=== PATIENT | male | born 1975 | race Caucasian/White ===

== ENCOUNTER 2018-07-08 11:21 | Inpatient (IN) | payer MEDICAID ==
[~2018-07-08] VITALS: Ht 160 cm; Wt 87.8 kg
--- NOTE | 2018-07-08 14:56 | ERD ---
ER Documentation Chief Complaint Chief Complaint JAUNDICE, STATES DRANK A LOT LAST MONTH, NO ABD PAIN/BLOATING, NO N/V HPI 42-year-old male patient who is an alcoholic for the past 3 years, states that he has been drinking more often in May 2018, one bottle of tequila or sometimes beer every other day reports that he started to notice some yellowing of his face and eyes about 1 week ago. States that he has had loss of appetite. Reports that he does not feel hungry to eat. States that he has lost a lot of weight in the last year, unintentionally. Patient denies any chest pain, shortness of breath, nausea, vomiting, diarrhea, neck stiffness, dysuria, urgency, frequency. ROS All systems reviewed and are negative except as per history of present illness. Allergies Allergies: Coded Allergies: No Known Allergy (Unverified , 07/08/18) PMhx/Soc Hx Alcohol Use: Yes Hx Substance Use: No Hx Tobacco Use: No Smoking Status: Never smoker Physical Exam Vitals Vital Signs Date Temp Pulse Resp B/P (MAP) Pulse Ox O2 O2 Flow FiO2 Time Delivery Rate 07/08/18 98.0 102 17 139/87 98 11:28 (104) Physical Exam Const: [id number], well-nourished. In no acute distress. Head: Atraumatic, normocephalic Eyes: Normal Conjunctiva without injection. No purulent discharge. Jaundiced sclera. ENT: Normal external ear, nose. Moist oropharynx without tonsillar exudates. Non-erythematous pharynx. Uvula midline. No drooling. No trismus. Neck: No cervical midline tenderness. Full range of motion. No meningismus. No cervical lymphadenopathy. No JVD. Resp: Clear to auscultation bilaterally. No wheezing, rhonchi, rales, or crackles. No accessory muscle use. No retractions. Cardio: Regular rate and rhythm. No murmurs, rubs or gallops. Abd: Soft, non distended. Normal bowel sounds. No palpable masses. No rebound tenderness. No guarding. Negative McBurney's point. Negative psoas sign. Negative obturator sign. : See exam in MDM. Skin: No petechiae or rashes. Jaundice of face. Back: No midline tenderness. No CVA tenderness. Ext: No cyanosis, or edema. Neur: Awake and alert. Normal gait. Normal coordination. Psych: Normal Mood and Affect Result Diagram: 07/08/18 1215 07/08/18 1215 Results 24 hrs Laboratory Tests Test 07/08/18 12:15 White Blood Count 17.1 10^3/ul Red Blood Count 3.55 10^6/ul Hemoglobin 12.3 g/dl Hematocrit 34.8 % Mean Corpuscular Volume 98.0 fl Mean Corpuscular Hemoglobin 34.6 pg Mean Corpuscular Hemoglobin Concent 35.3 g/dl Red Cell Distribution Width 15.3 % Platelet Count 303 10^3/UL Mean Platelet Volume 9.5 fl Immature Granulocytes % 1.300 % Neutrophils % 84.7 % Lymphocytes % 6.8 % Monocytes % 6.6 % Eosinophils % 0.2 % Basophils % 0.4 % Nucleated Red Blood Cells % 0.0 /100WBC Immature Granulocytes # 0.230 10^3/ul Neutrophils # 14.5 10^3/ul Lymphocytes # 1.2 10^3/ul Monocytes # 1.1 10^3/ul Eosinophils # 0.0 10^3/ul Basophils # 0.1 10^3/ul Nucleated Red Blood Cells # 0.0 10^3/ul Urine Color MAURILIO Urine Clarity CLEAR Urine pH 6.0 Urine Specific [place] 1.024 Urine Ketones NEGATIVE mg/dL Urine Nitrite NEGATIVE mg/dL Urine Bilirubin 2+ mg/dL Urine Urobilinogen 2+ mg/dL Urine Leukocyte Esterase NEGATIVE Blayne/ul Urine Microscopic RBC 0 /HPF Urine Microscopic WBC 4 /HPF Urine Bacteria FEW /HPF Urine Mucus MANY /HPF Urine Hemoglobin NEGATIVE mg/dL Urine Glucose 2+ mg/dL Urine Total Protein 1+ mg/dl Sodium Level 133 mmol/L Potassium Level 3.7 mmol/L Chloride Level 93 mmol/L Carbon Dioxide Level 29 mmol/L Anion Gap 11 Blood Urea Nitrogen 3 mg/dl Creatinine 0.42 mg/dl Est Glomerular Filtrat Rate mL/min > 60 mL/min Glucose Level 115 mg/dl Calcium Level 8.4 mg/dl Total Bilirubin 12.0 mg/dl Direct Bilirubin 9.80 mg/dl Indirect Bilirubin 2.2 mg/dl Aspartate Amino Transf (AST/SGOT) 102 IU/L Alanine Aminotransferase (ALT/SGPT) 8 IU/L Alkaline Phosphatase 258 IU/L Total Protein 7.5 g/dl Albumin 3.2 g/dl Globulin 4.30 g/dl Albumin/Globulin Ratio 0.74 Lipase < 10 U/L Procedures/MDM 42-year-old male patient with past medical history of alcoholism presents to the ED for jaundice. Patient is afebrile and nontoxic-appearing. Patient was further worked up with CBC, CMP, lipase, UA, gallbladder ultrasound. CBC: Leukocytosis of 17.1. Hbg 12.3. No e/o anemia. CMP: No e/o severe acidosis, alkalosis, renal failure, diabetic ketoacidosis, total bili 12.0 - elevated Lipase < 10 Urine: No leukocyte esterase, no nitrites, no hematuria. Discussed with patient that he has elevated total bilirubin and will need to be admitted here in the hospital for an MRCP to rule out choledocholithiasis and possible ERCP. This was discussed with my supervising physician, Dr. Hernández, who agreed to admit patient at this time. Patient is now under the care of Dr. Hernández. Departure Diagnosis: Primary Impression: Jaundice Additional Impression: Total bilirubin, elevated Condition: Fair JAMAL MCDONNELL PA-C Jul 08, 2018 14:56
--- NOTE | 2018-07-08 15:22 | ERD ---
ER Documentation Chief Complaint Chief Complaint JAUNDICE, STATES DRANK A LOT LAST MONTH HPI The patient is a 42-year-old male, presenting to the ER because of jaundice for the last week, denies pruritus, denies similar symptoms previously, denies fever, chills, neck pain, chest pain, dyspnea, abdominal pain, dysuria, diarrhea. He does not smoke, drinks moderately, denies illicit drug Past medical/surgical history: None ROS All systems reviewed and are negative except as per history of present illness. Allergies Allergies: Coded Allergies: No Known Allergy (Unverified , 07/08/18) PMhx/Soc Hx Alcohol Use: Yes Hx Substance Use: No Hx Tobacco Use: No Smoking Status: Never smoker Physical Exam Vitals Vital Signs Date Temp Pulse Resp B/P (MAP) Pulse Ox O2 O2 Flow FiO2 Time Delivery Rate 07/08/18 98.0 102 17 139/87 98 11:28 (104) Physical Exam Const: No acute distress. Jaundice Head: Atraumatic. Eyes: Icteric conjunctiva. ENT: Normal External Ears, Nose and Mouth. Neck: Full range of motion. No meningismus. Resp: Clear to auscultation bilaterally. Cardio: Regular rate and rhythm. Abd: Soft, non distended, normal bowel sounds, non tender. Right lower quadrant/right upper quadrant/epigastric/CVA tenderness Skin: No petechiae or rashes. Back: No midline or flank tenderness. Ext: No cyanosis, or edema. Neur: Awake and alert. No focal deficit Psych: Normal Mood and Affect. Result Diagram: 07/08/18 1215 07/08/18 1215 Results 24 hrs Laboratory Tests Test 07/08/18 12:15 White Blood Count 17.1 10^3/ul Red Blood Count 3.55 10^6/ul Hemoglobin 12.3 g/dl Hematocrit 34.8 % Mean Corpuscular Volume 98.0 fl Mean Corpuscular Hemoglobin 34.6 pg Mean Corpuscular Hemoglobin Concent 35.3 g/dl Red Cell Distribution Width 15.3 % Platelet Count 303 10^3/UL Mean Platelet Volume 9.5 fl Immature Granulocytes % 1.300 % Neutrophils % 84.7 % Lymphocytes % 6.8 % Monocytes % 6.6 % Eosinophils % 0.2 % Basophils % 0.4 % Nucleated Red Blood Cells % 0.0 /100WBC Immature Granulocytes # 0.230 10^3/ul Neutrophils # 14.5 10^3/ul Lymphocytes # 1.2 10^3/ul Monocytes # 1.1 10^3/ul Eosinophils # 0.0 10^3/ul Basophils # 0.1 10^3/ul Nucleated Red Blood Cells # 0.0 10^3/ul Urine Color MAURILIO Urine Clarity CLEAR Urine pH 6.0 Urine Specific [place] 1.024 Urine Ketones NEGATIVE mg/dL Urine Nitrite NEGATIVE mg/dL Urine Bilirubin 2+ mg/dL Urine Urobilinogen 2+ mg/dL Urine Leukocyte Esterase NEGATIVE Blayne/ul Urine Microscopic RBC 0 /HPF Urine Microscopic WBC 4 /HPF Urine Bacteria FEW /HPF Urine Mucus MANY /HPF Urine Hemoglobin NEGATIVE mg/dL Urine Glucose 2+ mg/dL Urine Total Protein 1+ mg/dl Sodium Level 133 mmol/L Potassium Level 3.7 mmol/L Chloride Level 93 mmol/L Carbon Dioxide Level 29 mmol/L Anion Gap 11 Blood Urea Nitrogen 3 mg/dl Creatinine 0.42 mg/dl Est Glomerular Filtrat Rate mL/min > 60 mL/min Glucose Level 115 mg/dl Calcium Level 8.4 mg/dl Total Bilirubin 12.0 mg/dl Direct Bilirubin 9.80 mg/dl Indirect Bilirubin 2.2 mg/dl Aspartate Amino Transf (AST/SGOT) 102 IU/L Alanine Aminotransferase (ALT/SGPT) 8 IU/L Alkaline Phosphatase 258 IU/L Total Protein 7.5 g/dl Albumin 3.2 g/dl Globulin 4.30 g/dl Albumin/Globulin Ratio 0.74 Lipase < 10 U/L Procedures/[place] [id number] Radiology Main Line: [phone] DIAGNOSTIC IMAGING REPORT Patient: DURAN BALLARD : 1975 Age: 42 Sex: M MR #: [id number] DOS: 07/08/18 1212 Ordering MD: JAMAL MCDONNELL PA-C Location: [facility] Room/Bed: PROCEDURE: US Abdomen (right upper quadrant). CLINICAL INDICATION: Jaundice TECHNIQUE: Multiple real-time longitudinal and transverse images of the right upper quadrant of the abdomen were acquired utilizing a curved array transducer. Images were reviewed on a high-resolution PACS workstation. COMPARISON: None FINDINGS: The liver is enlarged measuring 22.8 cm and demonstrates diffusely increased echogenicity without focal mass or intrahepatic biliary dilatation. The gallb ladder wall is edematous and thickened measuring up to 9 mm. There is no pericholecystic fluid or or gallstones. No intra or extrahepatic biliary dilatation is seen. The common bile duct measures 4.5 mm in maximal dimension. The visualized portions of the pancreas are unremarkable with obscuration of the tail of the pancreas. No free fluid is identified. The right kidney measures 11.9 cm in length. There is normal echogenicity within the right kidney. There is no perinephric fluid collection. No hydronephrosis, mass, or calculus is seen. IMPRESSION: 1. Hepatomegaly and increased hepatic echogenicity suggesting steatosis. 2. Thickened, edematous appearing gallbladder wall. If there is concern for acute cholecystitis, consider HIDA scan. RPTAT: JJ .Ilan Dobbins MD, MD Date Time Electronically viewed and signed by .Ilan Dobbins MD, MD on 07/08/2018 13:17 .A/ CC: JAMAL MCDONNELL PA-C [id number] MEDICAL MAKING DECISION: The patient is a 42-year-old male, presenting with acute painless jaundice he will be admitted for further evaluation. He has acute leukocytosis of unclear etiology, cannot r/o infectious etiology The differential diagnoses considered include but are not limited to GI malignancy, cholelithiasis, cholecystitis, choledocholithiasis, cholangitis, pancreatitis, hepatitis, gastritis, peptic ulcer disease, gastric ulcer, appendicitis, cystitis, diverticulitis, partial small bowel obstruction. Departure Diagnosis: Primary Impression: Jaundice Additional Impressions: Leukocytosis Anemia Condition: Fair Comments I discussed the findings with the patient. I discussed the patient with the hospitalist Dr Lopez at 3:15 am . who was made aware of the lab, the treatment, the patient condition. The patient is admitted to [facility] Disclaimer: Inadvertent spelling and grammatical errors are likely due to EHR/dictation software use and do not reflect on the overall quality of patient care. Also, please note that the electronic time recorded on this note does not necessarily reflect the actual time of the patient encounter. HIRAL FLORIAN MD Jul 08, 2018 15:22
--- NOTE | 2018-07-08 16:25 | HP ---
Date/Time of Note Date/Time of Note DATE: 07/08/18 TIME: 16:25 Assessment/Plan VTE Prophylaxis Pharmacological prophylaxis: other Lines/Catheters IV Catheter Type (from Nrs): Saline Lock Assessment/Plan Hospital Course Objective Physical exam General: Patient is laying in bed and answers questions appropriately Mentation: Patient is alert and oriented 4, Head: Normocephalic atraumatic Eyes: EOMI, pupils reactive to light, scleral icterus Neck: Supple, nontender, midline Respiratory: Clear to auscultation bilaterally Cardiovascular: regular rate, no obvious murmurs Gastrointestinal: non-tender to palpation, bowel sounds heard. Neurological: Moves all extremities spontaneously Skin: Mildly yellowing of the skin Assessment and plan Painless jaundice -Ultrasound gallbladder not showing specific etiology within the liver, gallbladder showing mild edema but no definite cholecystitis, no abdominal pain -lipase negative -MRCP pending -GI consulted, Dr. Mohaumd -Monitor Loss of appetite -Likely secondary to above jaundice whatever the cause -Since patient was alcoholic will start PPI and Carafate -We will also consider other issues such as possible malignancy once the initial workup for patient's jaundice has been complete as patient did report a sudden weight loss in the past year. However this may be due to a variety of reasons, will return back to the discussion once above jaundice issue is worked up Alcohol use -Patient's last drink was approximately 1 month ago -History of alcohol abuse for the past 3 years Leukocytosis -Unknown cause -No fever -Blood cultures pending -UTI negative -Empiric antibiotic for now Disposition -Pending MRCP and GI consult for painless jaundice Result Diagram: 07/08/18 1215 07/08/18 1215 Results 24hrs Laboratory Tests Test 07/08/18 12:15 White Blood Count 17.1 H Red Blood Count 3.55 L Hemoglobin 12.3 L Hematocrit 34.8 L Mean Corpuscular Volume 98.0 Mean Corpuscular Hemoglobin 34.6 H Mean Corpuscular Hemoglobin Concent 35.3 Red Cell Distribution Width 15.3 H Platelet Count 303 Mean Platelet Volume 9.5 Immature Granulocytes % 1.300 H Neutrophils % 84.7 H Lymphocytes % 6.8 L Monocytes % 6.6 Eosinophils % 0.2 Basophils % 0.4 Nucleated Red Blood Cells % 0.0 Immature Granulocytes # 0.230 H Neutrophils # 14.5 H Lymphocytes # 1.2 Monocytes # 1.1 H Eosinophils # 0.0 Basophils # 0.1 Nucleated Red Blood Cells # 0.0 Urine Color MAURILIO Urine Clarity CLEAR Urine pH 6.0 Urine Specific [place] 1.024 Urine Ketones NEGATIVE Urine Nitrite NEGATIVE Urine Bilirubin 2+ H Urine Urobilinogen 2+ H Urine Leukocyte Esterase NEGATIVE Urine Microscopic RBC 0 Urine Microscopic WBC 4 Urine Bacteria FEW A Urine Mucus MANY A Urine Hemoglobin NEGATIVE Urine Glucose 2+ H Urine Total Protein 1+ H Sodium Level 133 L Potassium Level 3.7 Chloride Level 93 L Carbon Dioxide Level 29 Anion Gap 11 Blood Urea Nitrogen 3 L Creatinine 0.42 L Est Glomerular Filtrat Rate mL/min > 60 Glucose Level 115 Calcium Level 8.4 Total Bilirubin 12.0 H Direct Bilirubin 9.80 H Indirect Bilirubin 2.2 H Aspartate Amino Transf (AST/SGOT) 102 H Alanine Aminotransferase (ALT/SGPT) 8 L Alkaline Phosphatase 258 H Total Protein 7.5 Albumin 3.2 L Globulin 4.30 H Albumin/Globulin Ratio 0.74 Lipase < 10 L HPI/ROS Admit Date/Time Admit Date/Time Jul 08, 2018 at 15:15 Hx of Present Illness Patient is a male with no significant past medical history who presents to [facility] for 1 week onset of jaundice. Patient states that he suddenly found to be more yellow in the past week. Patient does have a history of alcohol abuse and states that he was an alcoholic for the past 3 years as much as one bottle of tequila or equivalent amount of beer every day. Patient states that he has since lost appetite, does not feel hungry to eat and has lost a lot of weight in the last year. Patient currently describes no pain whatsoever, no chest pain no abdominal pain no headache no shortness of breath no nausea no vomiting no leg pain. PMH/Family/Social Past Medical History Medications Current Medications IV Flush (NS 3 ml) 3 ml PER PROTOCOL IV ; Start 07/08/18 at 16:30; Status UNV Ondansetron HCl (Zofran Inj) 4 mg Q6H PRN IV NAUSEA AND/OR VOMITING; Start 07/08/18 at 16:30; Status UNV Morphine Sulfate (morphine) 2 mg Q4H PRN IV PAIN LEVEL 7-10; Start 07/08/18 at 16:30; Status UNV Coded Allergies: No Known Allergy (Unverified , 07/08/18) Social History Smoking Status: Never smoker Exam/Review of Systems Vital Signs Vitals Vital Signs Date Temp Pulse Resp B/P (MAP) Pulse Ox O2 O2 Flow FiO2 Time Delivery Rate 07/08/18 98.3 100 17 119/64 98 Room Air 16:03 (82) JACOB MCKEON Jul 08, 2018 16:25
[2018-07-08] MEDS ORDERED: ONDANSETRON 4 MG INJ IV PRN (16:30)
[2018-07-08] MEDS ORDERED: NACL 0.9% 3 ML SYG IV SCH (16:30)
[2018-07-08] MEDS ORDERED: morphine SULFATE/PF (2 MG/2 ML) SYG IV PRN (16:30)
[2018-07-08 16:40] VITALS: BP 128/74; PULSE 99; RESP 18
[2018-07-08 16:56] VITALS: Ht 160 cm; Wt 87.8 kg
[2018-07-08] MEDS: SOD CHLORIDE 0.9% 1,000 ML IV SCH (17:42)
[2018-07-08] MEDS: SUCRALFATE (100 MG/ML) 10ML CUP PO SCH ×2 (17:43→21:36)
[2018-07-08] MEDS: PANTOPRAZOLE 40 MG INJ IV SCH (18:08)
[2018-07-08] MEDS: CEFTRIAXONE 1 GM/50 ML (PMX) 50 ML IVPB SCH (18:08)
[2018-07-08 20:06] VITALS: BP 127/70; PULSE 106; RESP 18
[2018-07-09 02:58] VITALS: BP 119/74; PULSE 103; RESP 20
[2018-07-09] MEDS: PANTOPRAZOLE 40 MG INJ IV SCH ×2 (06:39→17:00)
[2018-07-09 07:34] VITALS: BP 122/68; RESP 16
[2018-07-09] MEDS: SUCRALFATE (100 MG/ML) 10ML CUP PO SCH ×4 (08:01→20:01)
--- NOTE | 2018-07-09 09:52 | PN ---
Date/Time of Note Date/Time of Note DATE: 07/09/18 TIME: 09:51 Assessment/Plan VTE Prophylaxis Risk score (from [facility])>0 risk: 0 SCD applied (from [facility]): No SCD contraindicated: low risk/ambulating Pharmacological prophylaxis: NA/contraindicated Pharm contraindication: low risk/ambulating Lines/Catheters IV Catheter Type (from [facility]): Saline Lock Assessment/Plan Result Diagram: 07/09/18 0540 07/09/18 0540 Results 24hrs Laboratory Tests Test 07/08/18 12:15 07/09/18 05:40 White Blood Count 17.1 H 14.0 H Red Blood Count 3.55 L 3.19 L Hemoglobin 12.3 L 11.2 L Hematocrit 34.8 L 31.5 L Mean Corpuscular Volume 98.0 98.7 Mean Corpuscular Hemoglobin 34.6 H 35.1 H Mean Corpuscular Hemoglobin Concent 35.3 35.6 Red Cell Distribution Width 15.3 H 15.5 H Platelet Count 303 292 Mean Platelet Volume 9.5 9.5 Immature Granulocytes % 1.300 H 1.200 H Neutrophils % 84.7 H 81.0 H Lymphocytes % 6.8 L 9.4 L Monocytes % 6.6 7.6 Eosinophils % 0.2 0.5 Basophils % 0.4 0.3 Nucleated Red Blood Cells % 0.0 0.0 Immature Granulocytes # 0.230 H 0.170 H Neutrophils # 14.5 H 11.4 H Lymphocytes # 1.2 1.3 Monocytes # 1.1 H 1.1 H Eosinophils # 0.0 0.1 Basophils # 0.1 0.0 Nucleated Red Blood Cells # 0.0 0.0 Urine Color MAURILIO Urine Clarity CLEAR Urine pH 6.0 Urine Specific [place] 1.024 Urine Ketones NEGATIVE Urine Nitrite NEGATIVE Urine Bilirubin 2+ H Urine Urobilinogen 2+ H Urine Leukocyte Esterase NEGATIVE Urine Microscopic RBC 0 Urine Microscopic WBC 4 Urine Bacteria FEW A Urine Mucus MANY A Urine Hemoglobin NEGATIVE Urine Glucose 2+ H Urine Total Protein 1+ H Sodium Level 133 L 134 L Potassium Level 3.7 4.6 Chloride Level 93 L 94 L Carbon Dioxide Level 29 31 Anion Gap 11 9 Blood Urea Nitrogen 3 L 4 L Creatinine 0.42 L 0.48 L Est Glomerular Filtrat Rate mL/min > 60 > 60 Glucose Level 115 101 Calcium Level 8.4 8.2 L Total Bilirubin 12.0 H 12.0 H Direct Bilirubin 9.80 H 9.90 H Indirect Bilirubin 2.2 H 2.1 H Aspartate Amino Transf (AST/SGOT) 102 H 81 H Alanine Aminotransferase (ALT/SGPT) 8 L 13 Alkaline Phosphatase 258 H 203 H Total Protein 7.5 6.6 Albumin 3.2 L 2.7 L Globulin 4.30 H 3.90 H Albumin/Globulin Ratio 0.74 0.69 Lipase < 10 L Segmented Neutrophils % (Manual) 52 Band Neutrophils % (Manual) 34 H Lymphocytes % (Manual) 7 L Monocytes % (Manual) 4 Eosinophils % (Manual) 1 Metamyelocytes % (manual) 1 H Promyelocytes % (Manual) 1 H Neutrophils # (Manual) 7.9 H Band Neutrophils # 4.7 H Lymphocytes (Manual) 0.9 Monocytes # (Manual) 0.5 Metamyelocytes # 0.1 H Promyelocytes # 0.1 H Platelet Estimate NORMAL Giant Platelets 1 H Polychromasia 3+ Hypochromasia 2+ Poikilocytosis 1+ Anisocytosis 3+ Macrocytosis 3+ Hemoglobin A1c 5.2 Magnesium Level 2.0 Subjective 24 Hr Interval Summary Free Text/Dictation Objective: No new complaints, patient drinks a lot of alcohol but doesn't consider himself an alcoholic, states he doesn't have to drink every day, but he does have a hx of alcoholism Jaundice was first noticed a week ago. No other symptoms No hx of similar, no recent travel, no family hx of similar Physical exam General: Patient is laying in bed and answers questions appropriately Mentation: Patient is alert and oriented 4, Head: Normocephalic atraumatic Eyes: EOMI, pupils reactive to light, scleral icterus ++ Neck: Supple, nontender, midline Respiratory: Clear to auscultation bilaterally Cardiovascular: regular rate, no obvious murmurs Gastrointestinal: non-tender to palpation, bowel sounds heard. Neurological: Moves all extremities spontaneously Skin: Mildly yellowing of the skin Assessment and plan 42 yo M who resented to ER for evaluation of painless jaundice 1. Painless jaundice in a known alcoholic -Combined hyperbilirubinemia -likely 2/2 alcoholic hepatitis AST>>ALT -patient had been drinking all weekend prior to presentation -MRCP and USS show no evidence of obstruction -Await GI review and recommendations 2. Incidental concern for acute cholecystitis on MRCP -patient is currently asymptomatic, will review images with general surgery and await their recommendations 3. Chronic Alcohol use and abuse -counselled daily for at least 3 mins on the need to quit alcohol abuse -SW to help provide resources 4. Leucocytosis -improving, likely 2.2 #1 Disposition -Await treatment recommendations from GI -r/o Viral hepatitis -continue supportive care and trend labs -continue vitamin supplementation -f/u protime levels to calculate DF score -Further interventions per course Exam/Review of Systems Vital Signs Vitals Vital Signs Date Temp Pulse Resp B/P (MAP) Pulse Ox O2 O2 Flow FiO2 Time Delivery Rate 07/09/18 99.3 16 122/68 94 Room Air 07:34 (86) 07/09/18 103 02:58 Intake and Output 07/08/18 07/08/18 07/09/18 1515:00 23:00 07:00 IntakeIntake Total 50 ml BalanceBalance 50 ml Medications Medications Current Medications IV Flush (NS 3 ml) 3 ml PER PROTOCOL IV ; Start 07/08/18 at 16:30 Ondansetron HCl (Zofran Inj) 4 mg Q6H PRN IV NAUSEA AND/OR VOMITING; Start 07/08/18 at 16:30 Morphine Sulfate (morphine SULFATE (PF)) 2 mg Q4H PRN IV PAIN LEVEL 7-10; Start 07/08/18 at 16:30 Sodium Chloride 1,000 ml @ 30 mls/hr Q24H IV Last administered on 07/08/18at 17:42; Admin Dose 30 MLS/HR; Start 07/08/18 at 16:30; Stop 07/10/18 at 01:49 Pantoprazole (Protonix Iv) 40 mg BID@06,18 IV Last administered on 07/09/18at 06:39; Admin Dose 40 MG; Start 07/08/18 at 18:00 Sucralfate (Carafate Susp) 1 gm QID PO Last administered on 07/09/18at 08:01; Admin Dose 1 GM; Start 07/08/18 at 17:00 Ceftriaxone Sodium 50 ml @ 100 mls/hr Q24H IVPB Last administered on 07/08/18at 18:08; Admin Dose 100 MLS/HR; Start 07/08/18 at 17:30 Imaging Imaging PROCEDURE: MR Abdomen. MRCP. CLINICAL INDICATION: Jaundice and upper abdominal pain TECHNIQUE: Multiplanar multi sequence imaging of the abdomen without contrast. MRCP sequences were performed including 3-D maximum intensity projection reconstructed images. COMPARISON: Ultrasound 07/08/2018 FINDINGS: The study is limited by motion artifact and other central image artifact. The liver is enlarged, 23.3 cm in length. Diffuse hepatic steatosis is seen. No gross focal liver lesions. The spleen is enlarged, 16.4 cm. Linear areas of low attenuation in the posteroinferior spleen may represent infarcts. No definite abnormality of the adrenals or kidneys. Evaluation of the pancreas is limited. No gross abnormality is seen. As seen on ultrasound, there is marked gallbladder wall thickening and edema with some pericholecystic fluid. No visible gallstones. No gross intra or extrahepatic biliary ductal dilatation. No gross choledocholithiasis. No adenopathy of the upper abdomen is seen. Mild perirenal edema. MRCP sequences are very limited. IMPRESSION: Probable acute cholecystitis. The gallbladder wall is markedly edematous and irregular. No visible gallstones or choledocholithiasis. Hepatosplenomegaly and hepatic steatosis. Possible infarcts of the posteroinferior spleen. RPTAT: [facility] Physician Ronnie Date Time Electronically viewed and signed by Kajal Almanza Physician on 07/09/2018 05:05 LE/ CC: JACOB MCKEON [id number] JOSH LOREDO Jul 09, 2018 09:52
[2018-07-09 14:00] VITALS: BP 113/71; PULSE 109; RESP 18
--- NOTE | 2018-07-09 15:13 | CONS ---
Date/Time of Note Date/Time of Note DATE: 07/09/18 TIME: 15:00 Assessment/Plan Assessment/Plan Hospital Course Summary Assessment and Plan: Assessment: Query alcoholic hepatitis- given sx of jaundice, poor appetite, fevers, and hepatomegaly -Pt states last drink 1 month ago, however labs suggest patient may have been drinking more recently Elevated liver enzymes with direct hyperbilirubinemia Hepatosplenomegaly and hepatic steatosis. Possible infarcts of the posteroinferior spleen. History of alcohol abuse- x3 bottle of tequila every weekend for at least 1 year -Quit drinking alcohol in May 2018 Poor appetite Leukocytosis, unclear etiology Plan: Will order PT/INR to assess DF- Continue to monitor labs Hepatitis panel pending Will check NOAM, AMA, ASMA Continue current regimen Encourage PO intake Blood cx pending Patient seen in collaboration with Result Diagram: 07/09/18 0540 07/09/18 0540 Results 24hrs Laboratory Tests Test 07/09/18 05:40 White Blood Count 14.0 H Red Blood Count 3.19 L Hemoglobin 11.2 L Hematocrit 31.5 L Mean Corpuscular Volume 98.7 Mean Corpuscular Hemoglobin 35.1 H Mean Corpuscular Hemoglobin Concent 35.6 Red Cell Distribution Width 15.5 H Platelet Count 292 Mean Platelet Volume 9.5 Immature Granulocytes % 1.200 H Neutrophils % 81.0 H Segmented Neutrophils % (Manual) 52 Band Neutrophils % (Manual) 34 H Lymphocytes % 9.4 L Lymphocytes % (Manual) 7 L Monocytes % 7.6 Monocytes % (Manual) 4 Eosinophils % 0.5 Eosinophils % (Manual) 1 Basophils % 0.3 Metamyelocytes % (manual) 1 H Promyelocytes % (Manual) 1 H Nucleated Red Blood Cells % 0.0 Immature Granulocytes # 0.170 H Neutrophils # 11.4 H Neutrophils # (Manual) 7.9 H Band Neutrophils # 4.7 H Lymphocytes (Manual) 0.9 Lymphocytes # 1.3 Monocytes # 1.1 H Monocytes # (Manual) 0.5 Eosinophils # 0.1 Basophils # 0.0 Metamyelocytes # 0.1 H Promyelocytes # 0.1 H Nucleated Red Blood Cells # 0.0 Platelet Estimate NORMAL Giant Platelets 1 H Polychromasia 3+ Hypochromasia 2+ Poikilocytosis 1+ Anisocytosis 3+ Macrocytosis 3+ Sodium Level 134 L Potassium Level 4.6 Chloride Level 94 L Carbon Dioxide Level 31 Anion Gap 9 Blood Urea Nitrogen 4 L Creatinine 0.48 L Est Glomerular Filtrat Rate mL/min > 60 Glucose Level 101 Hemoglobin A1c 5.2 Calcium Level 8.2 L Magnesium Level 2.0 Total Bilirubin 12.0 H Direct Bilirubin 9.90 H Indirect Bilirubin 2.1 H Aspartate Amino Transf (AST/SGOT) 81 H Alanine Aminotransferase (ALT/SGPT) 13 Alkaline Phosphatase 203 H Total Protein 6.6 Albumin 2.7 L Globulin 3.90 H Albumin/Globulin Ratio 0.69 CC: SHERI PERLA Scarlett ; Consultation Date/Type/Reason Admit Date/Time Jul 08, 2018 at 15:15 Date of Consultation: Jul 09, 2018 Type of Consult GI Reason for Consultation Painless jaundice Hx of Present Illness This is a 42 year old male with PMH of heavy alcohol consumption, who presented to the ED with c/o his eyes being yellow x1 week. With workup patient noted to have leukocytosis with a WBC count of 17.1, hemoglobin 12.3, hematocrit 34.8, MCV 98.0, MCH 34.6, platelet count 303 coagulation was not checked additionally patient noted to have direct hyperbilirubinemia total bilirubin 12.0, direct bilirubin 9.90. AST 102, ALT 8, alkaline phosphatase 258. LFTs rechecked today AST is 81, ALT 13, alkaline phosphatase 203 bilirubin remains the same, WBCs 14.0. Since hospitalization patient with fevers and T-max of 100.4. Patient states he quit drinking about 1 month ago prior to that he would drink 1 bottle of tequila each day of the weekend including Sunday every about 3 bottles of tequila for at least the past year. She denies nausea/vomiting, hematemesis, hematochezia, or melena he also denies abdominal pain. Of note patient with poor appetite for the past but he denies history of drug use or smoking. Hepatitis panel has been ordered and is currently pending. Plan to order additional lab work as well as PT/INR to assess discriminant function given patient's labs more likely patient has drank more recently than stated. Based on DF score we will assess need to treat possible alcoholic hepatitis. Review of Systems: A 12 system, review was conducted and is negative except as noted in the HPI or here. Past Medical History Medications Current Medications IV Flush (NS 3 ml) 3 ml PER PROTOCOL IV ; Start 07/08/18 at 16:30 Ondansetron HCl (Zofran Inj) 4 mg Q6H PRN IV NAUSEA AND/OR VOMITING; Start 07/08/18 at 16:30 Morphine Sulfate (morphine SULFATE (PF)) 2 mg Q4H PRN IV PAIN LEVEL 7-10; Start 07/08/18 at 16:30 Sodium Chloride 1,000 ml @ 30 mls/hr Q24H IV Last administered on 07/08/18at 17:42; Admin Dose 30 MLS/HR; Start 07/08/18 at 16:30; Stop 07/10/18 at 01:49 Pantoprazole (Protonix Iv) 40 mg BID@06,18 IV Last administered on 07/09/18at 06:39; Admin Dose 40 MG; Start 07/08/18 at 18:00 Sucralfate (Carafate Susp) 1 gm QID PO Last administered on 07/09/18at 12:03; Admin Dose 1 GM; Start 07/08/18 at 17:00 Ceftriaxone Sodium 50 ml @ 100 mls/hr Q24H IVPB Last administered on 07/08/18at 18:08; Admin Dose 100 MLS/HR; Start 07/08/18 at 17:30 Allergies: Coded Allergies: No Known Allergy (Unverified , 07/08/18) Social History Smoking Status: Former smoker Exam/Review of Systems Vital Signs Vitals Vital Signs Date Temp Pulse Resp B/P (MAP) Pulse Ox O2 O2 Flow FiO2 Time Delivery Rate 07/09/18 99.3 16 122/68 94 Room Air 07:34 (86) 07/09/18 103 02:58 Intake and Output 07/08/18 07/08/18 07/09/18 1515:00 23:00 07:00 IntakeIntake Total 50 ml BalanceBalance 50 ml Exam Constitutional: alert, oriented, other (jaunidce) Psych: no complaints Head: normocephalic Eyes: icteric Neck: supple Respiratory: clear to auscultation Cardiovascular: regular rate and rhythm Gastrointestinal: soft, bowel sounds, hepatomegaly; No firm, No mass, No rebound or guarding, No tender Medications Medications Current Medications IV Flush (NS 3 ml) 3 ml PER PROTOCOL IV ; Start 07/08/18 at 16:30 Ondansetron HCl (Zofran Inj) 4 mg Q6H PRN IV NAUSEA AND/OR VOMITING; Start 07/08/18 at 16:30 Morphine Sulfate (morphine SULFATE (PF)) 2 mg Q4H PRN IV PAIN LEVEL 7-10; Start 07/08/18 at 16:30 Sodium Chloride 1,000 ml @ 30 mls/hr Q24H IV Last administered on 07/08/18at 17:42; Admin Dose 30 MLS/HR; Start 07/08/18 at 16:30; Stop 07/10/18 at 01:49 Pantoprazole (Protonix Iv) 40 mg BID@06,18 IV Last administered on 07/09/18at 06:39; Admin Dose 40 MG; Start 07/08/18 at 18:00 Sucralfate (Carafate Susp) 1 gm QID PO Last administered on 07/09/18at 12:03; Admin Dose 1 GM; Start 07/08/18 at 17:00 Ceftriaxone Sodium 50 ml @ 100 mls/hr Q24H IVPB Last administered on 07/08/18at 18:08; Admin Dose 100 MLS/HR; Start 07/08/18 at 17:30 BUFFY FAN Jul 09, 2018 15:13
[2018-07-09] MEDS ORDERED: morphine LIQ (10 MG/5 ML) CUP PO PRN (16:30)
[2018-07-09] MEDS: SOD CHLORIDE 0.9% 1,000 ML IV SCH (16:30)
[2018-07-09] MEDS: THIAMINE 100 MG TAB PO SCH (16:54)
[2018-07-09] MEDS: MULTIVITAMINS THERAPEUTIC TAB PO SCH (16:54)
[2018-07-09] MEDS: CHLORDIAZEPOXIDE 25 MG CAP PO SCH ×2 (16:54→20:01)
[2018-07-09] MEDS: CEFTRIAXONE 1 GM/50 ML (PMX) 50 ML IVPB SCH (16:55)
[2018-07-09] MEDS: FOLIC ACID 1 MG TAB PO SCH (16:55)
[2018-07-09] MEDS: PYRIDOXINE 50 MG TAB PO SCH (16:55)
[2018-07-09 19:47] VITALS: BP 125/72; PULSE 103; RESP 20
[2018-07-10 02:23] VITALS: BP 109/57; PULSE 106; RESP 20
[2018-07-10] MEDS: PANTOPRAZOLE 40 MG INJ IV SCH ×2 (05:09→17:21)
[2018-07-10 07:56] VITALS: BP 117/65; PULSE 111; RESP 20
[2018-07-10] MEDS: MULTIVITAMINS THERAPEUTIC TAB PO SCH (08:58)
[2018-07-10] MEDS: PYRIDOXINE 50 MG TAB PO SCH (08:59)
[2018-07-10] MEDS: CHLORDIAZEPOXIDE 25 MG CAP PO SCH ×4 (08:59→20:27)
[2018-07-10] MEDS: FOLIC ACID 1 MG TAB PO SCH (08:59)
[2018-07-10] MEDS: THIAMINE 100 MG TAB PO SCH (08:59)
[2018-07-10] MEDS: SUCRALFATE (100 MG/ML) 10ML CUP PO SCH ×4 (09:00→20:27)
--- NOTE | 2018-07-10 11:55 | PN ---
Date/Time of Note Date/Time of Note DATE: 07/10/18 TIME: 11:51 Assessment/Plan VTE Prophylaxis Risk score (from Nsg)>0 risk: 1 Pharmacological prophylaxis: NA/contraindicated Pharm contraindication: low risk/ambulating Lines/Catheters IV Catheter Type (from Nrsg): Saline Lock Assessment/Plan Hospital Course 1. Painless jaundice in a known alcoholic 2/2 alcoholic hepatitis AST>>ALT -patient had been drinking all weekend prior to presentation -MRCP and USS show no evidence of obstruction -GI consultation appreciated 2. Incidental concern for acute cholecystitis on MRCP Patient is currently asymptomatic, no clinical evidence of acute cholecystitis gallbladder wall swelling is likely secondary to hepatitis 3. Chronic Alcohol use and abuse -counselled on the need to quit alcohol abuse - to help provide resources 4. Reactive leucocytosis secondary to #1-improving Prophylaxis: Ambulation DC planning: LFTs have increased today, anticipate DC once LFTs trend Result Diagram: 07/10/18 0610 07/10/18 0610 Results 24hrs Laboratory Tests Test 07/09/18 17:35 07/10/18 06:10 Prothrombin Time 19.3 H 18.9 H Prothrombin Time Ratio 1.5 1.5 INR International Normalized Ratio 1.62 1.57 White Blood Count 14.7 H Red Blood Count 3.28 L Hemoglobin 11.3 L Hematocrit 32.7 L Mean Corpuscular Volume 99.7 Mean Corpuscular Hemoglobin 34.5 H Mean Corpuscular Hemoglobin Concent 34.6 Red Cell Distribution Width 15.5 H Platelet Count 289 Mean Platelet Volume 9.9 Immature Granulocytes % 1.700 H Neutrophils % 81.3 H Lymphocytes % 8.2 L Monocytes % 7.7 Eosinophils % 0.7 Basophils % 0.4 Nucleated Red Blood Cells % 0.0 Immature Granulocytes # 0.250 H Neutrophils # 12.0 H Lymphocytes # 1.2 Monocytes # 1.1 H Eosinophils # 0.1 Basophils # 0.1 Nucleated Red Blood Cells # 0.0 Sodium Level 131 L Potassium Level 3.2 L Chloride Level 98 Carbon Dioxide Level 25 Anion Gap 8 Blood Urea Nitrogen 4 L Creatinine 0.44 L Est Glomerular Filtrat Rate mL/min > 60 Glucose Level 96 Calcium Level 8.0 L Magnesium Level 2.1 Total Bilirubin 13.7 H Direct Bilirubin 11.60 H Indirect Bilirubin 2.1 H Aspartate Amino Transf (AST/SGOT) 90 H Alanine Aminotransferase (ALT/SGPT) 10 L Alkaline Phosphatase 229 H Total Protein 6.6 Albumin 2.8 L Globulin 3.80 H Albumin/Globulin Ratio 0.73 Subjective 24 Hr Interval Summary Constitutional: no complaints Exam/Review of Systems Vital Signs Vitals Vital Signs Date Temp Pulse Resp B/P (MAP) Pulse Ox O2 O2 Flow FiO2 Time Delivery Rate 07/10/18 99.1 111 20 117/65 96 Room Air 07:56 (82) Intake and Output 07/09/18 07/09/18 07/10/18 1515:00 23:00 07:00 IntakeIntake Total 2060 ml 250 ml BalanceBalance 2060 ml 250 ml Exam Constitutional: alert, oriented Respiratory: clear to auscultation Cardiovascular: regular rate and rhythm Gastrointestinal: soft; No distended Musculoskeletal: nl extremities to inspection Medications Medications Current Medications IV Flush (NS 3 ml) 3 ml PER PROTOCOL IV ; Start 07/08/18 at 16:30 Ondansetron HCl (Zofran Inj) 4 mg Q6H PRN IV NAUSEA AND/OR VOMITING; Start 07/08/18 at 16:30 Pantoprazole (Protonix Iv) 40 mg BID@06,18 IV Last administered on 07/10/18at 05:09; Admin Dose 40 MG; Start 07/08/18 at 18:00 Sucralfate (Carafate Susp) 1 gm QID PO Last administered on 07/10/18at 09:00; Admin Dose 1 GM; Start 07/08/18 at 17:00 Ceftriaxone Sodium 50 ml @ 100 mls/hr Q24H IVPB Last administered on 07/09/18at 16:55; Admin Dose 100 MLS/HR; Start 07/08/18 at 17:30 Thiamine HCl (Vitamin B1) 100 mg DAILY PO Last administered on 07/10/18at 08:59; Admin Dose 100 MG; Start 07/09/18 at 16:00 Folic Acid (Folic Acid) 1 mg DAILY PO Last administered on 07/10/18at 08:59; Admin Dose 1 MG; Start 07/09/18 at 16:00 Pyridoxine HCl (Vitamin B6) 25 mg DAILY PO Last administered on 07/10/18at 08:59; Admin Dose 25 MG; Start 07/09/18 at 17:00 Multivitamins Therapeutic (Theragran) 1 tab DAILY PO Last administered on 07/10/18at 08:58; Admin Dose 1 TAB; Start 07/09/18 at 16:00 Chlordiazepoxide (Librium) 25 mg QID PO Last administered on 07/10/18at 08:59; Admin Dose 25 MG; Start 07/09/18 at 17:00; Stop 07/12/18 at 16:59 Morphine Sulfate (morphine) 6 mg Q4H PRN PO SEVERE PAIN LEVEL 7-10; Start 07/09/18 at 16:30 DONOVAN LUNA Jul 10, 2018 11:55
[2018-07-10 14:00] VITALS: BP 128/76; PULSE 102; RESP 18
--- NOTE | 2018-07-10 17:05 | PN ---
Date/Time of Note Date/Time of Note DATE: 07/10/18 TIME: 17:03 Assessment/Plan VTE Prophylaxis Risk score (from Nsg)>0 risk: 1 Pharmacological prophylaxis: other (scds) Lines/Catheters IV Catheter Type (from Nrsg): Saline Lock Assessment/Plan Hospital Course Summary Assessment and Plan: Assessment: Query alcoholic hepatitis- given sx of jaundice, poor appetite, fevers, and hepatomegaly - DF 32.2 -Pt states last drink 1 month ago, however labs suggest patient may have been drinking more recently Elevated liver enzymes with direct hyperbilirubinemia Hepatosplenomegaly and hepatic steatosis. Possible infarcts of the posteroi nferior spleen. History of alcohol abuse- x3 bottle of tequila every weekend for at least 1 year -Quit drinking alcohol in May 2018 Poor appetite Leukocytosis, unclear etiology Thickened, edematous appearing gallbladder wall Plan: DF32.2 will start pentoxifylline Continue to monitor labs Hepatitis panel- neg NOAM, AMA, ASMA- pending Continue current regimen Encourage PO intake Blood cx- no growth thus far d/c planning per hospitalist Patient seen in collaboration with /Cade Subjective: Course reviewed with nursing staff Patient interviewed and examined All labs, imaging and other results reviewed The patient feels well No c/o abd pain, nausea or vomiting Discussed labs results and plan to start new medication pt verbalized understanding and is agreeable to plan Pt to f/u with Gi after discharge PHYSICAL EXAMINATION: GENERAL: Alert & oriented x 3, jaundice in no acute distress SKIN: No lesions CARDIOVASCULAR: Heart: Regular rate and rhythm, RESPIRATORY: Lungs clear to auscultation GASTROINTESTINAL AND LIVER: Abdomen: Soft, non tenderness, non-distended, no h ernias, no masses, no organomegaly, no ascites, no guarding, no rebound tenderness, normoactive bowel sounds. Rectal: Deferred. EXTREMITIES: No cyanosis, clubbing or edema. Result Diagram: 07/10/18 0610 07/10/18 0610 Results 24hrs Laboratory Tests Test 07/09/18 17:35 07/10/18 06:10 Prothrombin Time 19.3 H 18.9 H Prothrombin Time Ratio 1.5 1.5 INR International Normalized Ratio 1.62 1.57 White Blood Count 14.7 H Red Blood Count 3.28 L Hemoglobin 11.3 L Hematocrit 32.7 L Mean Corpuscular Volume 99.7 Mean Corpuscular Hemoglobin 34.5 H Mean Corpuscular Hemoglobin Concent 34.6 Red Cell Distribution Width 15.5 H Platelet Count 289 Mean Platelet Volume 9.9 Immature Granulocytes % 1.700 H Neutrophils % 81.3 H Lymphocytes % 8.2 L Monocytes % 7.7 Eosinophils % 0.7 Basophils % 0.4 Nucleated Red Blood Cells % 0.0 Immature Granulocytes # 0.250 H Neutrophils # 12.0 H Lymphocytes # 1.2 Monocytes # 1.1 H Eosinophils # 0.1 Basophils # 0.1 Nucleated Red Blood Cells # 0.0 Sodium Level 131 L Potassium Level 3.2 L Chloride Level 98 Carbon Dioxide Level 25 Anion Gap 8 Blood Urea Nitrogen 4 L Creatinine 0.44 L Est Glomerular Filtrat Rate mL/min > 60 Glucose Level 96 Calcium Level 8.0 L Magnesium Level 2.1 Total Bilirubin 13.7 H Direct Bilirubin 11.60 H Indirect Bilirubin 2.1 H Aspartate Amino Transf (AST/SGOT) 90 H Alanine Aminotransferase (ALT/SGPT) 10 L Alkaline Phosphatase 229 H Total Protein 6.6 Albumin 2.8 L Globulin 3.80 H Albumin/Globulin Ratio 0.73 Exam/Review of Systems Vital Signs Vitals Vital Signs Date Temp Pulse Resp B/P (MAP) Pulse Ox O2 O2 Flow FiO2 Time Delivery Rate 07/10/18 98.9 102 18 128/76 98 Room Air 14:00 (93) Intake and Output 07/09/18 07/09/18 07/10/18 1515:00 23:00 07:00 IntakeIntake Total 2060 ml 250 ml BalanceBalance 2060 ml 250 ml Medications Medications Current Medications IV Flush (NS 3 ml) 3 ml PER PROTOCOL IV ; Start 07/08/18 at 16:30 Ondansetron HCl (Zofran Inj) 4 mg Q6H PRN IV NAUSEA AND/OR VOMITING; Start 07/08/18 at 16:30 Pantoprazole (Protonix Iv) 40 mg BID@06,18 IV Last administered on 07/10/18at 05:09; Admin Dose 40 MG; Start 07/08/18 at 18:00 Sucralfate (Carafate Susp) 1 gm QID PO Last administered on 07/10/18at 12:48; Admin Dose 1 GM; Start 07/08/18 at 17:00 Ceftriaxone Sodium 50 ml @ 100 mls/hr Q24H IVPB Last administered on 07/09/18 16:55; Admin Dose 100 MLS/HR; Start 07/08/18 at 17:30 Thiamine HCl (Vitamin B1) 100 mg DAILY PO Last administered on 07/10/18 08:59; Admin Dose 100 MG; Start 07/09/18 at 16:00 Folic Acid (Folic Acid) 1 mg DAILY PO Last administered on 07/10/18 08:59; Admin Dose 1 MG; Start 07/09/18 at 16:00 Pyridoxine HCl (Vitamin B6) 25 mg DAILY PO Last administered on 07/10/18 08:59; Admin Dose 25 MG; Start 07/09/18 at 17:00 Multivitamins Therapeutic (Theragran) 1 tab DAILY PO Last administered on 07/10/18 08:58; Admin Dose 1 TAB; Start 07/09/18 at 16:00 Chlordiazepoxide (Librium) 25 mg QID PO Last administered on 07/10/18at 12:48; Admin Dose 25 MG; Start 07/09/18 at 17:00; Stop 07/12/18 at 16:59 Morphine Sulfate (morphine) 6 mg Q4H PRN PO SEVERE PAIN LEVEL 7-10; Start 07/09/18 at 16:30 BUFFY FAN Jul 10, 2018 17:05
[2018-07-10] MEDS: CEFTRIAXONE 1 GM/50 ML (PMX) 50 ML IVPB SCH (17:21)
[2018-07-10 19:46] VITALS: BP 112/69; PULSE 108; RESP 19
[2018-07-10] MEDS: PENTOXIFYLLINE (SR) 400 MG TAB PO SCH (20:27)
[2018-07-11 02:00] VITALS: BP 113/62; PULSE 110; RESP 18
[2018-07-11] MEDS: ACETAMINOPHEN 325 MG TAB PO PRN ×2 (02:09→20:19)
[2018-07-11] MEDS: PANTOPRAZOLE 40 MG INJ IV SCH ×2 (05:41→17:01)
[2018-07-11 07:40] VITALS: BP 115/64; PULSE 95; RESP 17
[2018-07-11] MEDS: THIAMINE 100 MG TAB PO SCH (09:14)
[2018-07-11] MEDS: PENTOXIFYLLINE (SR) 400 MG TAB PO SCH ×3 (09:14→20:40)
[2018-07-11] MEDS: MULTIVITAMINS THERAPEUTIC TAB PO SCH (09:14)
[2018-07-11] MEDS: CHLORDIAZEPOXIDE 25 MG CAP PO SCH ×4 (09:14→20:19)
[2018-07-11] MEDS: PYRIDOXINE 50 MG TAB PO SCH (09:14)
[2018-07-11] MEDS: FOLIC ACID 1 MG TAB PO SCH (09:14)
[2018-07-11] MEDS: SUCRALFATE (100 MG/ML) 10ML CUP PO SCH ×4 (09:15→20:18)
[2018-07-11] MEDS ORDERED: POTASSIUM CHLORIDE (SR) 20 MEQ TAB PO STA (09:54)
--- NOTE | 2018-07-11 11:57 | PN ---
Date/Time of Note Date/Time of Note DATE: 07/11/18 TIME: 11:56 Assessment/Plan VTE Prophylaxis Risk score (from Nsg)>0 risk: 1 Pharmacological prophylaxis: NA/contraindicated Pharm contraindication: low risk/ambulating Lines/Catheters IV Catheter Type (from Nrsg): Saline Lock Assessment/Plan Hospital Course 1. Painless jaundice in a known alcoholic 2/2 alcoholic hepatitis AST>>ALT -patient had been drinking all weekend prior to presentation -MRCP and USS show no evidence of obstruction -GI consultation appreciated 2. Incidental concern for acute cholecystitis on MRCP Patient is currently asymptomatic, no clinical evidence of acute cholecystitis gallbladder wall swelling is likely secondary to hepatitis 3. Chronic Alcohol use and abuse -counselled on the need to quit alcohol abuse - to help provide resources 4. Reactive leucocytosis secondary to #1-improving Prophylaxis: Ambulation DC planning: LFTs have continued to increased today, anticipate DC once LFTs stabilize and plateau Result Diagram: 07/11/18 0720 07/11/18 0720 Results 24hrs Laboratory Tests Test 07/11/18 07:20 White Blood Count 19.6 #H Red Blood Count 3.32 L Hemoglobin 11.5 L Hematocrit 33.6 L Mean Corpuscular Volume 101.2 H Mean Corpuscular Hemoglobin 34.6 H Mean Corpuscular Hemoglobin Concent 34.2 Red Cell Distribution Width 15.8 H Platelet Count 336 Mean Platelet Volume 9.9 Immature Granulocytes % 2.200 H Neutrophils % 80.9 H Lymphocytes % 8.2 L Monocytes % 7.8 Eosinophils % 0.4 Basophils % 0.5 Nucleated Red Blood Cells % 0.0 Immature Granulocytes # 0.430 H Neutrophils # 15.9 H Lymphocytes # 1.6 Monocytes # 1.5 H Eosinophils # 0.1 Basophils # 0.1 Nucleated Red Blood Cells # 0.0 Sodium Level 132 L Potassium Level 3.3 L Chloride Level 95 L Carbon Dioxide Level 27 Anion Gap 10 Blood Urea Nitrogen 3 L Creatinine 0.48 L Est Glomerular Filtrat Rate mL/min > 60 Glucose Level 108 Calcium Level 8.1 L Total Bilirubin 14.7 H Direct Bilirubin 12.60 H Indirect Bilirubin 2.1 H Aspartate Amino Transf (AST/SGOT) 95 H Alanine Aminotransferase (ALT/SGPT) 7 L Alkaline Phosphatase 228 H Total Protein 6.7 Albumin 2.8 L Globulin 3.90 H Albumin/Globulin Ratio 0.71 Subjective 24 Hr Interval Summary Constitutional: no complaints Exam/Review of Systems Vital Signs Vitals Vital Signs Date Temp Pulse Resp B/P (MAP) Pulse Ox O2 O2 Flow FiO2 Time Delivery Rate 07/11/18 98.1 95 17 115/64 98 07:40 (81) 07/10/18 Room Air 14:00 Intake and Output 07/10/18 07/10/18 07/11/18 1515:00 23:00 07:00 IntakeIntake Total 520 ml 370 ml 500 ml BalanceBalance 520 ml 370 ml 500 ml Exam Constitutional: alert, oriented Respiratory: clear to auscultation Cardiovascular: regular rate and rhythm Gastrointestinal: soft; No distended Musculoskeletal: nl extremities to inspection Medications Medications Current Medications IV Flush (NS 3 ml) 3 ml PER PROTOCOL IV ; Start 07/08/18 at 16:30 Ondansetron HCl (Zofran Inj) 4 mg Q6H PRN IV NAUSEA AND/OR VOMITING; Start 07/08/18 at 16:30 Pantoprazole (Protonix Iv) 40 mg BID@06,18 IV Last administered on 07/11/18at 05:41; Admin Dose 40 MG; Start 07/08/18 at 18:00 Sucralfate (Carafate Susp) 1 gm QID PO Last administered on 07/11/18at 09:15; Admin Dose 1 GM; Start 07/08/18 at 17:00 Ceftriaxone Sodium 50 ml @ 100 mls/hr Q24H IVPB Last administered on 07/10/18at 17:21; Admin Dose 100 MLS/HR; Start 07/08/18 at 17:30 Thiamine HCl (Vitamin B1) 100 mg DAILY PO Last administered on 07/11/18at 09:14; Admin Dose 100 MG; Start 07/09/18 at 16:00 Folic Acid (Folic Acid) 1 mg DAILY PO Last administered on 07/11/18 09:14; Admin Dose 1 MG; Start 07/09/18 at 16:00 Pyridoxine HCl (Vitamin B6) 25 mg DAILY PO Last administered on 07/11/18 09:14; Admin Dose 25 MG; Start 07/09/18 at 17:00 Multivitamins Therapeutic (Theragran) 1 tab DAILY PO Last administered on 07/11/18at 09:14; Admin Dose 1 TAB; Start 07/09/18 at 16:00 Chlordiazepoxide (Librium) 25 mg QID PO Last administered on 07/11/18at 09:14; Admin Dose 25 MG; Start 07/09/18 at 17:00; Stop 07/12/18 at 16:59 Morphine Sulfate (morphine) 6 mg Q4H PRN PO SEVERE PAIN LEVEL 7-10; Start 07/09/18 at 16:30 Pentoxifylline (Trental) 400 mg TID PO Last administered on 07/11/18at 09:14; Admin Dose 400 MG; Start 07/10/18 at 21:00 Acetaminophen (Tylenol Tab) 650 mg Q6H PRN PO MILD PAIN(1-3)OR ELEVATED TEMP L ast administered on 07/11/18at 02:09; Admin Dose 650 MG; Start 07/11/18 at 02:30 DONOVAN LUNA Jul 11, 2018 11:57
--- NOTE | 2018-07-11 13:35 | PN ---
Date/Time of Note Date/Time of Note DATE: 07/11/18 TIME: 13:32 Assessment/Plan VTE Prophylaxis Risk score (from Nsg)>0 risk: 1 Pharmacological prophylaxis: other (scds) Lines/Catheters IV Catheter Type (from Nrsg): Saline Lock Assessment/Plan Hospital Course Summary Assessment and Plan: Assessment: Query alcoholic hepatitis- given sx of jaundice, poor appetite, fevers, and hepatomegaly - DF 32.2 -Pt states last drink 1 month ago, however labs suggest patient may have been drinking more recently Elevated liver enzymes with direct hyperbilirubinemia Hepatosplenomegaly and hepatic steatosis. Possible infarcts of the posteroi nferior spleen. History of alcohol abuse- x3 bottle of tequila every weekend for at least 1 year -Quit drinking alcohol in May 2018 Poor appetite Leukocytosis, unclear etiology Thickened, edematous appearing gallbladder wall Plan: Continue pentoxifylline Monitor labs Hepatitis panel- neg NOAM, AMA, ASMA- pending Continue current regimen Encourage PO intake d/c planning per hospitalist Continue supportive care Patient seen in collaboration with /Cade Subjective: Course reviewed with nursing staff Patient interviewed and examined All labs, imaging and other results reviewed No over night events, LFT slight trending up daily With an increase in WBC, likely reactive, given no found source of infection or fevers. No c/o n/v or abd pain. pt asking when is he able to go home. Continue to monitor for now. Discussed need to stop drinking. Pt vernalized understanding PHYSICAL EXAMINATION: GENERAL: Alert & oriented x 3, jaundice in no acute distress SKIN: No lesions CARDIOVASCULAR: Heart: Regular rate and rhythm, RESPIRATORY: Lungs clear to auscultation GASTROINTESTINAL AND LIVER: Abdomen: Soft, non tenderness, non-distended, no hernias, no masses, no organomegaly, no ascites, no guarding, no rebound tenderness, normoactive bowel sounds. Rectal: Deferred. EXTREMITIES: No cyanosis, clubbing or edema. Result Diagram: 07/11/18 0720 07/11/18 0720 Results 24hrs Laboratory Tests Test 07/11/18 07:20 White Blood Count 19.6 #H Red Blood Count 3.32 L Hemoglobin 11.5 L Hematocrit 33.6 L Mean Corpuscular Volume 101.2 H Mean Corpuscular Hemoglobin 34.6 H Mean Corpuscular Hemoglobin Concent 34.2 Red Cell Distribution Width 15.8 H Platelet Count 336 Mean Platelet Volume 9.9 Immature Granulocytes % 2.200 H Neutrophils % 80.9 H Lymphocytes % 8.2 L Monocytes % 7.8 Eosinophils % 0.4 Basophils % 0.5 Nucleated Red Blood Cells % 0.0 Immature Granulocytes # 0.430 H Neutrophils # 15.9 H Lymphocytes # 1.6 Monocytes # 1.5 H Eosinophils # 0.1 Basophils # 0.1 Nucleated Red Blood Cells # 0.0 Sodium Level 132 L Potassium Level 3.3 L Chloride Level 95 L Carbon Dioxide Level 27 Anion Gap 10 Blood Urea Nitrogen 3 L Creatinine 0.48 L Est Glomerular Filtrat Rate mL/min > 60 Glucose Level 108 Calcium Level 8.1 L Total Bilirubin 14.7 H Direct Bilirubin 12.60 H Indirect Bilirubin 2.1 H Aspartate Amino Transf (AST/SGOT) 95 H Alanine Aminotransferase (ALT/SGPT) 7 L Alkaline Phosphatase 228 H Total Protein 6.7 Albumin 2.8 L Globulin 3.90 H Albumin/Globulin Ratio 0.71 Exam/Review of Systems Vital Signs Vitals Vital Signs Date Temp Pulse Resp B/P (MAP) Pulse Ox O2 O2 Flow FiO2 Time Delivery Rate 07/11/18 98.1 95 17 115/64 98 07:40 (81) 07/10/18 Room Air 14:00 Intake and Output 07/10/18 07/10/18 07/11/18 1515:00 23:00 07:00 IntakeIntake Total 520 ml 370 ml 500 ml BalanceBalance 520 ml 370 ml 500 ml Medications Medications Current Medications IV Flush (NS 3 ml) 3 ml PER PROTOCOL IV ; Start 07/08/18 at 16:30 Ondansetron HCl (Zofran Inj) 4 mg Q6H PRN IV NAUSEA AND/OR VOMITING; Start 07/08/18 at 16:30 Pantoprazole (Protonix Iv) 40 mg BID@06,18 IV Last administered on 07/11/18at 05:41; Admin Dose 40 MG; Start 07/08/18 at 18:00 Sucralfate (Carafate Susp) 1 gm QID PO Last administered on 07/11/18at 12:12; Admin Dose 1 GM; Start 07/08/18 at 17:00 Ceftriaxone Sodium 50 ml @ 100 mls/hr Q24H IVPB Last administered on 07/10/18 17:21; Admin Dose 100 MLS/HR; Start 07/08/18 at 17:30 Thiamine HCl (Vitamin B1) 100 mg DAILY PO Last administered on 07/11/18 09:14; Admin Dose 100 MG; Start 07/09/18 at 16:00 Folic Acid (Folic Acid) 1 mg DAILY PO Last administered on 07/11/18 09:14; Admin Dose 1 MG; Start 07/09/18 at 16:00 Pyridoxine HCl (Vitamin B6) 25 mg DAILY PO Last administered on 07/11/18 09:14; Admin Dose 25 MG; Start 07/09/18 at 17:00 Multivitamins Therapeutic (Theragran) 1 tab DAILY PO Last administered on 07/11/18 09:14; Admin Dose 1 TAB; Start 07/09/18 at 16:00 Chlordiazepoxide (Librium) 25 mg QID PO Last administered on 07/11/18at 12:12; Admin Dose 25 MG; Start 07/09/18 at 17:00; Stop 07/12/18 at 16:59 Morphine Sulfate (morphine) 6 mg Q4H PRN PO SEVERE PAIN LEVEL 7-10; Start 06/25 11/10 at 16:30 Pentoxifylline (Trental) 400 mg TID PO Last administered on 07/11/18 12:12; Admin Dose 400 MG; Start 07/10/18 at 21:00 Acetaminophen (Tylenol Tab) 650 mg Q6H PRN PO MILD PAIN(1-3)OR ELEVATED TEMP Last administered on 07/11/18 02:09; Admin Dose 650 MG; Start 07/11/18 at 02:30 BUFFY FAN Jul 11, 2018 13:35
[2018-07-11 14:49] VITALS: BP 124/74; PULSE 96; RESP 18
[2018-07-11] MEDS: CEFTRIAXONE 1 GM/50 ML (PMX) 50 ML IVPB SCH (16:54)
[2018-07-11 20:00] VITALS: BP 101/55; PULSE 97; RESP 18
[2018-07-12 02:00] VITALS: BP 85/48; PULSE 65; RESP 18; RESP 24
[2018-07-12 03:02] VITALS: BP 107/62; PULSE 55
[2018-07-12 04:36] VITALS: BP 108/63; PULSE 98; RESP 27
[2018-07-12] MEDS: PANTOPRAZOLE 40 MG INJ IV SCH (06:23)
[2018-07-12 08:00] VITALS: BP 113/65; PULSE 100; RESP 18
[2018-07-12] MEDS: MULTIVITAMINS THERAPEUTIC TAB PO SCH (08:21)
[2018-07-12] MEDS: SUCRALFATE (100 MG/ML) 10ML CUP PO SCH (08:22)
[2018-07-12] MEDS: PENTOXIFYLLINE (SR) 400 MG TAB PO SCH (08:22)
[2018-07-12] MEDS: PYRIDOXINE 50 MG TAB PO SCH (08:22)
[2018-07-12] MEDS: THIAMINE 100 MG TAB PO SCH (08:23)
[2018-07-12] MEDS: FOLIC ACID 1 MG TAB PO SCH (08:23)
[2018-07-12] MEDS: CHLORDIAZEPOXIDE 25 MG CAP PO SCH (08:24)
--- NOTE | 2018-07-12 10:24 | PDOCDIS ---
Discharge Instructions CONDITION [id number] Patient Condition: [id number] Good HOME CARE INSTRUCTIONS: [id number] Diet Instructions: [id number] Regular ACTIVITY: [id number] Activity Restrictions: [id number] No Restrictions FOLLOW UP/APPOINTMENTS Follow-up Plan FOLLOW UP WITH YOUR PCP IN 1-2 WEEKS DONOVAN LUNA Jul 12, 2018 10:24
[2018-07-12] MEDS ORDERED: PENT400T9 PO (10:27)
--- NOTE | 2018-07-12 12:26 | DS ---
Date/Time of Note Date/Time of Note DATE: 07/12/18 TIME: 12:24 Discharge Summary Admission/Discharge Info Admit Date/Time Jul 08, 2018 at 15:15 Discharge Date/Time July 12, 2018 Discharge Diagnosis 1. Painless jaundice in a known alcoholic 2/2 alcoholic hepatitis AST>>ALT -patient had been drinking all weekend prior to presentation -MRCP and USS show no evidence of obstruction -NOAM and hepatitis panel are negative -GI consultation appreciated -DC with Trental 2. Incidental concern for acute cholecystitis on MRCP Patient is currently asymptomatic, no clinical evidence of acute cholecystitis gallbladder wall swelling is likely secondary to hepatitis 3. Chronic Alcohol use and abuse -counselled on the need to quit alcohol abuse - to help provide resources 4. Reactive leucocytosis secondary to #1-improving Patient Condition: Good Hospital Course Patient is a 42-year-old male who presented with painless jaundice and transaminitis, workup including MRCP, ultrasound, and laboratory analysis indicated alcohol hepatitis. Patient was seen by GI and was started on Trental. Patient's condition did stabilize, patient was stable for DC, on the day of discharge patient's vitals, labs of exam are stable patient has no acute com plaints questions are answered. Alcohol cessation was advised. Home Meds Active Scripts Pentoxifylline* (Pentoxifylline*) 400 Mg Tablet.sa, 400 MG PO TID for 25 Days, #75 TAB Prov:DONOVAN LUNA 07/12/18 Follow-up Plan FOLLOW UP WITH YOUR PCP IN 1-2 WEEKS Primary Care Provider Care Physician No Primary Time spent on discharge: > 30 minutes DONOVAN LUNA Jul 12, 2018 12:26
--- NOTE | 2018-07-12 12:51 | PN ---
Date/Time of Note Date/Time of Note DATE: 07/12/18 TIME: 12:45 Assessment/Plan VTE Prophylaxis Risk score (from Ns)>0 risk: 1 SCD applied (from Ns): Yes Pharmacological prophylaxis: NA/contraindicated Pharm contraindication: liver dx Lines/Catheters IV [facility] Peripheral IV Assessment/Plan Assessment/Plan Assessment: Query alcoholic hepatitis- given sx of jaundice, poor appetite, fevers, and hepatomegaly - DF 32.2 -Pt states last drink 1 month ago, however labs suggest patient may have been drinking more recently Elevated liver enzymes with direct hyperbilirubinemia Hepatosplenomegaly and hepatic steatosis. Possible infarcts of the posteroinferior spleen. History of alcohol abuse- x3 bottle of tequila every weekend for at least 1 year -Quit drinking alcohol in May 2018 Poor appetite Leukocytosis, unclear etiology Thickened, edematous appearing gallbladder wall Positive smooth muscle antibodies -rule out autoimmune hepatitis Plan: Continue pentoxifylline Monitor labs Hepatitis panel- neg ASMA positive -recommend liver biopsy as an outpatient Continue current regimen d/c planning per hospitalist Continue supportive care Patient seen in collaboration with /Cade Subjective: Course reviewed with nursing staff Patient interviewed and examined All labs, imaging and other results reviewed Patient is improving. White blood count is trending down. Smooth muscle antibodies came back positive. Recommend liver biopsy as an outpatient. No complaints of abdominal pain, nausea or vomiting. Patient is tolerating diet well. Plan to discharge home. . PHYSICAL EXAMINATION: GENERAL: Alert & oriented x 3, jaundice in no acute distress SKIN: No lesions. Icteric sclera CARDIOVASCULAR: Heart: Regular rate and rhythm, RESPIRATORY: Lungs clear to auscultation GASTROINTESTINAL AND LIVER: Abdomen: Soft, non tenderness, non-distended, no hernias, no masses, no organomegaly, no ascites, no guarding, no rebound tenderness, normoactive bowel sounds. Rectal: Deferred. EXTREMITIES: No cyanosis, clubbing or edema. Result Diagram: 07/12/1860407/12/18604 Results 24hrs Laboratory Tests Test 07/12/18 06:05 White Blood Count 14.7 #H Red Blood Count 3.31 L Hemoglobin 11.4 L Hematocrit 33.4 L Mean Corpuscular Volume 100.9 Mean Corpuscular Hemoglobin 34.4 H Mean Corpuscular Hemoglobin Concent 34.1 Red Cell Distribution Width 15.9 H Platelet Count 319 Mean Platelet Volume 9.4 Immature Granulocytes % 2.700 H Neutrophils % 80.1 H Lymphocytes % 7.4 L Monocytes % 8.3 Eosinophils % 1.0 Basophils % 0.5 Nucleated Red Blood Cells % 0.0 Immature Granulocytes # 0.400 H Neutrophils # 11.8 H Lymphocytes # 1.1 Monocytes # 1.2 H Eosinophils # 0.1 Basophils # 0.1 Nucleated Red Blood Cells # 0.0 Sodium Level 135 Potassium Level 3.8 Chloride Level 99 Carbon Dioxide Level 26 Anion Gap 10 Blood Urea Nitrogen 3 L Creatinine 0.49 L Est Glomerular Filtrat Rate mL/min > 60 Glucose Level 119 Calcium Level 8.0 L CC: DOREEN YORK MD ; Exam/Review of Systems Vital Signs Vitals Vital Signs Date Temp Pulse Resp B/P (MAP) Pulse Ox O2 O2 Flow FiO2 Time Delivery Rate 07/12/18 99.0 100 18 113/65 98 Room Air 08:00 (81) Intake and Output 07/11/18 07/11/18 07/12/18 1515:00 23:00 07:00 IntakeIntake Total 480 ml 420 ml BalanceBalance 480 ml 420 ml Medications Medications Current Medications IV Flush (NS 3 ml) 3 ml PER PROTOCOL IV ; Start 07/08/18 at 16:30 Ondansetron HCl (Zofran Inj) 4 mg Q6H PRN IV NAUSEA AND/OR VOMITING; Start 07/08/18 at 16:30 Pantoprazole (Protonix Iv) 40 mg BID@06,18 IV Last administered on 07/12/18at 06:23; Admin Dose 40 MG; Start 07/08/18 at 18:00 Sucralfate (Carafate Susp) 1 gm QID PO Last administered on 07/12/18at 08:22; Admin Dose 1 GM; Start 07/08/18 at 17:00 Ceftriaxone Sodium 50 ml @ 100 mls/hr Q24H IVPB Last administered on 07/11/18at 16:54; Admin Dose 100 MLS/HR; Start 07/08/18 at 17:30 Thiamine HCl (Vitamin B1) 100 mg DAILY PO Last administered on 07/12/18at 08:23; Admin Dose 100 MG; Start 07/09/18 at 16:00 Folic Acid (Folic Acid) 1 mg DAILY PO Last administered on 07/12/18 08:23; Admin Dose 1 MG; Start 07/09/18 at 16:00 Pyridoxine HCl (Vitamin B6) 25 mg DAILY PO Last administered on 07/12/18 08:22; Admin Dose 25 MG; Start 07/09/18 at 17:00 Multivitamins Therapeutic (Theragran) 1 tab DAILY PO Last administered on 07/12/18at 08:21; Admin Dose 1 TAB; Start 07/09/18 at 16:00 Chlordiazepoxide (Librium) 25 mg QID PO Last administered on 07/12/18at 08:24; Admin Dose 25 MG; Start 07/09/18 at 17:00; Stop 07/12/18 at 16:59 Morphine Sulfate (morphine) 6 mg Q4H PRN PO SEVERE PAIN LEVEL 7-10; Start 07/09/18 at 16:30 Pentoxifylline (Trental) 400 mg TID PO Last administered on 07/12/18at 08:22; Admin Dose 400 MG; Start 07/10/18 at 21:00 Acetaminophen (Tylenol Tab) 650 mg Q6H PRN PO MILD PAIN(1-3)OR ELEVATED TEMP [place] [facility] administered on 07/11/18at 20:19; Admin Dose 650 MG; Start 07/11/18 at 02:30 KRAIG REESE NP Jul 12, 2018 12:50
[2018-07-23] MEDS ORDERED: LEVO750T8 PO (13:20)
== END 2018-07-12 12:50 | disposition home or self-care (01) | DRG 433 ==
LOC: FTE 11:21 → 5EC 15:15
PROVIDERS: ADMIT Internal Medicine; ATTEND Internal Medicine
DX: K70.10 Alcoholic hepatitis without ascites (principal); R17 Unspecified jaundice; K81.0 Acute cholecystitis; F10.10 Alcohol abuse, uncomplicated; R16.0 Hepatomegaly, not elsewhere classified; K76.0 Fatty (change of) liver, not elsewhere classified; D72.829 Elevated white blood cell count, unspecified
CPT/HCPCS: 36415; 74181; 76705; 80048; 80053; 81001; 83036; 83690; 83735; 85025; 85610; 86038; 86255; 86704; 86709; 86803; 87040; 87340; C9113; J0696; J7030

== ENCOUNTER 2018-07-31 08:38 | Inpatient (IN) | payer MEDICAID ==
[~2018-07-31] VITALS: Ht 167.6 cm; Wt 94.9 kg
[~2018-07-31 08:38] MED LIST: LEVO750T8 PO; PENT400T9 PO
[2018-07-31] MEDS ORDERED: PIPER-TAZO 3.375 GM IV (PMX) 100 ML IVPB STA (08:58)
--- NOTE | 2018-07-31 10:29 | ERD ---
ER Documentation Chief Complaint Chief Complaint HERE YESTERDAY, FORE RECHECK PNEUMONIA? FEELS GOOD HPI 42-year-old male presents the emergency department complaining of abdominal pain and swelling. Patient is a difficult historian and seems to have little insight into his presentation. Yesterday, patient was evaluated with evidence of significant leg worsening renal failure and liver failure. An elevated white blood cell count as well and a questionable pneumonia. He was started on antibiotics but left AGAINST MEDICAL ADVICE. He department today now stating he wants to be admitted to the hospital. He has no worsening change in his symptoms. He reports abdominal swelling with no specific abdominal pain. He reports no melena or hematochezia. He reports no fevers or chills. He reports no cough. ROS All systems reviewed and are negative except as per history of present illness. Medications Home Meds Active Scripts Pentoxifylline* (Pentoxifylline*) 400 Mg Tablet.sa, 400 MG PO TID for 25 Days, #75 TAB Prov:DONOVAN LUNA 07/12/18 Discontinued Scripts Levofloxacin* (Levofloxacin*) 750 Mg Tablet, 750 MG PO DAILY for 5 Days, #5 TAB Prov:DONOVAN LUNA 07/23/18 Allergies Allergies: Coded Allergies: No Known Allergy (Unverified , 07/08/18) PMhx/Soc History of Surgery: No Anesthesia Reaction: No Hx Neurological Disorder: No Hx Respiratory Disorders: No Hx Cardiac Disorders: No Hx Psychiatric Problems: Yes (ETOH ABUSE) Hx Miscellaneous Medical Probl: Yes (ABDOMINAL PAIN AND SORE THROAT X 2 DAYS) Hx Alcohol Use: Yes (PER [place] THE LAST TIME HE DRANK ALCOHOL WAS 2018, HEAVY DRINKER BEFORE) Hx Substance Use: No Hx Tobacco Use: No Smoking Status: Never smoker FmHx Noncontributory for chief complaint Physical Exam Vitals Vital Signs Date Temp Pulse Resp B/P (MAP) Pulse Ox O2 O2 Flow FiO2 Time Delivery Rate 07/31/18 97.0 110 20 157/80 98 08:44 (105) Physical Exam GENERAL: Ill-appearing male. HEENT: Pupils equal, round, and reactive to light. EOMI. There is scleral icterus. NECK: C-spine is soft and supple, there is no meningismus. There is no cervical lymphadenopathy. LUNGS: Occasional crackle at the base. there are no rales, wheezes or rhonchi. HEART: Regular rate and rhythm, no murmurs, clicks, rubs or gallops. ABDOMEN: Soft, distended with a fluid wave. No rebound or guarding. No peritoneal signs. EXTREMITIES: 2+ edema both lower extremities with no cyanosis or clubbing. NEURO: The patient moves all four extremities with 5/5 strength. Cranial nerves II - XII are intact. Normal gait. Alert and oriented SKIN: There is no apparent rash or petechiae. HEME/LYMPHATIC: There is no evidence of excessive bruising or lymphedema. PSYCHIATRIC: The patient does not appear anxious or depressed. Result Diagram: 07/31/18 0908 07/31/18 0908 Results 24 hrs Laboratory Tests Test 07/31/18 09:08 White Blood Count 27.5 10^3/ul Red Blood Count 3.50 10^6/ul Hemoglobin 12.1 g/dl Hematocrit 35.6 % Mean Corpuscular Volume 101.7 fl Mean Corpuscular Hemoglobin 34.6 pg Mean Corpuscular Hemoglobin Concent 34.0 g/dl Red Cell Distribution Width 16.1 % Platelet Count 260 10^3/UL Mean Platelet Volume 9.2 fl Immature Granulocytes % 4.500 % Neutrophils % % Lymphocytes % % Monocytes % % Eosinophils % % Basophils % % Nucleated Red Blood Cells % 0.0 /100WBC Immature Granulocytes # 1.250 10^3/ul Neutrophils # 10^3/ul Lymphocytes # 10^3/ul Monocytes # 10^3/ul Eosinophils # 10^3/ul Basophils # 10^3/ul Nucleated Red Blood Cells # 10^3/ul Pathologist Review (Hematology) YES-PATH TO CONFIRM Prothrombin Time 27.7 Sec Prothrombin Time Ratio 2.2 INR International Normalized Ratio 2.58 Activated Partial Thromboplast Time 54.4 Sec Urine Color MAURILIO Urine Clarity SLIGHTLY CLOUDY Urine pH 5.0 Urine Specific [place] 1.014 Urine Ketones NEGATIVE mg/dL Urine Nitrite NEGATIVE mg/dL Urine Bilirubin 2+ mg/dL Urine Urobilinogen 2+ mg/dL Urine Leukocyte Esterase NEGATIVE Blayne/ul Urine Microscopic RBC 0 /HPF Urine Microscopic WBC 3 /HPF Urine Mucus FEW /HPF Urine Hemoglobin NEGATIVE mg/dL Urine Glucose NEGATIVE mg/dL Urine Total Protein NEGATIVE mg/dl Sodium Level 134 mmol/L Potassium Level 4.1 mmol/L Chloride Level 102 mmol/L Carbon Dioxide Level 21 mmol/L Anion Gap 11 Blood Urea Nitrogen 31 mg/dl Creatinine 2.90 mg/dl Est Glomerular Filtrat Rate mL/min 24 mL/min Glucose Level 93 mg/dl Calcium Level 8.1 mg/dl Total Bilirubin 18.6 mg/dl Direct Bilirubin 16.60 mg/dl Indirect Bilirubin 2.0 mg/dl Aspartate Amino Transf (AST/SGOT) 108 IU/L Alanine Aminotransferase (ALT/SGPT) 14 IU/L Alkaline Phosphatase 259 IU/L Total Protein 6.5 g/dl Albumin 2.5 g/dl Globulin 4.00 g/dl Albumin/Globulin Ratio 0.62 Lipase 74 U/L Current Medications Medications Dose Sig/Lars Start Time Status Last (Trade) Ordered Route PRN Stop Time Admin Dose Reason Admin Piperacillin 100 ml @ ONCE STAT 07/31/18 DC 07/31/18 Sod/ 200 mls/hr IVPB 08:58 07/31/18 09:18 Tazobactam 09:27 Sod Procedures/MDM Patient was taken to a room, seen and evaluated. Comfort measures were initiated. Diagnostic tests were ordered and reviewed. 3 LEAD RHYTHM STRIP: Sinus tachycardia EK lead EKG reviewed by myself: Sinus tachycardia Left axis deviation No ST elevation, depression, or T wave inversion Impression: Nonspecific EKG RADIOLOGY: Reviewed with the radiologist CONSULTATION: Hospitalist was notified for admission REEVALUATION: 1025: Patient remained hemodynamically stable. MEDICAL DECISION MAKIN-year-old male presents the emergency department with acutely worsening renal function and liver function. He has an elevated white blood cell count of uncertain etiology. Imaging studies do not seem to indicate pneumonia at this time. Urinalysis is pending to check for urinary tract infection. I have ordered a paracentesis to check for SBP. Empiric antibiotics have been provided for sources of sepsis including the consideration that this is intra-abdominal. Although he may be septic with an elevated white blood cell count, he is fluid overloaded and therefore I have not ordered a significant fluid bolus for sepsis. Of concern is the patient's significant worsening renal failure and liver failure with an elevated bilirubin and renal function. Patient will be admitted to the hospital for further observation, management and care. Departure Diagnosis: Primary Impression: Acute kidney injury Additional Impressions: Alcoholic hepatitis with ascites Leukocytosis Peripheral edema Condition: Serious CROW DANIELS Jul 31, 2018 10:29
--- NOTE | 2018-07-31 11:01 | HP ---
Date/Time of Note Date/Time of Note DATE: 07/31/18 TIME: 10:56 Assessment/Plan VTE Prophylaxis Pharmacological prophylaxis: NA/contraindicated Pharm contraindication: blood coag disorder Lines/Catheters [facility] Saline Lock Assessment/Plan Hospital Course 42-year-old known alcoholic who presents with lower extremity swelling, reduced urine output, worsening jaundice and abdominal pain managed as follows 1. Severe sepsis versus SIRS 2. Rule out SBP 3. Rule out UTI 4. Acute renal insufficiency highly concerning for hepatorenal syndrome 5. Chronic alcoholic liver failure, worsening with worsened hyperbilirubinemia * Chronic coagulopathy * chronic megaloblastic anemia * Generalized anasarca * severe jaundice 6. Chronic alcohol abuse 7. 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, patient has been recommended for outpatient liver biopsy Plan 1. admit tele 2. Follow-up paracentesis to look for SBP, fluid analysis and cultures empiric abx and albumin therapy 3. Nephrology and GI consult 4. Renally dose all meds and avoid nephro toxic drugs 5. blood and urine cultures, trend labs 6. Supportive care 7. Poor prognosis 8. Further interventions per course Result Diagram: 07/31/18 0908 07/31/18 0908 Results 24hrs Laboratory Tests Test 07/31/18 09:08 White Blood Count 27.5 H Red Blood Count 3.50 L Hemoglobin 12.1 L Hematocrit 35.6 L Mean Corpuscular Volume 101.7 H Mean Corpuscular Hemoglobin 34.6 H Mean Corpuscular Hemoglobin Concent 34.0 Red Cell Distribution Width 16.1 H Platelet Count 260 Mean Platelet Volume 9.2 Immature Granulocytes % 4.500 H Neutrophils % Segmented Neutrophils % (Manual) 71 Band Neutrophils % (Manual) 19 H Lymphocytes % Lymphocytes % (Manual) 1 L Monocytes % Monocytes % (Manual) 8 Eosinophils % Eosinophils % (Manual) 1 Basophils % Nucleated Red Blood Cells % 0.0 Immature Granulocytes # 1.250 H Neutrophils # Neutrophils # (Manual) 21.0 H Band Neutrophils # 5.2 H Lymphocytes (Manual) 0.2 L Lymphocytes # Monocytes # Monocytes # (Manual) 2.2 H Eosinophils # Basophils # Nucleated Red Blood Cells # Pathologist Review (Hematology) YES-PATH TO CONFIRM Platelet Estimate NORMAL Polychromasia 1+ Hypochromasia 1+ Anisocytosis 2+ Macrocytosis 2+ Prothrombin Time 27.7 H Prothrombin Time Ratio 2.2 INR International Normalized Ratio 2.58 Activated Partial Thromboplast Time 54.4 H Urine Color MAURILIO Urine Clarity SLIGHTLY CLOUDY A Urine pH 5.0 Urine Specific [place] 1.014 Urine Ketones NEGATIVE Urine Nitrite NEGATIVE Urine Bilirubin 2+ H Urine Urobilinogen 2+ H Urine Leukocyte Esterase NEGATIVE Urine Microscopic RBC 0 Urine Microscopic WBC 3 Urine Mucus FEW A Urine Hemoglobin NEGATIVE Urine Glucose NEGATIVE Urine Total Protein NEGATIVE Sodium Level 134 L Potassium Level 4.1 Chloride Level 102 Carbon Dioxide Level 21 Anion Gap 11 Blood Urea Nitrogen 31 H Creatinine 2.90 H Est Glomerular Filtrat Rate mL/min 24 L Glucose Level 93 Calcium Level 8.1 L Total Bilirubin 18.6 H Direct Bilirubin 16.60 *H Indirect Bilirubin 2.0 H Aspartate Amino Transf (AST/SGOT) 108 H Alanine Aminotransferase (ALT/SGPT) 14 Alkaline Phosphatase 259 H Total Protein 6.5 Albumin 2.5 L Globulin 4.00 H Albumin/Globulin Ratio 0.62 Lipase 74 HPI/ROS Admit Date/Time Admit Date/Time Hx of Present Illness 42-year-old male who was first admitted to our service a few months ago when he had presented with painless jaundice and was managed at that time for acute hepatitis thought to be secondary to alcohol use. He came back to the emergency room yesterday with lower extremity swelling and was found to have renal failure as well as an elevated white blood cell count. He was given antibiotics and recommended for admission but patient left the due to social reasons and he returns today requesting to be admitted. When asked about abd pain, he does r eport some abd sorenes and distention. He has also noted significant LE swelling and reduced urine output. He denies fever and SOB. He feels his jaundice has gotten worse. He states he has not drank alcohol since his last admission. He has had no fevers, but he has had abdominal distention and ultrasound is consistent with hepatomegaly, thickened gallbladder wall. Is found to be in acute renal failure as well as with worsened hyperbilirubinemia and is being admitted for management of his renal failure. . ROS 12 point review if systems was done and pertinent findings are as noted. PMH/Family/Social Past Medical History * chronic alcoholic cirhosis * s/p recent alcoholic hepatitis r/o autoimmune component Coded Allergies: No Known Allergy (Unverified , 07/08/18) Family History Significant Family History: no pertinent family hx Social History Alcohol Use: sober (?[id number]) Smoking Status: Never smoker Drug Use: none Exam/Review of Systems Vital Signs Vitals Vital Signs Date Temp Pulse Resp B/P (MAP) Pulse Ox O2 O2 Flow FiO2 Time Delivery Rate 07/31/18 97.0 110 20 157/80 98 08:44 (105) Exam Exam General: A&O x3, answering questions appropriately, jaundiced+++, generalized anasarca HEENT: NC/ AT. PERRL. EOM intact, + scleral icterus Neck: supple CVS: S1, S2, RRR. no murmurs. no pain on chest wall palpation Lungs: CTA b/l. no wheezing or rhonchi, dimished breath sounds Abd: soft, nontender, +BS, protuberant, but not tense Ext: moving all extremities, edema ++ up to abdomen skin: jaundice Additional Comments PROCEDURE: XR Chest. CLINICAL INDICATION: Chest pain TECHNIQUE: Single portable view of the chest was obtained COMPARISON: None FINDINGS: The heart and mediastinum are within normal limits. There are mild bibasilar atelectatic changes. The lungs are otherwise clear. There is a possible small left pleural effusion. There is no pneumothorax. RPTAT: AA IMPRESSION: Mild bibasilar atelectatic changes. Possible small left pleural effusion. .Ihsan Bonilla MD, MD Date Time Electronically viewed and signed by .Ihsan Bonilla MD, MD on 07/31/2018 09:29 .S/ CC: CROW DANIELS [id number] PROCEDURE: ULTRASOUND LIMITED ABDOMEN CLINICAL INDICATION: 42-year-old male with abdominal pain. TECHNIQUE: Multiple sonographic of the right upper quadrant of the abdomen were obtained. The images were reviewed on a PACS workstation. COMPARISON: Right upper quadrant ultrasound July 23, 2018. FINDINGS: The pancreas is not well visualized secondary to overlying bowel gas. The liver displays diffuse increased echogenicity. The liver measures 20.9 cm in length. No evidence of intrahepatic biliary ductal dilatation is seen. The portal and hepatic veins are unremarkable. The gallbladder is without evidence for shadowing stones. The gallbladder wall is diffusely thickened measuring 5.9 mm. The common bile duct measures 4.3 mm and is not dilated. The right kidney displays normal echogenicity. The right kidney measures 13.9 cm in maximal length. No caliectasis or hydronephrosis is seen. There is mild free fluid identified within the right upper quadrant. IMPRESSION: 1. Hepatomegaly with steatosis. 2. Diffusely thickened gallbladder wall. 3. Mild free fluid. .Venkat Ramsay MD, MD Date Time Electronically viewed and signed by .Venkat Ramsay MD, MD on 07/31/2018 09:33 .M/ CC: CROW DANIELS [id number] JOSH LOREDO Jul 31, 2018 11:01
--- NOTE | 2018-07-31 14:30 | NUR ---
RN NOTES PT. WAS RCVD FROM ER ALERT AND ORIENTED ABLE TO MAKE NEEDS KNOWN. BODY ASSESSMENT WAS DONE WITH CN SHERRY. GENERALIZED JAUNDICE NOTED AND PITTING EDEMA ON BOTH LOWER EXT. SKIN INTACT, ONLY ABRASION ON THE RT ELBOW.
[2018-07-31 14:39] VITALS: PULSE 103
[2018-07-31 14:44] VITALS: BP 133/72; PULSE 100; RESP 18
[2018-07-31 14:49] VITALS: Ht 167.6 cm; Wt 94.9 kg
[2018-07-31] MEDS: ALBUMIN HUMAN 25% 100 ML IV SCH (16:03)
[2018-07-31 16:09] VITALS: PULSE 100
[2018-07-31 16:30] VITALS: BP 135/77; PULSE 101; RESP 18
[2018-07-31] MEDS: CEFTAZIDIME 2GM/50 ML (PMX) 50 ML IVPB SCH (18:08)
--- NOTE | 2018-07-31 18:32 | NUR ---
EOSS PT. IS ALERT AND ORIENTED, CALL LIGHT W/IN REACH. NO SOB OR DISTRESS NOTED. S/E BY DR. JACOBSEN. KEPT CLEAN AND DRY. WILL CONTINUE TO MONITOR.
--- NOTE | 2018-07-31 18:41 | CONS ---
DATE OF ADMISSION: 07/31/2018 DATE OF CONSULTATION: TYPE OF CONSULTATION: Nephrology. REASON FOR CONSULTATION: Acute kidney injury. PHYSICIAN REQUESTING CONSULT: Josh Loredo MD HISTORY OF PRESENT ILLNESS: This is a 42-year-old male with a past medical history of acute hepatiti s secondary to alcohol use diagnosed approximately 2 months ago who presents to the [facility] Emergency Room with complaints of lower extremity swelling. The patient was in [facility] ency Room yesterday and was found to have acute kidney injury with elevated creatinine and white coun t. The patient was given antibiotics and was recommended to come into the hospital for admission, bu t the patient was unable to and as a result left. [facility] of sore throat for the last 2 days. He has had no fevers. The patient upon arriv al to the emergency room had laboratory data checked which showed a white count 27.5, hemoglobin 12.1 , BUN 31, creatinine 2.90, total bilirubin 18.6, direct bilirubin is 16.6. In the emergency room, th e patient was given IV antibiotics, started on IV albumin and admitted to telemetry for evaluation. In terms of patient's renal history, the patient has a normal baseline creatinine and renal function. Yesterday, the patient was noted to have a creatinine of 2.6 mg/dL, which is increased to 2.9 mg/dL . The patient states that he has been having normal urinary output. He described his urine as dark. He denies any hemoptysis, hematemesis, hematochezia or any rashes. PAST MEDICAL HISTORY: As stated above, history of alcohol use, history of acute hepatitis, history o f fatty liver. FAMILY HISTORY: No family history of kidney disease. SOCIAL HISTORY: Positive for heavy alcohol use. No tobacco use. MEDICATIONS: Have been reviewed. REVIEW OF SYSTEMS: A 14-point review of systems conducted. Pertinent positives stated in HPI, other jackman negative. PHYSICAL EXAMINATION: VITAL SIGNS: Blood pressure is 135/77, respiration 18, pulse 101, temperature 98.7. HEENT: Head is normocephalic. The sclerae are positive for icterus, jaundice. NECK: Supple. HEART: Regular rate. ABDOMEN: Soft, nontender to palpation. EXTREMITIES: Negative for clubbing, cyanosis. Positive edema. DERMATOLOGIC: The patient is jaundiced. NEUROLOGIC: No focal deficits. LABORATORY DATA: Show a sodium 134, potassium 4.1, BUN 31, creatinine 2.90. Direct bilirubin 16.6, total bilirubin 18.6. White count 27.5, hemoglobin 12.1, platelet count is 260. ASSESSMENT AND PLAN: 1. Nonoliguric acute kidney injury with previously normal baseline creatinine. Etiology of acute ki dney injury is concerning for hepatorenal syndrome and possibly due to spontaneous bacterial peritoni tis versus sepsis. Plan at this point is to do a full evaluation as diagnosis of hepatorenal syndrom e is one of exclusion. Plan is to check UA with microanalysis, check urine electrolytes, calculate a FENa. We will evaluate the urine under microscopy to rule out acute tubular necrosis. We will chec k a renal ultrasound to rule out obstruction. We will recommend a volume expansion with IV albumin. Continue antibiotic therapy. Monitor I's and O's closely. If renal function does not improve in e course of 48 hours despite adequate volume expansion, we would consider starting the patient on oct reotide and midodrine. 2. Hyponatremia secondary to acute injury causing decreased free water excretion. Continue to monit or. Limit free water intake. 3. Anemia. Monitor hemoglobin and hematocrit levels. 4. Mineral bone disorder. Monitor calcium and phosphorus levels. 5. Acute liver failure secondary to possible acute hepatitis. The patient is currently decompensate d with lower extremity edema, ascites. Plan is to continue medical management. We will check an INR . Consider GI evaluation. Consider giving Lactulose and rifaximin to avoid encephalopathy. Monitor closely. 6. Sepsis. Possible spontaneous bacterial peritonitis. Continue current medical management. Yonatan nue antibiotic therapy. We will consider therapeutic paracentesis and diagnostic paracentesis. Foll ow up cultures. Thank you, Dr. Loredo, for this interesting consult. It will be a pleasure to follow the patient with karishma root throughout the hospital course. Dictated By: DIONY JACOBSEN DO NR/NTS Conf#: [id number] DID#: [id number] CC: JOSH LOREDO MD;*EndCC*
[2018-07-31 19:50] VITALS: BP 139/84; PULSE 112; RESP 18
[2018-07-31 20:00] VITALS: PULSE 106
[2018-08-01] VITALS (11 sets, daily range): BP systolic 117–143; BP diastolic 65–77; PULSE 65–112; RESP 18–20
[2018-08-01] MEDS: CEFTAZIDIME 2GM/50 ML (PMX) 50 ML IVPB SCH ×3 (00:50→21:23)
[2018-08-01] MEDS: ALBUMIN HUMAN 25% 100 ML IV SCH ×4 (00:50→23:29)
[2018-08-01] MEDS ORDERED: ALBUMIN HUMAN 25% 100 ML IV SCH ×2 (09:00)
--- NOTE | 2018-08-01 09:01 | PN ---
Date/Time of Note Date/Time of Note DATE: 08/01/18 TIME: 08:56 Assessment/Plan VTE Prophylaxis Risk score (from Nsg)>0 risk: 2 Pharmacological prophylaxis: NA/contraindicated Pharm contraindication: thrombocytopenia Lines/Catheters IV Catheter Type (from Nrsg): Saline Lock Assessment/Plan Hospital Course 42-year-old known alcoholic who presents with lower extremity swelling, reduced urine output, worsening jaundice and abdominal pain managed as follows 1. Severe sepsis versus SIRS -unfortunately unable to get ascitic fluid to eval for SBP -f/u blood and urine cultures -continue abx 2. Rule out SBP 3. Rule out UTI 4. Acute renal insufficiency highly concerning for hepatorenal syndrome -appreciate nephrology input, renal function worse today -continue to follow recommendations 5. Chronic alcoholic liver failure, worsening with worsened hyperbilirubinemia * Chronic coagulopathy * chronic megaloblastic anemia * Generalized anasarca * severe jaundice 6. Chronic alcohol abuse -patient states no drink since 06/11 -continue to re-inforce cessation 7. 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, patient has been recommended for outpatient liver biopsy Result Diagram: 08/01/18 0535 08/01/18 0535 Results 24hrs Laboratory Tests Test 07/31/18 09:07 07/31/18 09:08 07/31/18 18:42 08/01/18 05:35 Urine Random < 13 L Sodium White Blood 27.5 H 22.2 H Count Red Blood Count 3.50 L 2.87 L Hemoglobin 12.1 L 10.2 L Hematocrit 35.6 L 28.4 #L Mean Corpuscular 101.7 H 99.0 Volume Mean Corpuscular 34.6 H 35.5 H Hemoglobin Mean Corpuscular 34.0 35.9 Hemoglobin Leslee nt Red Cell 16.1 H 15.9 H Distribution Width Platelet Count 260 197 # Mean Platelet 9.2 9.1 Volume Immature 4.500 H 4.400 H Granulocytes % Neutrophils % Segmented 71 83 H Neutrophils % (Manual) Band Neutrophils 19 H 6 H % (Manual) Lymphocytes % Lymphocytes % 1 L 3 L (Manual) Monocytes % Monocytes % 8 7 (Manual) Eosinophils % Eosinophils % 1 1 (Manual) Basophils % Nucleated Red 0.0 0.0 Blood Cells % Immature 1.250 H 0.980 H Granulocytes # Neutrophils # Neutrophils # 21.0 H 18.7 H (Manual) Band Neutrophils 5.2 H 1.3 H # Lymphocytes 0.2 L 0.6 L (Manual) Lymphocytes # Monocytes # Monocytes # 2.2 H 1.5 H (Manual) Eosinophils # Basophils # Nucleated Red Blood Cells # Pathologist YES-PATH Review (Hematolo TO CONFIRM gy) Platelet NORMAL NORMAL Estimate Polychromasia 1+ 2+ Hypochromasia 1+ 1+ Anisocytosis 2+ 2+ Macrocytosis 2+ 2+ Prothrombin Time 27.7 H Prothrombin Time 2.2 Ratio INR 2.58 International Normalized Ratio Activated 54.4 H Partial Thrombop last Time Urine Color MAURILIO MAURILIO Urine Clarity SLIGHTLY CLOUDY SLIGHTLY CLOUDY A A Urine pH 5.0 5.0 Urine Specific 1.014 1.014 [place] Urine Ketones NEGATIVE NEGATIVE Urine Nitrite NEGATIVE NEGATIVE Urine Bilirubin 2+ H 2+ H Urine 2+ H 2+ H Urobilinogen Urine Leukocyte NEGATIVE NEGATIVE Esterase Urine 0 0 Microscopic RBC Urine 3 3 Microscopic WBC Urine Mucus FEW A Urine Hemoglobin NEGATIVE NEGATIVE Urine Glucose NEGATIVE NEGATIVE Urine Total NEGATIVE 50.0 H Protein Sodium Level 134 L 132 L Potassium Level 4.1 3.9 Chloride Level 102 103 Carbon Dioxide 21 21 Level Anion Gap 11 8 Blood Urea 31 H 32 H Nitrogen Creatinine 2.90 H 3.07 H Est Glomerular 24 L 23 L Filtrat Rate mL/min Glucose Level 93 84 Calcium Level 8.1 L 7.9 L Total Bilirubin 18.6 H Direct Bilirubin 16.60 *H Indirect 2.0 H Bilirubin Aspartate Amino 108 H Transf (AST/SGOT ) Alanine 14 Aminotransferase (ALT/SGPT) Alkaline 259 H Phosphatase Total Protein 6.5 Albumin 2.5 L Globulin 4.00 H Albumin/Globulin 0.62 Ratio Lipase 74 Urine Bacteria FEW A Urine Granular FEW A Casts Urine Random 112.26 Creatinine Poikilocytosis 1+ Target Cells 1+ Phosphorus Level 4.6 Magnesium Level 2.4 Subjective 24 Hr Interval Summary Free Text/Dictation unable to get paracentesis yesterday, not enough fluid on USS Exam/Review of Systems Exam Vitals Vital Signs Date Temp Pulse Resp B/P (MAP) Pulse Ox O2 O2 Flow FiO2 Time Delivery Rate 08/01/18 97 08:13 08/01/18 98.2 18 125/75 96 Room Air 07:40 (92) Intake and Output 07/31/18 07/31/18 08/01/18 1515:00 23:00 07:00 IntakeIntake Total 350 ml 200 ml OutputOutput Total 300 ml 150 ml BalanceBalance 50 ml 50 ml Exam General: A&O x3, answering questions appropriately, jaundiced+++, generalized anasarca HEENT: NC/ AT. PERRL. EOM intact, + scleral icterus Neck: supple CVS: S1, S2, RRR. no murmurs. no pain on chest wall palpation Lungs: CTA b/l. no wheezing or rhonchi, dimished breath sounds Abd: soft, nontender, +BS, protuberant, but not tense Ext: moving all extremities, edema ++ up to abdomen skin: jaundice Results Results 24hrs Laboratory Tests Test 07/31/18 09:07 07/31/18 09:08 07/31/18 18:42 08/01/18 05:35 Urine Random < 13 L Sodium White Blood 27.5 H 22.2 H Count Red Blood Count 3.50 L 2.87 L Hemoglobin 12.1 L 10.2 L Hematocrit 35.6 L 28.4 #L Mean Corpuscular 101.7 H 99.0 Volume Mean Corpuscular 34.6 H 35.5 H Hemoglobin Mean Corpuscular 34.0 35.9 Hemoglobin Leslee nt Red Cell 16.1 H 15.9 H Distribution Width Platelet Count 260 197 # Mean Platelet 9.2 9.1 Volume Immature 4.500 H 4.400 H Granulocytes % Neutrophils % Segmented 71 83 H Neutrophils % (Manual) Band Neutrophils 19 H 6 H % (Manual) Lymphocytes % Lymphocytes % 1 L 3 L (Manual) Monocytes % Monocytes % 8 7 (Manual) Eosinophils % Eosinophils % 1 1 (Manual) Basophils % Nucleated Red 0.0 0.0 Blood Cells % Immature 1.250 H 0.980 H Granulocytes # Neutrophils # Neutrophils # 21.0 H 18.7 H (Manual) Band Neutrophils 5.2 H 1.3 H # Lymphocytes 0.2 L 0.6 L (Manual) Lymphocytes # Monocytes # Monocytes # 2.2 H 1.5 H (Manual) Eosinophils # Basophils # Nucleated Red Blood Cells # Pathologist YES-PATH Review (Hematolo TO CONFIRM gy) Platelet NORMAL NORMAL Estimate Polychromasia 1+ 2+ Hypochromasia 1+ 1+ Anisocytosis 2+ 2+ Macrocytosis 2+ 2+ Prothrombin Time 27.7 H Prothrombin Time 2.2 Ratio INR 2.58 International Normalized Ratio Activated 54.4 H Partial Thrombop last Time Urine Color MAURILIO MAURILIO Urine Clarity SLIGHTLY CLOUDY SLIGHTLY CLOUDY A A Urine pH 5.0 5.0 Urine Specific 1.014 1.014 [place] Urine Ketones NEGATIVE NEGATIVE Urine Nitrite NEGATIVE NEGATIVE Urine Bilirubin 2+ H 2+ H Urine 2+ H 2+ H Urobilinogen Urine Leukocyte NEGATIVE NEGATIVE Esterase Urine 0 0 Microscopic RBC Urine 3 3 Microscopic WBC Urine Mucus FEW A Urine Hemoglobin NEGATIVE NEGATIVE Urine Glucose NEGATIVE NEGATIVE Urine Total NEGATIVE 50.0 H Protein Sodium Level 134 L 132 L Potassium Level 4.1 3.9 Chloride Level 102 103 Carbon Dioxide 21 21 Level Anion Gap 11 8 Blood Urea 31 H 32 H Nitrogen Creatinine 2.90 H 3.07 H Est Glomerular 24 L 23 L Filtrat Rate mL/min Glucose Level 93 84 Calcium Level 8.1 L 7.9 L Total Bilirubin 18.6 H Direct Bilirubin 16.60 *H Indirect 2.0 H Bilirubin Aspartate Amino 108 H Transf (AST/SGOT ) Alanine 14 Aminotransferase (ALT/SGPT) Alkaline 259 H Phosphatase Total Protein 6.5 Albumin 2.5 L Globulin 4.00 H Albumin/Globulin 0.62 Ratio Lipase 74 Urine Bacteria FEW A Urine Granular FEW A Casts Urine Random 112.26 Creatinine Poikilocytosis 1+ Target Cells 1+ Phosphorus Level 4.6 Magnesium Level 2.4 Medications Medication Current Medications Albumin Human 100 ml @ 100 mls/hr Q8H IV Last administered on 08/01/18at 07:37; Admin Dose 100 MLS/HR; Start 07/31/18 at 16:00; Stop 08/01/18 at 08:59 Ceftazidime/ Dextrose 50 ml @ 100 mls/hr Q12 IVPB Last administered on 08/01/18at 00:50; Admin Dose 100 MLS/HR; Start 07/31/18 at 16:30 Albumin Human 100 ml @ 100 mls/hr Q8H IV ; Start 08/01/18 at 09:00; Stop 08/02/18 at 01:59 JOSH LOREDO Aug 01, 2018 09:01
--- NOTE | 2018-08-01 09:09 | PN ---
DATE: 08/01/2018 SUBJECTIVE: The patient is stable. Urinary output has been minimal overnight, approximately 450 mL. No other events noted. No hemoptysis, hematemesis, or hematochezia. OBJECTIVE: VITAL SIGNS: Blood pressure is 125/75, respirations 16, pulse 100, temperature 98.2. HEENT: Head is normocephalic. NECK: Supple. HEART: Regular rate. LUNGS: Show diminished breath sounds at the base. ABDOMEN: Soft, nontender to palpation without rebound or guarding. EXTREMITIES: Negative for clubbing, cyanosis. Positive edema. DERMATOLOGIC: No rashes. MUSCULOSKELETAL: No joint effusion. NEUROLOGIC: No change in exam. MEDICATIONS: Reviewed. LABORATORY DATA: Shows sodium 132, potassium 3.9, BUN 32, creatinine 3.07, glucose 87. White count 22.2, hemoglobin 10.2, platelet count is 197. Urinalysis shows evidence of granular casts. The jackelyn ent has a protein/creatinine ratio of 440 mg per gram of creatinine. IMAGING STUDY: Renal ultrasound shows no evidence of obstruction. ASSESSMENT AND PLAN: 1. Oliguric acute kidney injury with previously normal baseline creatinine. Etiology is concerning for hepatorenal syndrome; however, the patient's urinalysis does show evidence of granular casts, sug gesting of tubular injury. This by definition is an excluding criteria for hepatorenal syndrome. Th erefore, at this point, the patient remains in injury phase of acute tubular necrosis. We will there fore continue treatment plan, supportive care, renally dose all medicines. Continue volume expansion with IV albumin. Continue antibiotics to treat underlying sepsis. We will monitor renal function c losely. 2. Hypernatremia secondary to acute kidney injury causing decreased free water urinary excretion. T he patient was placed on free water restriction, continue to monitor. 3. Anemia. Monitor hemoglobin and hematocrit levels. 4. Mineral bone disorder, monitor calcium and phosphorus levels. 5. Acute liver failure secondary to acute hepatitis. The patient is currently decompensated. Yonatan nue current medical management. Follow up with GI. 6. Sepsis, possibly secondary to a spontaneous bacterial peritonitis. Continue current antibiotic r egimen, consider paracentesis diagnostics. We will continue to monitor closely. Dictated By: DIONY JACOBSEN DO NR/NTS Conf#: [id number] DID#: [id number] CC: JOSH LOREDO MD;*[facility]*
--- NOTE | 2018-08-01 14:31 | NUR ---
SW: ARRANGING FAMILY CONFERENCE SW was verbally consulted to arrange for a family conference before 2:00pm by Dr. Tena. MERVIN and Dr. Tena met with patient at bedside, and patient stating his is his surrogate spokesperson, and provided verbal consent to contact . SW attempted to contact with several times today via telephone at [phone] and left [facility] with pump operator byproducts requesting call back. ended up picking up the phone around 2:10pm after numerous attempts were made. She stated she is here in the hospital and able to do conference at this time. However, Dr. Tena has meetings that were already prearranged and she is unable to hold conference at this time. states she is not available to come in tomorrow as she is working. States she will be here until about 4:00pm today. Dr. Tena made aware. SW remains available as needed throughout patient's treatment process.
--- NOTE | 2018-08-01 18:26 | NUR ---
EOSS PT. IS AWAKE AND ALERT, CALL LIGHT W/IN REACH. PT. IS STEADY IN AMBULATING. PT. IS AWARE THAT HE IS ON STRICT I&O AND THE HE IS ONLY ALLOWED 1L/DAY. WILL CONTINUE TO MONITOR.
[2018-08-02] VITALS (11 sets, daily range): BP systolic 119–135; BP diastolic 69–77; PULSE 90–110; RESP 18–21
--- NOTE | 2018-08-02 06:32 | NUR ---
END OF SHIFT SUMMARY: PT A/A/O X 4. SR/ST IN FI[employer] OFFICER. VS MONITORED, STABLE. ON ROOM AIR WITH O2 SAT AT 94-98%. NO C/O PAIN OR SHORTNESS OF BREATH. ABDOMEN DISTENDED BUT DENIES ABDOMINAL PAIN. BILATERAL LOWER EXTREMITIES WITH +2 PITTING EDEMA, ELEVATED WITH PILLOW. ABLE TO AMBULATE WITH SUPERVISION AND STEADY GAIT FROM BED TO BR AND BACK. REMAINS JAUNDICED. AFEBRILE. ON IV ANTIBIOTICS AND ALBUMIN IV. VOIDING WELL. FLUID RESTRICTION 1 LITER MAINATINED. STRICT INTAKE AND OUTPUT MAINTAINED. WILL ENDORSED TO AM NURSE.
--- NOTE | 2018-08-02 07:25 | NUR ---
TET FROM LAB CALLED CRITICAL LEVELS OF TOTAL BILIRUBIN-19.8 AND DIRECT BILIRUBIN-17.2. SENT MESSAGE TO DR SAHU AND HE RETURNED CALL BUT NO NEW ORDERS. ENDORSED TO AM NURSE.
[2018-08-02] MEDS: CEFTAZIDIME 2GM/50 ML (PMX) 50 ML IVPB SCH ×2 (08:39→20:35)
[2018-08-02] MEDS: ALBUMIN HUMAN 25% 100 ML IV SCH (08:39)
--- NOTE | 2018-08-02 12:11 | PN ---
DATE: 08/02/2018 SUBJECTIVE: The patient overnight remained stable. The patient's urinary output is approximately 95 0 mL. No other events noted. No hemoptysis, hematemesis, or hematochezia. OBJECTIVE: VITAL SIGNS: Blood pressure is 135/69, respirations 18, pulse 96, temperature 98.4. HEENT: Head is normocephalic. NECK: Supple. HEART: Regular rate. LUNGS: Show diminished breath sounds at the base. ABDOMEN: Soft, nontender to palpation without rebound or guarding. EXTREMITIES: Negative for clubbing, cyanosis. Positive edema. DERMATOLOGIC: No rashes. MUSCULOSKELETAL: No joint effusion. NEUROLOGIC: No change in exam. MEDICATIONS: The patient's medications have been reviewed. LABORATORY DATA: Reviewed. Sodium 132, BUN 35, creatinine 3.49. White count 25.5, hemoglobin 10.1, platelet count is 180. ASSESSMENT AND PLAN: 1. Nonoliguric acute kidney injury with previously known baseline creatinine. Etiology of acute kid luis felipe injury is secondary to tubular injury. The patient's urinalysis shows evidence of granular casts consistent with tubular injury. However, the patient likely has underlying hepatorenal pathophysiol ogy. At this point, we would continue current treatment plans, supportive care, renally dose all med icines, which we will continue antibiotic therapy to treat underlying sepsis. Otherwise, continue to monitor closely. No immediate need for renal replacement therapy at this time. 2. Hyponatremia secondary to acute kidney injury causing decreased free water urinary excretion. Th e patient was placed on free water restriction, continue to monitor. 3. Anemia. Continue to monitor hemoglobin and hematocrit levels. 4. Mineral bone disorder, monitor calcium and phosphorus levels. 5. Acute liver failure secondary to acute hepatitis. The patient is currently decompensated. Yonatan nue current medical management. Follow up with GI. 6. Sepsis, source unclear, possible SBP. Continue antibiotic therapy, monitor closely. Dictated By: DIONY JACOBSEN DO NR/NTS Conf#: [id number] DID#: [id number] CC: JOSH LOREDO MD;*EndCC*
--- NOTE | 2018-08-02 13:56 | PN ---
Date/Time of Note Date/Time of Note DATE: 08/02/18 TIME: 13:55 Assessment/Plan VTE Prophylaxis Risk score (from Nsg)>0 risk: 2 SCD applied (from Nsg): No Lines/Catheters IV Catheter Type (from Nrsg): Saline Lock Urinary Cath still in place: No Assessment/Plan Hospital Course 42-year-old known alcoholic who presents with lower extremity swelling, reduced urine output, worsening jaundice and abdominal pain managed as follows 1. Severe sepsis versus SIRS -unfortunately unable to get ascitic fluid to eval for SBP -f/u blood and urine cultures -continue abx 2. Rule out SBP 3. Rule out UTI 4. Acute renal insufficiency highly concerning for hepatorenal syndrome -appreciate nephrology input, renal function worse today -continue to follow recommendations 5. Chronic alcoholic liver failure, worsening with worsened hyperbilirubinemia * Chronic coagulopathy * chronic megaloblastic anemia * Generalized anasarca * severe jaundice 6. Chronic alcohol abuse -patient states no drink since 06/11 -continue to re-inforce cessation 7. 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, patient has been recommended for outpatient liver biopsy Result Diagram: 08/02/1818 08/02/1818 Results 24hrs Laboratory Tests Test 08/02/18 05:18 White Blood Count 25.5 H Red Blood Count 2.88 L Hemoglobin 10.1 L Hematocrit 28.8 L Mean Corpuscular Volume 100.0 Mean Corpuscular Hemoglobin 35.1 H Mean Corpuscular Hemoglobin Concent 35.1 Red Cell Distribution Width 15.9 H Platelet Count 180 Mean Platelet Volume 9.4 Immature Granulocytes % 3.700 H Neutrophils % 82.5 H Lymphocytes % 5.5 L Monocytes % 7.1 Eosinophils % 1.0 Basophils % 0.2 Nucleated Red Blood Cells % 0.0 Immature Granulocytes # 0.930 H Neutrophils # 21.0 H Lymphocytes # 1.4 Monocytes # 1.8 H Eosinophils # 0.3 Basophils # 0.1 Nucleated Red Blood Cells # 0.0 Sodium Level 132 L Potassium Level 4.3 Chloride Level 102 Carbon Dioxide Level 22 Anion Gap 8 Blood Urea Nitrogen 35 H Creatinine 3.49 H Est Glomerular Filtrat Rate mL/min 20 L Glucose Level 79 Calcium Level 8.3 L Phosphorus Level 4.5 Magnesium Level 2.6 H Total Bilirubin 19.8 H Direct Bilirubin 17.20 *H Indirect Bilirubin 2.6 H Aspartate Amino Transf (AST/SGOT) 81 H Alanine Aminotransferase (ALT/SGPT) 16 Alkaline Phosphatase 127 #H Total Protein 5.4 #L Albumin 2.4 L Exam/Review of Systems Exam Vitals Vital Signs Date Temp Pulse Resp B/P (MAP) Pulse Ox O2 O2 Flow FiO2 Time Delivery Rate 08/02/18 98.7 101 18 130/77 97 Room Air 12:11 (94) Intake and Output 08/01/18 08/01/18 08/02/18 1515:00 23:00 07:00 IntakeIntake Total 900 ml 300 ml OutputOutput Total 700 ml 250 ml BalanceBalance 200 ml 50 ml Results Results 24hrs Laboratory Tests Test 08/02/18 05:18 White Blood Count 25.5 H Red Blood Count 2.88 L Hemoglobin 10.1 L Hematocrit 28.8 L Mean Corpuscular Volume 100.0 Mean Corpuscular Hemoglobin 35.1 H Mean Corpuscular Hemoglobin Concent 35.1 Red Cell Distribution Width 15.9 H Platelet Count 180 Mean Platelet Volume 9.4 Immature Granulocytes % 3.700 H Neutrophils % 82.5 H Lymphocytes % 5.5 L Monocytes % 7.1 Eosinophils % 1.0 Basophils % 0.2 Nucleated Red Blood Cells % 0.0 Immature Granulocytes # 0.930 H Neutrophils # 21.0 H Lymphocytes # 1.4 Monocytes # 1.8 H Eosinophils # 0.3 Basophils # 0.1 Nucleated Red Blood Cells # 0.0 Sodium Level 132 L Potassium Level 4.3 Chloride Level 102 Carbon Dioxide Level 22 Anion Gap 8 Blood Urea Nitrogen 35 H Creatinine 3.49 H Est Glomerular Filtrat Rate mL/min 20 L Glucose Level 79 Calcium Level 8.3 L Phosphorus Level 4.5 Magnesium Level 2.6 H Total Bilirubin 19.8 H Direct Bilirubin 17.20 *H Indirect Bilirubin 2.6 H Aspartate Amino Transf (AST/SGOT) 81 H Alanine Aminotransferase (ALT/SGPT) 16 Alkaline Phosphatase 127 #H Total Protein 5.4 #L Albumin 2.4 L Medications Medication Current Medications Ceftazidime/ Dextrose 50 ml @ 100 mls/hr Q12 IVPB Last administered on 08/02/18at 08:39; Admin Dose 100 MLS/HR; Start 07/31/18 at 16:30 JOSH LOREDO Aug 02, 2018 13:56
[2018-08-02] MEDS ORDERED: ALBUMIN HUMAN 25% 50 ML IV ONE (15:30)
--- NOTE | 2018-08-02 17:45 | CONS ---
Assessment/Plan Assessment/Plan Assessment/Plan (Daily) Assessment: Alcoholic liver cirrhosis Hepatorenal syndrome Hyperbilirubinemia Sepsis -rule out SBP Coagulopathy Chronic alcohol abuse Obesity History of recent pneumonia Plan: Continue antibiotics for SBP prophylaxis MRCP Start octreotide drip -to improve renal flow Advised to quit the alcohol Recommend EGD to screen for esophageal varices Patient seen in collaboration with Dr. Mohamud Consultation Date/Type/Reason Admit Date/Time Date of Consultation: Aug 02, 2018 Type of Consult GI Reason for Consultation Decompensated liver cirrhosis Date/Time of Note DATE: 08/02/18 TIME: 17:19 Hx of Present Illness This is a 42-year-old male with a history of alcoholic liver disease who was admitted for lower extremity swelling and worsening of the jaundice. Patient states he noticed the jaundice and yellowing of the sclera on June 28. Patient has a long history of alcohol abuse. He has been drinking 2 bottles of tequila a week. Last drink was June 25. Patient was found to have hepatorenal syndrome with acute renal failure. Hyperbilirubinemia with coagulopathy. Abdominal ultrasound shows distended gallbladder and fatty liver. MRCP is pending. Patient is septic with bilirubin of 19.8 and direct bilirubin 17.0. Elevated AST and INR. Patient has hepatorenal syndrome with acute renal failure. He urine culture has been sent to rule out UTI.White blood count is elevated concerning for SBP. Patient has been started on ceftriaxone for SBP prophylaxis. Patient denies any history of EGD or colonoscopy. Recommend EGD for esophageal varices screening. Discussed quitting alcohol with the patient. Due to infection patient does not qualify for steroid treatment. We will continue observation. Gastrointestinal: no complaints (See HPI) Past Medical History Home Meds Active Scripts Pentoxifylline* (Pentoxifylline*) 400 Mg Tablet.sa, 400 MG PO TID for 25 Days, #75 TAB Prov:DONOVAN LUNA 07/12/18 Discontinued Scripts Levofloxacin* (Levofloxacin*) 750 Mg Tablet, 750 MG PO DAILY for 5 Days, #5 TAB Prov:DONOVAN LUNA 07/23/18 Medications Current Medications Ceftazidime/ Dextrose 50 ml @ 100 mls/hr Q12 IVPB Last administered on 08/02/18at 08:39; Admin Dose 100 MLS/HR; Start 07/31/18 at 16:30 Allergies: Coded Allergies: No Known Allergy (Unverified , 07/08/18) Social History Alcohol Use: sober (?[id number]) Smoking Status: Never smoker Drug Use: none Exam/Review of Systems Exam Vitals Vital Signs Date Temp Pulse Resp B/P (MAP) Pulse Ox O2 O2 Flow FiO2 Time Delivery Rate 08/02/18 92 16:12 08/02/18 98.8 18 119/74 96 Room Air 15:31 (89) Intake and Output 08/01/18 08/01/18 08/02/18 1515:00 23:00 07:00 IntakeIntake Total 900 ml 300 ml OutputOutput Total 700 ml 250 ml BalanceBalance 200 ml 50 ml Exam PHYSICAL EXAMINATION: GENERAL: Well developed, well nourished, alert & oriented x 3, in no acute distress SKIN: No lesions, jaundice, no stigmata chronic liver disease, no evidence of bleeding diathesis LYMPHATIC: No palpable lymphadenopathy. HEAD: Normocephalic, atraumatic, no tenderness. EYES: Pupils equal reactive to light and accommodation, full extraocular movements, sclera-icteric, no discharge. EARS/NOSE AND THROAT: Ears normal, nose normal, oropharynx normal, oral membranes well hydrated without lesions. NECK: Supple, no masses, thyroid normal, JVP within normal limits, carotids normal without bruits. CHEST: Inspection within normal limits. CARDIOVASCULAR: Heart: Regular rate and rhythm, no murmurs, gallops or rubs. Peripheral pulses present within normal limits, no cyanosis, clubbing or edemas. No pulsatile abdominal mass RESPIRATORY: Lungs clear to auscultation and percussion, no wheezing, no rubs GASTROINTESTINAL AND LIVER: Abdomen: Soft, non tenderness, non-distended, no hernias, no masses, no organomegaly, ascites, no guarding, no rebound tendernes s, normoactive bowel sounds. Rectal: Deferred. GENITOURINARY: Male genitalia within normal limits. EXTREMITIES: No cyanosis, clubbing, lower extremities +4 pitting edema. Results Result Diagram: 08/02/1818 08/02/1818 Results 24hrs Laboratory Tests Test 08/02/18 05:18 White Blood Count 25.5 H Red Blood Count 2.88 L Hemoglobin 10.1 L Hematocrit 28.8 L Mean Corpuscular Volume 100.0 Mean Corpuscular Hemoglobin 35.1 H Mean Corpuscular Hemoglobin Concent 35.1 Red Cell Distribution Width 15.9 H Platelet Count 180 Mean Platelet Volume 9.4 Immature Granulocytes % 3.700 H Neutrophils % 82.5 H Lymphocytes % 5.5 L Monocytes % 7.1 Eosinophils % 1.0 Basophils % 0.2 Nucleated Red Blood Cells % 0.0 Immature Granulocytes # 0.930 H Neutrophils # 21.0 H Lymphocytes # 1.4 Monocytes # 1.8 H Eosinophils # 0.3 Basophils # 0.1 Nucleated Red Blood Cells # 0.0 Sodium Level 132 L Potassium Level 4.3 Chloride Level 102 Carbon Dioxide Level 22 Anion Gap 8 Blood Urea Nitrogen 35 H Creatinine 3.49 H Est Glomerular Filtrat Rate mL/min 20 L Glucose Level 79 Calcium Level 8.3 L Phosphorus Level 4.5 Magnesium Level 2.6 H Total Bilirubin 19.8 H Direct Bilirubin 17.20 *H Indirect Bilirubin 2.6 H Aspartate Amino Transf (AST/SGOT) 81 H Alanine Aminotransferase (ALT/SGPT) 16 Alkaline Phosphatase 127 #H Total Protein 5.4 #L Albumin 2.4 L Medications Medication Current Medications Ceftazidime/ Dextrose 50 ml @ 100 mls/hr Q12 IVPB Last administered on 08/02/18at 08:39; Admin Dose 100 MLS/HR; Start 07/31/18 at 16:30 KRAIG REESE NP Aug 02, 2018 17:39
--- NOTE | 2018-08-02 18:31 | NUR ---
EOSS: pt resting on bed, VS stable, denies pain, denies SOB. Pt pending stomach MRI, MRI questionnaire done. Hourly rounding done per unit's protocol, bed brakes engaged, side rails up, call light within reach. will endorse to mold shifter nurse.
[2018-08-02] MEDS: OCTREOTIDE 1 MG in DEXTROSE 5% 95 ML IV SCH (20:05)
--- NOTE | 2018-08-02 23:15 | NUR ---
PATIENT WENT DOWN TO MRI FOR MRI ABDOMEN ACCOMPANIED BY WAITER/WAITRESS HEAD/TRANSPORTER AND CAME BACK AT 2230.
[2018-08-03] VITALS (12 sets, daily range): BP systolic 119–144; BP diastolic 63–79; PULSE 89–107; RESP 17–20
--- NOTE | 2018-08-03 06:35 | NUR ---
END OF THE SHIFT SUMMARY: PT A/A/O X 4, REMAINS JAUNDICED AND SWOLLEN. SR IN SNUFF GRINDER. VS MONITORED AND STABLE. ON ROOM AIR WITH O2 SAT AT 95-98%. NO C/O PAIN OR SHORTNESS OF BREATH. STARTED ON SANDOSTATIN IV AT 5 ML/HR. HAD MRI OF THE ABDOMEN.REMAINS ON ANTIBIOTICS IV.SLEPT MOST OF THE NIGHT. WILL ENDORSED TO AM NURSE.
--- NOTE | 2018-08-03 07:50 | PN ---
Date/Time of Note Date/Time of Note DATE: 08/03/18 TIME: 07:49 Assessment/Plan VTE Prophylaxis Risk score (from Ns)>0 risk: 2 [place] [facility] [place] contraindicated: other Pharmacological prophylaxis: other Lines/Catheters IV [facility] Type (from [facility]): Peripheral IV Urinary Cath still in place: No Assessment/Plan Hospital Course SUBJECTIVE: The patient overnight remained stable. The patient's urinary output is approximately 900 mL. No other events noted. No hemoptysis, hematemesis, or hematochezia. OBJECTIVE: HEENT: Head is normocephalic. NECK: Supple. HEART: Regular rate. LUNGS: Show diminished breath sounds at the base. ABDOMEN: Soft, nontender to palpation without rebound or guarding. EXTREMITIES: Negative for clubbing, cyanosis. Positive edema. DERMATOLOGIC: No rashes. MUSCULOSKELETAL: No joint effusion. NEUROLOGIC: No change in exam. MEDICATIONS: The patient's medications have been reviewed. ASSESSMENT AND PLAN: 1. Nonoliguric acute kidney injury with previously known baseline creatinine. Etiology of acute kidney injury is secondary to tubular injury. The patient's urinalysis shows evidence of granular casts consistent with tubular injury. However, the patient likely has underlying type 2 hepatorenal pathophysiology. At this point, we would continue current treatment plans, supportive care, renally dose all medicines, which we will continue antibiotic therapy to treat underlying sepsis. Otherwise, continue to monitor closely. No immediate need for renal replacement therapy at this time. will start IVF 2. Hyponatremia secondary to acute kidney injury causing decreased free water urinary excretion. 3. Anemia. Continue to monitor hemoglobin and hematocrit levels. 4. Mineral bone disorder, monitor calcium and phosphorus levels. 5. Acute liver failure secondary to acute hepatitis. The patient is currently decompensated. Continue current medical management. Follow up with GI. 6. Sepsis, source unclear, possible SBP. Continue antibiotic therapy, monitor closely. Result Diagram: 08/03/1852308/03/18 0524 Results 24hrs Laboratory Tests Test 08/03/18 05:24 White Blood Count 23.3 H Red Blood Count 3.00 L Hemoglobin 10.4 L Hematocrit 29.9 L Mean Corpuscular Volume 99.7 Mean Corpuscular Hemoglobin 34.7 H Mean Corpuscular Hemoglobin Concent 34.8 Red Cell Distribution Width 15.8 H Platelet Count 161 Mean Platelet Volume 9.4 Immature Granulocytes % 3.400 H Neutrophils % 82.5 H Lymphocytes % 5.5 L Monocytes % 7.0 Eosinophils % 1.3 Basophils % 0.3 Nucleated Red Blood Cells % 0.0 Immature Granulocytes # 0.790 H Neutrophils # 19.3 H Lymphocytes # 1.3 Monocytes # 1.6 H Eosinophils # 0.3 Basophils # 0.1 Nucleated Red Blood Cells # 0.0 Sodium Level 135 Potassium Level 3.5 Chloride Level 105 Carbon Dioxide Level 19 L Anion Gap 11 Blood Urea Nitrogen 36 H Creatinine 3.61 H Est Glomerular Filtrat Rate mL/min 19 L Glucose Level 85 Calcium Level 8.5 Phosphorus Level 4.7 Magnesium Level 2.6 H Exam/Review of Systems Exam Vitals Vital Signs Date Temp Pulse Resp B/P (MAP) Pulse Ox O2 O2 Flow FiO2 Time Delivery Rate 08/03/18 98.4 95 20 122/66 94 Room Air 07:18 (84) Intake and Output 08/02/18 08/02/18 08/03/18 1515:00 23:00 07:00 IntakeIntake Total 406 ml 350 ml OutputOutput Total 500 ml 400 ml BalanceBalance -94 ml -50 ml Results Results 24hrs Laboratory Tests Test 08/03/18 05:24 White Blood Count 23.3 H Red Blood Count 3.00 L Hemoglobin 10.4 L Hematocrit 29.9 L Mean Corpuscular Volume 99.7 Mean Corpuscular Hemoglobin 34.7 H Mean Corpuscular Hemoglobin Concent 34.8 Red Cell Distribution Width 15.8 H Platelet Count 161 Mean Platelet Volume 9.4 Immature Granulocytes % 3.400 H Neutrophils % 82.5 H Lymphocytes % 5.5 L Monocytes % 7.0 Eosinophils % 1.3 Basophils % 0.3 Nucleated Red Blood Cells % 0.0 Immature Granulocytes # 0.790 H Neutrophils # 19.3 H Lymphocytes # 1.3 Monocytes # 1.6 H Eosinophils # 0.3 Basophils # 0.1 Nucleated Red Blood Cells # 0.0 Sodium Level 135 Potassium Level 3.5 Chloride Level 105 Carbon Dioxide Level 19 L Anion Gap 11 Blood Urea Nitrogen 36 H Creatinine 3.61 H Est Glomerular Filtrat Rate mL/min 19 L Glucose Level 85 Calcium Level 8.5 Phosphorus Level 4.7 Magnesium Level 2.6 H Medications Medication Current Medications Ceftazidime/ Dextrose 50 ml @ 100 mls/hr Q12 IVPB Last administered on 08/02/18at 20:35; Admin Dose 100 MLS/HR; Start 07/31/18 at 16:30 Octreotide Acetate 1 mg/ Dextrose 100 ml @ 5 mls/hr Q20H IV Last administered on 08/02/18at 20:05; Admin Dose 5 MLS/HR; Start 08/02/18 at 19:30 JEFFREY KEN DO Aug 03, 2018 07:50
[2018-08-03] MEDS: SOD CHLORIDE 0.9% 1,000 ML IV SCH ×2 (08:35→20:30)
[2018-08-03] MEDS: CEFTAZIDIME 2GM/50 ML (PMX) 50 ML IVPB SCH ×2 (08:35→21:16)
[2018-08-03] MEDS ORDERED: SOD CHLORIDE 0.9% 250 ML IV* ONE (13:08)
--- NOTE | 2018-08-03 13:21 | PN ---
Date/Time of Note Date/Time of Note DATE: 08/03/18 TIME: 13:18 Assessment/Plan VTE Prophylaxis Risk score (from [facility] [place])>0 risk: 1 SCD applied (from [facility] [place]): No SCD contraindicated: low risk/ambulating Pharmacological prophylaxis: NA/contraindicated Pharm contraindication: blood coag disorder Lines/Catheters IV [facility]ter Type (from [facility]): Peripheral IV Urinary Cath still in place: No Assessment/Plan Problems: (1) Acute kidney injury Status: Acute Comment: I agree that this is probably ATN associated with some degree of sepsis. I suspect a biliary source given the overall picture. Continue suppor tive care and look at the biliary tree (2) Peripheral edema Status: Acute Comment: As above combined with liver disease (3) Leukocytosis Status: Acute Comment: Believe due to infection (4) Alcoholic hepatitis with ascites Status: Acute Comment: Culture after reverse the coagulopathy with FFP. Also can give some vitamin K. My main concern here is that there is evidence of biliary sludge on some of the imaging. MRI scan was not MRCP so it does not help. The level of the bilirubin both indirect and direct are suggestive of an obstructive hepatopathy and as such I am strongly of the opinion that GI should consider ERCP per Result Diagram: 08/03/18 0524 08/03/18 0524 Results 24hrs Laboratory Tests Test 08/03/18 05:24 White Blood Count 23.3 H Red Blood Count 3.00 L Hemoglobin 10.4 L Hematocrit 29.9 L Mean Corpuscular Volume 99.7 Mean Corpuscular Hemoglobin 34.7 H Mean Corpuscular Hemoglobin Concent 34.8 Red Cell Distribution Width 15.8 H Platelet Count 161 Mean Platelet Volume 9.4 Immature Granulocytes % 3.400 H Neutrophils % 82.5 H Lymphocytes % 5.5 L Monocytes % 7.0 Eosinophils % 1.3 Basophils % 0.3 Nucleated Red Blood Cells % 0.0 Immature Granulocytes # 0.790 H Neutrophils # 19.3 H Lymphocytes # 1.3 Monocytes # 1.6 H Eosinophils # 0.3 Basophils # 0.1 Nucleated Red Blood Cells # 0.0 Sodium Level 135 Potassium Level 3.5 Chloride Level 105 Carbon Dioxide Level 19 L Anion Gap 11 Blood Urea Nitrogen 36 H Creatinine 3.61 H Est Glomerular Filtrat Rate mL/min 19 L Glucose Level 85 Calcium Level 8.5 Phosphorus Level 4.7 Magnesium Level 2.6 H Subjective 24 Hr Interval Summary Free Text/Dictation Patient complains is been in the hospital he is afraid about maintaining income for his household Constitutional: no complaints Gastrointestinal: pain Exam/Review of Systems Exam Vitals Vital Signs Date Temp Pulse Resp B/P (MAP) Pulse Ox O2 O2 Flow FiO2 Time Delivery Rate 08/03/18 107 12:01 08/03/18 98.4 20 119/70 96 Room Air 11:24 (86) Intake and Output 08/02/18 08/02/18 08/03/18 1515:00 23:00 07:00 IntakeIntake Total 406 ml 350 ml OutputOutput Total 500 ml 400 ml BalanceBalance -94 ml -50 ml Constitutional: alert, oriented Eyes: icteric Respiratory: clear to auscultation, normal air movement Cardiovascular: regular rate and rhythm, nl pulses Gastrointestinal: soft, non-tender, ascites, splenomegaly Results Results 24hrs Laboratory Tests Test 08/03/18 05:24 White Blood Count 23.3 H Red Blood Count 3.00 L Hemoglobin 10.4 L Hematocrit 29.9 L Mean Corpuscular Volume 99.7 Mean Corpuscular Hemoglobin 34.7 H Mean Corpuscular Hemoglobin Concent 34.8 Red Cell Distribution Width 15.8 H Platelet Count 161 Mean Platelet Volume 9.4 Immature Granulocytes % 3.400 H Neutrophils % 82.5 H Lymphocytes % 5.5 L Monocytes % 7.0 Eosinophils % 1.3 Basophils % 0.3 Nucleated Red Blood Cells % 0.0 Immature Granulocytes # 0.790 H Neutrophils # 19.3 H Lymphocytes # 1.3 Monocytes # 1.6 H Eosinophils # 0.3 Basophils # 0.1 Nucleated Red Blood Cells # 0.0 Sodium Level 135 Potassium Level 3.5 Chloride Level 105 Carbon Dioxide Level 19 L Anion Gap 11 Blood Urea Nitrogen 36 H Creatinine 3.61 H Est Glomerular Filtrat Rate mL/min 19 L Glucose Level 85 Calcium Level 8.5 Phosphorus Level 4.7 Magnesium Level 2.6 H Medications Medication Current Medications Ceftazidime/ Dextrose 50 ml @ 100 mls/hr Q12 IVPB Last administered on 08/03/18at 08:35; Admin Dose 100 MLS/HR; Start 07/31/18 at 16:30 Octreotide Acetate 1 mg/ Dextrose 100 ml @ 5 mls/hr Q20H IV Last administered on 08/02/18at 20:05; Admin Dose 5 MLS/HR; Start 08/02/18 at 19:30 Sodium Chloride 1,000 ml @ 80 mls/hr [id number] IV Last administered on 08/03/18at 08:35; Admin Dose 80 MLS/HR; Start 08/03/18 at 08:00 ZIA STEPHEN MD Aug 03, 2018 13:21
[2018-08-03] MEDS ORDERED: PHYTONADIONE (1 MG/ML PO SYG) PO ONE (14:30)
[2018-08-03] MEDS ORDERED: PHYTONADIONE 10 MG in DEXTROSE 5% 50 ML IVPB ONE (15:00)
--- NOTE | 2018-08-03 15:17 | NUR ---
spoke with Dr. Major about orders regarding FFP and Vitamin K, he stated that he only ordered [facility] radiologist needed pt to have it but if they do not need pt to have it then done give it, per radiologist Dr. Kilpatrick, pt does not need an updated INR and pt also does not need Vitamin K or FFP. explained everything to the pt and he states that he was not aware of any of these procedures and that he does not want anything done until he spokes with Dr. Major due to him not explaining the procedures, nso MRI and paracentesis on hold for now, Dr. Major just arrived and will speak with the pt.
--- NOTE | 2018-08-03 16:29 | NUR ---
PIV to left arm discontinued, left arm starting to swell, endorsed to oncoming RN just now, pt denies pain, no redness or itching to the arm.
[2018-08-03] MEDS: OCTREOTIDE 1 MG in DEXTROSE 5% 95 ML IV SCH (16:41)
--- NOTE | 2018-08-03 17:56 | NUR ---
RN notes patient aox4 able to make needs known, vitamin K PO given as ordered. MRI abdomen was done, pending result. stable at this time. will endorse
[2018-08-04] VITALS (10 sets, daily range): BP systolic 120–133; BP diastolic 71–86; PULSE 88–98; RESP 17–20
[2018-08-04] MEDS: SOD CHLORIDE 0.9% 1,000 ML IV SCH ×2 (05:33→20:51)
--- NOTE | 2018-08-04 07:28 | PN ---
Date/Time of Note Date/Time of Note DATE: 08/04/18 TIME: 07:28 Assessment/Plan VTE Prophylaxis Risk score (from Ns)>0 risk: 1 SCD applied (from [facility] [place]): No SCD contraindicated: other Pharmacological prophylaxis: other Lines/Catheters IV Catheter Type (from [facility]): Peripheral IV Urinary Cath still in place: No Assessment/Plan Hospital Course SUBJECTIVE: The patient overnight remained stable. The patient's urinary output is approximately 900 mL. No other events noted. No hemoptysis, hematemesis, or hematochezia. OBJECTIVE: HEENT: Head is normocephalic. NECK: Supple. HEART: Regular rate. LUNGS: Show diminished breath sounds at the base. ABDOMEN: Soft, nontender to palpation without rebound or guarding. EXTREMITIES: Negative for clubbing, cyanosis. Positive edema. DERMATOLOGIC: No rashes. MUSCULOSKELETAL: No joint effusion. NEUROLOGIC: No change in exam. MEDICATIONS: The patient's medications have been reviewed. ASSESSMENT AND PLAN: 1. Nonoliguric acute kidney injury with previously known baseline creatinine. Etiology of acute kidney injury is secondary to tubular injury. The patient's urinalysis shows evidence of granular casts consistent with tubular injury. However, the patient likely has underlying type 2 hepatorenal pathophysiology. At this point, we would continue current treatment plans, supportive care, renally dose all medicines, which we will continue antibiotic therapy to treat underlying sepsis. Otherwise, continue to monitor closely. No immediate need for renal replacement therapy at this time. will start IVF 2. Hyponatremia secondary to acute kidney injury causing decreased free water urinary excretion. 3. Anemia. Continue to monitor hemoglobin and hematocrit levels. 4. Mineral bone disorder, monitor calcium and phosphorus levels. 5. Acute liver failure secondary to acute hepatitis. The patient is currently decompensated. Continue current medical management. Follow up with GI. 6. Sepsis, source unclear, possible SBP. Continue antibiotic therapy, monitor closely. Result Diagram: 08/04/1845008/04/181 Results 24hrs Laboratory Tests Test 08/04/18 04:51 White Blood Count 21.8 H Red Blood Count 2.98 L Hemoglobin 10.3 L Hematocrit 30.3 L Mean Corpuscular Volume 101.7 H Mean Corpuscular Hemoglobin 34.6 H Mean Corpuscular Hemoglobin Concent 34.0 Red Cell Distribution Width 16.1 H Platelet Count 158 Mean Platelet Volume 9.3 Immature Granulocytes % 3.400 H Neutrophils % 81.1 H Lymphocytes % 5.7 L Monocytes % 7.8 Eosinophils % 1.4 Basophils % 0.6 Nucleated Red Blood Cells % 0.0 Immature Granulocytes # 0.750 H Neutrophils # 17.6 H Lymphocytes # 1.2 Monocytes # 1.7 H Eosinophils # 0.3 Basophils # 0.1 Nucleated Red Blood Cells # 0.0 Prothrombin Time 28.8 H Prothrombin Time Ratio 2.3 INR International Normalized Ratio 2.71 Activated Partial Thromboplast Time 56.8 H Sodium Level 137 Potassium Level 3.9 Chloride Level 107 Carbon Dioxide Level 18 L Anion Gap 12 Blood Urea Nitrogen 38 H Creatinine 3.83 H Est Glomerular Filtrat Rate mL/min 18 L Glucose Level 110 Calcium Level 8.4 Phosphorus Level 4.5 Magnesium Level 2.6 H Total Bilirubin 18.7 H Direct Bilirubin 16.40 *H Indirect Bilirubin 2.3 H Aspartate Amino Transf (AST/SGOT) 97 H Alanine Aminotransferase (ALT/SGPT) 16 Alkaline Phosphatase 137 H Total Protein 5.4 L Albumin 2.3 L Globulin 3.10 Albumin/Globulin Ratio 0.74 Exam/Review of Systems Exam Vitals Vital Signs Date Temp Pulse Resp B/P (MAP) Pulse Ox O2 O2 Flow FiO2 Time Delivery Rate 08/04/18 90 04:00 08/04/18 98.1 17 122/71 99 03:47 (88) 08/03/18 Room Air 15:02 Intake and Output 08/03/18 08/03/18 08/04/18 1414:59 22:59 06:59 IntakeIntake Total 290 ml 1041.8 ml BalanceBalance 290 ml 1041.8 ml Results Results 24hrs Laboratory Tests Test 08/04/18 04:51 White Blood Count 21.8 H Red Blood Count 2.98 L Hemoglobin 10.3 L Hematocrit 30.3 L Mean Corpuscular Volume 101.7 H Mean Corpuscular Hemoglobin 34.6 H Mean Corpuscular Hemoglobin Concent 34.0 Red Cell Distribution Width 16.1 H Platelet Count 158 Mean Platelet Volume 9.3 Immature Granulocytes % 3.400 H Neutrophils % 81.1 H Lymphocytes % 5.7 L Monocytes % 7.8 Eosinophils % 1.4 Basophils % 0.6 Nucleated Red Blood Cells % 0.0 Immature Granulocytes # 0.750 H Neutrophils # 17.6 H Lymphocytes # 1.2 Monocytes # 1.7 H Eosinophils # 0.3 Basophils # 0.1 Nucleated Red Blood Cells # 0.0 Prothrombin Time 28.8 H Prothrombin Time Ratio 2.3 INR International Normalized Ratio 2.71 Activated Partial Thromboplast Time 56.8 H Sodium Level 137 Potassium Level 3.9 Chloride Level 107 Carbon Dioxide Level 18 L Anion Gap 12 Blood Urea Nitrogen 38 H Creatinine 3.83 H Est Glomerular Filtrat Rate mL/min 18 L Glucose Level 110 Calcium Level 8.4 Phosphorus Level 4.5 Magnesium Level 2.6 H Total Bilirubin 18.7 H Direct Bilirubin 16.40 *H Indirect Bilirubin 2.3 H Aspartate Amino Transf (AST/SGOT) 97 H Alanine Aminotransferase (ALT/SGPT) 16 Alkaline Phosphatase 137 H Total Protein 5.4 L Albumin 2.3 L Globulin 3.10 Albumin/Globulin Ratio 0.74 Medications Medication Current Medications Ceftazidime/ Dextrose 50 ml @ 100 mls/hr Q12 IVPB Last administered on 08/03/18at 21:16; Admin Dose 100 MLS/HR; Start 07/31/18 at 16:30 Octreotide Acetate 1 mg/ Dextrose 100 ml @ 5 mls/hr Q20H IV Last administered on 08/03/18at 16:41; Admin Dose 5 MLS/HR; Start 08/02/18 at 19:30 Sodium Chloride 1,000 ml @ 80 mls/hr [id number] IV Last administered on 08/04/18at 05:33; Admin Dose 80 MLS/HR; Start 08/03/18 at 08:00 JEFFREY KEN DO Aug 04, 2018 07:28
--- NOTE | 2018-08-04 07:32 | NUR ---
EOSS: No acute event overnight. No c/o pain or discomfort. No injury noted or reported. Instructed on strict I/O and to use urinal.
[2018-08-04] MEDS: CEFTAZIDIME 2GM/50 ML (PMX) 50 ML IVPB SCH ×2 (08:27→20:51)
--- NOTE | 2018-08-04 12:17 | PN ---
Date/Time of Note Date/Time of Note DATE: 08/04/18 TIME: 12:07 Assessment/Plan VTE Prophylaxis Risk score (from Ns)>0 risk: 1 SCD applied (from Ns): No SCD contraindicated: low risk/ambulating Pharmacological prophylaxis: NA/contraindicated Pharm contraindication: liver dx Lines/Catheters IV Catheter Type (from [facility]): Peripheral IV Urinary Cath still in place: No Assessment/Plan Assessment/Plan Assessment: Alcoholic liver cirrhosis Hepatorenal syndrome Hyperbilirubinemia Sepsis -rule out SBP Coagulopathy Chronic alcohol abuse Obesity History of recent pneumonia Plan: Continue antibiotics for SBP prophylaxis Repeat MRCP Continue octreotide drip -to improve renal flow Discussed quitting alcohol Recommend EGD to screen for esophageal varices Patient seen in collaboration with Dr. Mohamud Subjective: Patient states his leg swelling has improved with diuresis. He is tolerating diet well. Bilirubin continues to rise. MRCP was inconclusive. Will repeat MRCP to rule out mechanical obstruction. Patient refused paracentesis because he was scared of the procedure. Worsening of renal function . Further recommendations depend on the results of MRCP. Continue supportive treatment. PHYSICAL EXAMINATION: GENERAL: Well developed, well nourished, alert & oriented x 3, in no acute distress SKIN: No lesions, jaundice, no evidence of bleeding diathesis LYMPHATIC: No palpable lymphadenopathy. HEAD: Normocephalic, atraumatic, no tenderness. EYES: Pupils equal reactive to light and accommodation, full extraocular movements, sclera-icteric, no discharge. EARS/NOSE AND THROAT: Ears normal, nose normal, oropharynx normal, oral memb ranes well hydrated without lesions. NECK: Supple, no masses, thyroid normal, JVP within normal limits, carotids normal without bruits. CHEST: Inspection within normal limits. CARDIOVASCULAR: Heart: Regular rate and rhythm, no murmurs, gallops or rubs. Peripheral pulses present within normal limits, no cyanosis, clubbing or edemas. No pulsatile abdominal mass RESPIRATORY: Lungs clear to auscultation and percussion, no wheezing, no rubs GASTROINTESTINAL AND LIVER: Abdomen: Soft, non tenderness, non-distended, umbilical hernias, no masses, no organomegaly, ascites, no guarding, no rebound tenderness, normoactive bowel sounds. Rectal: Deferred. GENITOURINARY: Male genitalia within normal limits. EXTREMITIES: No cyanosis. Lower extremities edema. Result Diagram: 08/04/18 0451 08/04/18 0451 Results 24hrs Laboratory Tests Test 08/04/18 04:48 08/04/18 04:51 Erythrocyte Sedimentation Rate 9 White Blood Count 21.8 H Red Blood Count 2.98 L Hemoglobin 10.3 L Hematocrit 30.3 L Mean Corpuscular Volume 101.7 H Mean Corpuscular Hemoglobin 34.6 H Mean Corpuscular Hemoglobin Concent 34.0 Red Cell Distribution Width 16.1 H Platelet Count 158 Mean Platelet Volume 9.3 Immature Granulocytes % 3.400 H Neutrophils % 81.1 H Lymphocytes % 5.7 L Monocytes % 7.8 Eosinophils % 1.4 Basophils % 0.6 Nucleated Red Blood Cells % 0.0 Immature Granulocytes # 0.750 H Neutrophils # 17.6 H Lymphocytes # 1.2 Monocytes # 1.7 H Eosinophils # 0.3 Basophils # 0.1 Nucleated Red Blood Cells # 0.0 Prothrombin Time 28.8 H Prothrombin Time Ratio 2.3 INR International Normalized Ratio 2.71 Activated Partial Thromboplast Time 56.8 H Sodium Level 137 Potassium Level 3.9 Chloride Level 107 Carbon Dioxide Level 18 L Anion Gap 12 Blood Urea Nitrogen 38 H Creatinine 3.83 H Est Glomerular Filtrat Rate mL/min 18 L Glucose Level 110 Calcium Level 8.4 Phosphorus Level 4.5 Magnesium Level 2.6 H Total Bilirubin 18.7 H Direct Bilirubin 16.40 *H Indirect Bilirubin 2.3 H Aspartate Amino Transf (AST/SGOT) 97 H Alanine Aminotransferase (ALT/SGPT) 16 Alkaline Phosphatase 137 H Total Protein 5.4 L Albumin 2.3 L Globulin 3.10 Albumin/Globulin Ratio 0.74 CC: DOREEN MOHAMUD MD ; Exam/Review of Systems Exam Vitals Vital Signs Date Temp Pulse Resp B/P (MAP) Pulse Ox O2 O2 Flow FiO2 Time Delivery Rate 08/04/18 98.7 92 20 122/73 96 Room Air 11:11 (89) Intake and Output 08/03/18 08/03/18 08/04/18 1515:00 23:00 07:00 IntakeIntake Total 290 ml 1341.8 ml BalanceBalance 290 ml 1341.8 ml Results Results 24hrs Laboratory Tests Test 08/04/18 04:48 08/04/18 04:51 Erythrocyte Sedimentation Rate 9 White Blood Count 21.8 H Red Blood Count 2.98 L Hemoglobin 10.3 L Hematocrit 30.3 L Mean Corpuscular Volume 101.7 H Mean Corpuscular Hemoglobin 34.6 H Mean Corpuscular Hemoglobin Concent 34.0 Red Cell Distribution Width 16.1 H Platelet Count 158 Mean Platelet Volume 9.3 Immature Granulocytes % 3.400 H Neutrophils % 81.1 H Lymphocytes % 5.7 L Monocytes % 7.8 Eosinophils % 1.4 Basophils % 0.6 Nucleated Red Blood Cells % 0.0 Immature Granulocytes # 0.750 H Neutrophils # 17.6 H Lymphocytes # 1.2 Monocytes # 1.7 H Eosinophils # 0.3 Basophils # 0.1 Nucleated Red Blood Cells # 0.0 Prothrombin Time 28.8 H Prothrombin Time Ratio 2.3 INR International Normalized Ratio 2.71 Activated Partial Thromboplast Time 56.8 H Sodium Level 137 Potassium Level 3.9 Chloride Level 107 Carbon Dioxide Level 18 L Anion Gap 12 Blood Urea Nitrogen 38 H Creatinine 3.83 H Est Glomerular Filtrat Rate mL/min 18 L Glucose Level 110 Calcium Level 8.4 Phosphorus Level 4.5 Magnesium Level 2.6 H Total Bilirubin 18.7 H Direct Bilirubin 16.40 *H Indirect Bilirubin 2.3 H Aspartate Amino Transf (AST/SGOT) 97 H Alanine Aminotransferase (ALT/SGPT) 16 Alkaline Phosphatase 137 H Total Protein 5.4 L Albumin 2.3 L Globulin 3.10 Albumin/Globulin Ratio 0.74 Medications Medication Current Medications Ceftazidime/ Dextrose 50 ml @ 100 mls/hr Q12 IVPB Last administered on 08/04/18 08:27; Admin Dose 100 MLS/HR; Start 07/31/18 at 16:30 Octreotide Acetate 1 mg/ Dextrose 100 ml @ 5 mls/hr Q20H IV Last administered on 08/03/18at 16:41; Admin Dose 5 MLS/HR; Start 08/02/18 at 19:30 Sodium Chloride 1,000 ml @ 80 mls/hr [id number] IV Last administered on 08/04/18at 05:33; Admin Dose 80 MLS/HR; Start 08/03/18 at 08:00 KRAIG REESE NP Aug 04, 2018 12:17
[2018-08-04] MEDS: OCTREOTIDE 1 MG in DEXTROSE 5% 95 ML IV SCH (12:30)
--- NOTE | 2018-08-04 13:43 | PN ---
Date/Time of Note Date/Time of Note DATE: 08/04/18 TIME: 13:36 Assessment/Plan VTE Prophylaxis Risk score (from Ns)>0 risk: 1 SCD applied (from [facility] [place]): No SCD contraindicated: low risk/ambulating Pharmacological prophylaxis: NA/contraindicated Pharm contraindication: blood coag disorder Lines/Catheters IV Catheter Type (from [facility]): Peripheral IV Urinary Cath still in place: No Assessment/Plan Problems: (1) Sludge in gallbladder Status: Chronic Comment: Noted on ultrasound in June. I again am extremely concerned that this gentleman may have 2 issues going on instead of just 1. Specifically I am concerned that there is biliary slowdown/obstruction in the face of alcoholic liver disease. Dr. Mohamud has informed me that he will personally review everything with an eye toward making decision on intervention in the morning (2) Ascites due to alcoholic cirrhosis Status: Chronic Comment: Noted and stable at this time (3) Acute kidney injury Status: Acute Comment: Stable but not improving. Result Diagram: 08/04/18 0451 08/04/18 0451 Results 24hrs Laboratory Tests Test 08/04/18 04:48 08/04/18 04:51 Erythrocyte Sedimentation Rate 9 White Blood Count 21.8 H Red Blood Count 2.98 L Hemoglobin 10.3 L Hematocrit 30.3 L Mean Corpuscular Volume 101.7 H Mean Corpuscular Hemoglobin 34.6 H Mean Corpuscular Hemoglobin Concent 34.0 Red Cell Distribution Width 16.1 H Platelet Count 158 Mean Platelet Volume 9.3 Immature Granulocytes % 3.400 H Neutrophils % 81.1 H Lymphocytes % 5.7 L Monocytes % 7.8 Eosinophils % 1.4 Basophils % 0.6 Nucleated Red Blood Cells % 0.0 Immature Granulocytes # 0.750 H Neutrophils # 17.6 H Lymphocytes # 1.2 Monocytes # 1.7 H Eosinophils # 0.3 Basophils # 0.1 Nucleated Red Blood Cells # 0.0 Prothrombin Time 28.8 H Prothrombin Time Ratio 2.3 INR International Normalized Ratio 2.71 Activated Partial Thromboplast Time 56.8 H Sodium Level 137 Potassium Level 3.9 Chloride Level 107 Carbon Dioxide Level 18 L Anion Gap 12 Blood Urea Nitrogen 38 H Creatinine 3.83 H Est Glomerular Filtrat Rate mL/min 18 L Glucose Level 110 Calcium Level 8.4 Phosphorus Level 4.5 Magnesium Level 2.6 H Total Bilirubin 18.7 H Direct Bilirubin 16.40 *H Indirect Bilirubin 2.3 H Aspartate Amino Transf (AST/SGOT) 97 H Alanine Aminotransferase (ALT/SGPT) 16 Alkaline Phosphatase 137 H Total Protein 5.4 L Albumin 2.3 L Globulin 3.10 Albumin/Globulin Ratio 0.74 Subjective 24 Hr Interval Summary Free Text/Dictation Patient is complaining that he would like to get to the bottom of things and he reports his last alcohol consumption was at New Year's Constitutional: no complaints Respiratory: no complaints Cardiovascular: no complaints Gastrointestinal: no complaints Exam/Review of Systems Exam Vitals Vital Signs Date Temp Pulse Resp B/P (MAP) Pulse Ox O2 O2 Flow FiO2 Time Delivery Rate 08/04/18 94 12:01 08/04/18 98.7 20 122/73 96 Room Air 11:11 (89) Intake and Output 08/03/18 08/03/18 08/04/18 1515:00 23:00 07:00 IntakeIntake Total 290 ml 1341.8 ml BalanceBalance 290 ml 1341.8 ml Constitutional: alert, oriented Eyes: icteric Neck: supple, non-tender Respiratory: clear to auscultation, normal air movement Cardiovascular: regular rate and rhythm, nl pulses Gastrointestinal: soft, nl liver, spleen, non-tender Results Results 24hrs Laboratory Tests Test 08/04/18 04:48 08/04/18 04:51 Erythrocyte Sedimentation Rate 9 White Blood Count 21.8 H Red Blood Count 2.98 L Hemoglobin 10.3 L Hematocrit 30.3 L Mean Corpuscular Volume 101.7 H Mean Corpuscular Hemoglobin 34.6 H Mean Corpuscular Hemoglobin Concent 34.0 Red Cell Distribution Width 16.1 H Platelet Count 158 Mean Platelet Volume 9.3 Immature Granulocytes % 3.400 H Neutrophils % 81.1 H Lymphocytes % 5.7 L Monocytes % 7.8 Eosinophils % 1.4 Basophils % 0.6 Nucleated Red Blood Cells % 0.0 Immature Granulocytes # 0.750 H Neutrophils # 17.6 H Lymphocytes # 1.2 Monocytes # 1.7 H Eosinophils # 0.3 Basophils # 0.1 Nucleated Red Blood Cells # 0.0 Prothrombin Time 28.8 H Prothrombin Time Ratio 2.3 INR International Normalized Ratio 2.71 Activated Partial Thromboplast Time 56.8 H Sodium Level 137 Potassium Level 3.9 Chloride Level 107 Carbon Dioxide Level 18 L Anion Gap 12 Blood Urea Nitrogen 38 H Creatinine 3.83 H Est Glomerular Filtrat Rate mL/min 18 L Glucose Level 110 Calcium Level 8.4 Phosphorus Level 4.5 Magnesium Level 2.6 H Total Bilirubin 18.7 H Direct Bilirubin 16.40 *H Indirect Bilirubin 2.3 H Aspartate Amino Transf (AST/SGOT) 97 H Alanine Aminotransferase (ALT/SGPT) 16 Alkaline Phosphatase 137 H Total Protein 5.4 L Albumin 2.3 L Globulin 3.10 Albumin/Globulin Ratio 0.74 Medications Medication Current Medications Ceftazidime/ Dextrose 50 ml @ 100 mls/hr Q12 IVPB Last administered on 08/04/18at 08:27; Admin Dose 100 MLS/HR; Start 07/31/18 at 16:30 Octreotide Acetate 1 mg/ Dextrose 100 ml @ 5 mls/hr Q20H IV Last administered on 08/04/18at 12:30; Admin Dose 5 MLS/HR; Start 08/02/18 at 19:30 Sodium Chloride 1,000 ml @ 80 mls/hr [id number] IV Last administered on 08/04/18at 05:33; Admin Dose 80 MLS/HR; Start 08/03/18 at 08:00 ZIA STEPHEN MD Aug 04, 2018 13:43
--- NOTE | 2018-08-04 19:30 | NUR ---
EOSS: Denies any pain, continue Sandostatin as ordered. All needs attended. Will continue to monitor.
[2018-08-05] VITALS (13 sets, daily range): BP systolic 120–139; BP diastolic 80–88; PULSE 84–97; RESP 16–20
--- NOTE | 2018-08-05 07:58 | NUR ---
EOSS: Sandostatin ongoing. Updated Dr. Ruiz regarding patient's condition this morning. No c/o pain or discomfort. Safety precautions observed.
[2018-08-05] MEDS: OCTREOTIDE 1 MG in DEXTROSE 5% 95 ML IV SCH (08:17)
[2018-08-05] MEDS: CEFTAZIDIME 2GM/50 ML (PMX) 50 ML IVPB SCH (08:19)
[2018-08-05] MEDS ORDERED: ALBUMIN HUMAN 25% 100 ML IV ONE (08:30)
--- NOTE | 2018-08-05 09:12 | PN ---
DATE: 08/05/2018 SUBJECTIVE: The patient is stable. Blood pressures have been stable. The patient's urinary output overnight was approximately 500 mL. OBJECTIVE: VITAL SIGNS: Blood pressure is 125/84, respirations 18, pulse 89, temperature 97.7. HEENT: Head is normocephalic. NECK: Supple. HEART: Regular rate. LUNGS: Show diminished breath sounds at the base. ABDOMEN: Soft, nontender to palpation without rebound or guarding. EXTREMITIES: Negative for clubbing, cyanosis, positive edema. DERMATOLOGIC: No rashes. MUSCULOSKELETAL: No joint effusion. NEUROLOGIC: No change in exam. MEDICATIONS: Reviewed. LABORATORY DATA: White count 21.8, hemoglobin 10.3, platelet count 158. Sodium is 137, potassium 3. 9, BUN 38, creatinine 3.83, phosphorus 4.5. ASSESSMENT AND PLAN: 1. Nonoliguric acute kidney injury with previously normal baseline creatinine. Etiology of acute ki dney injury is secondary to tubular injury. The patient's urinalysis does show evidence of granular casts consistent with tubular injury. However, the patient does likely have underlying cardiorenal h epatorenal pathophysiology. At this point, we would continue current treatment plan. Continue suppo rtive care, renally dose all medicines, continue current antibiotic regimen, treat underlying sepsis. We will continue to monitor closely. No immediate need for renal replacement therapy at this time. We will continue the patient on volume expansion with IV albumin. 2. Hypernatremia secondary to acute kidney injury, improved. Continue to monitor. 3. Anemia. Continue to monitor hemoglobin and hematocrit levels. 4. Mineral bone disorder. Monitor calcium and phosphorus levels. 4. Acute liver failure secondary to acute hepatitis. The patient is decompensated. Continue medica l management. Follow up with GI. 5. Sepsis, possible SBP. Continue current antibiotic regimen. Dictated By: DIONY JACOBSEN DO NR/NTS Conf#: [id number] DID#: [id number] CC: JOSH LOREDO MD; DEIDRE BANKS MD;*EndCC*
[2018-08-05] MEDS ORDERED: PENTOXIFYLLINE (SR) 400 MG TAB PO SCH (09:30)
[2018-08-05] MEDS ORDERED: ERTAPENEM SODIUM 1 GM in SOD CHLORIDE 0.9% 100 ML IVPB SCH (10:30)
--- NOTE | 2018-08-05 10:42 | PN ---
Date/Time of Note Date/Time of Note DATE: 08/05/18 TIME: 10:36 Assessment/Plan VTE Prophylaxis Risk score (from Ns)>0 risk: 1 SCD applied (from Ns): Yes Pharmacological prophylaxis: NA/contraindicated Pharm contraindication: liver dx Lines/Catheters IV Catheter Type (from [facility]): Peripheral IV Urinary Cath still in place: No Assessment/Plan Hospital Course SUBJECTIVE: Lying in bed comfortably. Denies pruritus, abdominal pain, nausea, vomiting, diarrhea. OBJECTIVE: Vital signs-see below PHYSICAL EXAM: Constitutional: Well-developed, adequately built, lying in bed comfortably. Psych: nl mood/affect, no complaints Head: atraumatic, normocephalic Eyes: Icteric+ sclera. ENMT: mucosa pink and moist, nl external ears & nose Neck: non-tender, supple Respiratory: clear to auscultation, normal air movement Cardiovascular: nl pulses, regular rate and rhythm Gastrointestinal: non-tender, soft, bowel sounds active in all 4 quadrants. Musculoskeletal/extremities: Anasarca + annemarie LEs. nlmotor strength equal bilaterally, no focal deficit. Normal pulses Neurological: Alert oriented 3,nl speech, nl strength Skin: +Jaundiced. ASSESSMENT/PLAN: Very unfortunate 42-year old male with a history of recently diagnosed advanced alcoholic hepatitis, here with worsening lower extremity swelling, abdominal distention/pain and worsening jaundice, found to have transaminitis/hyperbilirubinemia with sepsis 1. Sepsis, most likely culprit is possible acute cholangitis. -White count persists..... -Change antibiotic to ertapenem -Cultures negative to date so far. Patient with not significant ascites for paracentesis. 2. Possible Acute cholangitis 2/2 alcoholic hepatitis -MRCP unrevealing secondary to artifacts=> 3rd admits in a row for same reasons=>GI on board, consider ERCP evaluation. -Treatment as above -Alcohol cessation advised 3.Anasarca with severe alcoholic hepatitis. -Status post albumin/diuretics -Continue supportive care. 4. Severe Alcoholic hepatitis with coagulopathy/hyperbilirubinemia/transaminitis -Decompensated -DF=87=> may require glucocorticoid therapy, however in light of suspecting possible infection, would hold off and will try pentoxifylline renally dose. -Cessation advised. -We will put on lactulose for prophylaxis. 5. Acute kidney injury likely secondary to ATN/possible hepatorenal syndrome -Management per nephrology. -Renally dose medications and monitor renal function. 6. Anemia of liver disease -Stable H&H. Monitor. DVT prophylaxis: SCDs/ambulation PUD prophylaxis: We will start Protonix for stress ulcer prevention. Diet: Renal/2 g sodium diet CODE STATUS: Full code Disposition: Continue current medical management. We will follow-up GI recommendations. Patient was seen in collaboration with Result Diagram: 08/04/181 08/04/18 0451 Results 24hrs Laboratory Tests Test 08/05/18 10:03 Hepatitis B Surface Antigen Pending Hepatitis B Core Total Antibody Pending Hepatitis C Antibody Pending Exam/Review of Systems Exam Vitals Vital Signs Date Temp Pulse Resp B/P (MAP) Pulse Ox O2 O2 Flow FiO2 Time Delivery Rate 08/05/18 88 08:01 08/05/18 97.7 19 125/84 97 07:31 (98) 08/04/18 Room Air 15:28 Intake and Output 08/04/18 08/04/18 08/05/18 1515:00 23:00 07:00 IntakeIntake Total 58.2 ml 1350 ml 960 ml OutputOutput Total 200 ml 200 ml 450 ml BalanceBalance -141.8 ml 1150 ml 510 ml Results Results 24hrs Laboratory Tests Test 08/05/18 10:03 Hepatitis B Surface Antigen Pending Hepatitis B Core Total Antibody Pending Hepatitis C Antibody Pending Medications Medication Current Medications Ceftazidime/ Dextrose 50 ml @ 100 mls/hr Q12 IVPB Last administered on 08/05/18 at 08:19; Admin Dose 100 MLS/HR; Start 07/31/18 at 16:30 Octreotide Acetate 1 mg/ Dextrose 100 ml @ 5 mls/hr Q20H IV Last administered on 08/05/18at 08:17; Admin Dose 5 MLS/HR; Start 08/02/18 at 19:30 Midodrine (Proamatine) 5 mg BID@09,17 PO ; Start 08/05/18 at 09:00 Pantoprazole (Protonix Iv) 40 mg BID@06,18 IV ; Start 08/05/18 at 18:00 Pentoxifylline (Trental) 400 mg DAILY PO ; Start 08/05/18 at 10:30 ZAMZAM FREEMAN NP Aug 05, 2018 10:42
[2018-08-05] MEDS: MIDODRINE 2.5 MG TAB PO SCH ×2 (10:57→17:32)
[2018-08-05] MEDS: PENTOXIFYLLINE (SR) 400 MG TAB PO SCH (10:57)
[2018-08-05] MEDS ORDERED: LACTULOSE 30ML CUP PO PRN (11:00)
[2018-08-05] MEDS ORDERED: ERTAPENEM SODIUM 0.5 GM in SOD CHLORIDE 0.9% 100 ML IVPB SCH (12:00)
[2018-08-05] MEDS: ERTAPENEM SODIUM 0.5 GM in SOD CHLORIDE 0.9% 100 ML IVPB SCH (12:26)
--- NOTE | 2018-08-05 16:19 | PN ---
Date/Time of Note Date/Time of Note DATE: 08/05/18 TIME: 16:13 Assessment/Plan VTE Prophylaxis Risk score (from Ns)>0 risk: 1 SCD applied (from Nsg): Yes Pharmacological prophylaxis: other (scds) Lines/Catheters IV C[facility]ter Type (from [facility]): Peripheral IV Urinary Cath still in place: No Assessment/Plan Hospital Course Assessment/Plan Assessment: Alcoholic liver cirrhosis Direct hyperbilirubinemia Hepatorenal syndrome Sepsis -rule out SBP Coagulopathy Chronic alcohol abuse Obesity History of recent pneumonia Plan: N.p.o. after 08/06/18 0500 Plan for ERCP tomorrow INR 2.71 - will order 2 units FFP and vitamin K today and in am- will recheck INR tomorrow at 1000 Continue antibiotics for SBP prophylaxis Continue octreotide drip -to improve renal flow Patient seen in collaboration with Dr. Mohamud Subjective: No over night events. Pt states he feels well currently, reviewed results of MRCP Discussed plan for ERCP, reviewed risk/benefits/alternatives patient verbalized understanding and is agreeable to procedure. PHYSICAL EXAMINATION: GENERAL: Well developed, well nourished, alert & oriented x 3, in no acute distress SKIN: No lesions, jaundice, no evidence of bleeding diathesis EYES: Pupils equal reactive to light and accommodation, full extraocular movements, sclera-icteric, no discharge. EARS/NOSE AND THROAT: Ears normal, nose normal, oropharynx normal, oral membran es well hydrated without lesions. NECK: Supple, no masses, thyroid buster CHEST: Inspection within normal limits. CARDIOVASCULAR: Heart: Regular rate and rhythm, no murmurs RESPIRATORY: Lungs clear to auscultation and percussion, no wheezing, no rubs GASTROINTESTINAL AND LIVER: Abdomen: Soft, non tenderness, non-distended, umbilical hernias, no masses, no organomegaly, ascites, no guarding, no rebound tenderness, normoactive bowel sounds. Rectal: Deferred. GENITOURINARY: Male genitalia within normal limits. EXTREMITIES: No cyanosis. Lower extremities edema. Result Diagram: 08/04/181 08/04/18 0451 Results 24hrs Laboratory Tests Test 08/05/18 10:03 08/05/18 12:25 Hepatitis B Surface Antigen NEGATIVE Hepatitis B Core Total Antibody NEGATIVE Hepatitis C Antibody NEGATIVE Ammonia 49 #H Exam/Review of Systems Exam Vitals Vital Signs Date Temp Pulse Resp B/P (MAP) Pulse Ox O2 O2 Flow FiO2 Time Delivery Rate 08/05/18 97.7 87 19 132/88 95 15:38 (103) 08/04/18 Room Air 15:28 Intake and Output 08/04/18 08/04/18 08/05/18 1515:00 23:00 07:00 IntakeIntake Total 58.2 ml 1350 ml 960 ml OutputOutput Total 200 ml 200 ml 450 ml BalanceBalance -141.8 ml 1150 ml 510 ml Results Results 24hrs Laboratory Tests Test 08/05/18 10:03 08/05/18 12:25 Hepatitis B Surface Antigen NEGATIVE Hepatitis B Core Total Antibody NEGATIVE Hepatitis C Antibody NEGATIVE Ammonia 49 #H Medications Medication Current Medications Octreotide Acetate 1 mg/ Dextrose 100 ml @ 5 mls/hr Q20H IV Last administered on 08/05/18at 08:17; Admin Dose 5 MLS/HR; Start 08/02/18 at 19:30 Midodrine (Proamatine) 5 mg BID@09,17 PO Last administered on 08/05/18at 10:57; Admin Dose 5 MG; Start 08/05/18 at 09:00 Pantoprazole (Protonix Iv) 40 mg BID@06,18 IV ; Start 08/05/18 at 18:00 Pentoxifylline (Trental) 400 mg DAILY PO Last administered on 08/05/18at 10:57; Admin Dose 400 MG; Start 08/05/18 at 10:30 Lactulose (Enulose) 20 gm DAILY PRN PO CONSTIPATION; Start 08/05/18 at 11:00 Ertapenem 0.5 gm/ Sodium Chloride 100 ml @ 200 mls/hr Q24H IVPB Last administered on 08/05/18at 12:26; Admin Dose 200 MLS/HR; Start 08/05/18 at 12:00 BUFFY FAN Aug 05, 2018 16:19
[2018-08-05] MEDS: PHYTONADIONE (1 MG/ML PO SYG) PO SCH (17:31)
[2018-08-05] MEDS: PANTOPRAZOLE 40 MG INJ IV SCH (17:32)
--- NOTE | 2018-08-05 18:40 | NUR ---
EOSS: Patient to have ERCP tomorrow with Dr. Mohamud. Consent signed. NPO after Trae on going as ordered. FFP tonight per order. All need attended. Will continue to monitor.
--- NOTE | 2018-08-05 19:30 | NUR ---
pt will have 2 units of fresh frozen plasma as per endorsed by outgoing RN. called blood bank and they have 2 units available.
--- NOTE | 2018-08-05 21:30 | NUR ---
first unit of FFP started .
[2018-08-06] VITALS (22 sets, daily range): BP systolic 124–143; BP diastolic 81–94; PULSE 79–104; RESP 17–20
[2018-08-06] MEDS: OCTREOTIDE 1 MG in DEXTROSE 5% 95 ML IV SCH (04:51)
[2018-08-06] MEDS: PANTOPRAZOLE 40 MG INJ IV SCH ×2 (05:15→17:49)
--- NOTE | 2018-08-06 05:50 | NUR ---
eoss; pt is resting comfortably denies acute discomfort.abdomen remained distended and color is jaundice. NPO since MN for ERCP today. had 2 units of FFP last night carmelo well. consent is signed for ERCP. on sandostatin drip at 5ml/h infusing to right arm. awaiting labs this am . will continue to monitor pt.
[2018-08-06] MEDS ORDERED: LIDOCAINE 2% (SDV) 5 ML INJ ONE (07:00)
[2018-08-06] MEDS: PHYTONADIONE (1 MG/ML PO SYG) PO SCH (07:57)
[2018-08-06] MEDS: PENTOXIFYLLINE (SR) 400 MG TAB PO SCH (07:58)
[2018-08-06] MEDS: MIDODRINE 2.5 MG TAB PO SCH ×2 (07:58→17:00)
[2018-08-06] MEDS ORDERED: ALBUMIN HUMAN 25% 50 ML IV ONE (08:00)
--- NOTE | 2018-08-06 08:00 | PN ---
DATE: 08/06/2018 SUBJECTIVE: The patient is stable. The patient is pending ERCP possibly today. No other acute even ts noted. No hemoptysis, hematemesis or hematochezia. The patient's urinary output has been minimal . OBJECTIVE: VITAL SIGNS: Blood pressure is 124/85, respirations 20, pulse 88, temperature 97.7. HEENT: Head is normocephalic. NECK: Supple. HEART: Regular rate. LUNGS: Show diminished breath sounds at the base. ABDOMEN: Soft, nontender to palpation. No rebound or guarding. EXTREMITIES: Negative for clubbing, cyanosis. Positive edema. DERMATOLOGIC: No rashes. MUSCULOSKELETAL: No joint effusion. NEUROLOGIC: No change in exam. MEDICATIONS: Reviewed. LABORATORY DATA: Shows sodium 139, potassium 3.9, chloride 115, BUN 40, creatinine 3.98. White coun t is 24.8, hemoglobin 10.1, platelet count is 130. ASSESSMENT AND PLAN: 1. Nonoliguric acute kidney injury with previously known baseline creatinine. Etiology of acute kid luis felipe injury is multifactorial secondary to tubular injury in conjunction with underlying hepatorenal p athophysiology. The patient currently is receiving therapy for hepatorenal on octreotide, Midodrine and albumin. We would continue current treatment plan. Continue antibiotic therapy to treat the pos sibility of underlying sepsis. We will monitor closely. The patient remains in injury phase of acut e kidney injury. There is no immediate need for renal placement therapy at this time. However, ab l function should continue to decline. The patient will likely require dialysis. 2. Anemia. Continue to monitor hemoglobin and hematocrit levels. 3. Mineral bone disorder, monitor calcium and phosphorus levels. 4. Metabolic acidosis secondary to acute kidney injury. Continue to monitor. 5. Acute liver failure secondary to acute hepatitis. The patient is compensated. Being followed by GI. We will continue to monitor. 6. Systemic inflammatory response syndrome, possible sepsis. Continue current antibiotic therapy. Dictated By: DIONY JACOBSEN DO NR/NTS Conf#: [id number] DID#: [id number] CC: DEIDRE BANKS MD; JOSH LOREDO MD;*EndCC*
[2018-08-06] MEDS: LACTULOSE 30ML CUP PO SCH ×2 (09:12→21:15)
--- NOTE | 2018-08-06 10:23 | PN ---
Date/Time of Note Date/Time of Note DATE: 08/06/18 TIME: 10:18 Assessment/Plan VTE Prophylaxis Risk score (from Ns)>0 risk: 1 SCD applied (from Ns): Yes Pharmacological prophylaxis: NA/contraindicated Pharm contraindication: liver dx Lines/Catheters IV C[facility]ter Type (from [facility]): Peripheral IV Urinary Cath still in place: No Assessment/Plan Hospital Course SUBJECTIVE: Lying in bed comfortably. Denies pruritus, abdominal pain, nausea, vomiting, diarrhea. OBJECTIVE: Vital signs-see below PHYSICAL EXAM: Constitutional: Well-developed, adequately built, lying in bed comfortably. Psych: nl mood/affect, no complaints Head: atraumatic, normocephalic Eyes: Icteric+ sclera. ENMT: mucosa pink and moist, nl external ears & nose Neck: non-tender, supple Respiratory: clear to auscultation, normal air movement Cardiovascular: nl pulses, regular rate and rhythm Gastrointestinal: non-tender, soft, bowel sounds active in all 4 quadrants. Musculoskeletal/extremities: Anasarca + annemarie LEs. nlmotor strength equal bilaterally, no focal deficit. Normal pulses Neurological: Alert oriented 3,nl speech, nl strength Skin: +Jaundiced. ASSESSMENT/PLAN: Very unfortunate 42-year old male with a history of recently diagnosed advanced alcoholic hepatitis, here with worsening lower extremity swelling, abdominal distention/pain and worsening jaundice, found to have transaminitis/hyperbilirubinemia with sepsis 1. Sepsis, most likely culprit is possible acute cholangitis. -White count persists..... -cont. ertapenem,add Rifaximin -Cultures negative to date so far. Patient with not significant ascites for paracentesis. -Recommend ID evaluation. 2. Possible Acute cholangitis 2/2 alcoholic hepatitis -MRCP unrevealing secondary to artifacts=> 3rd admits in a row for same reasons=>plan is ERCP evaluation today. -Continue medical management as outlined in #1 and follow-up GI recommendations. -Alcohol cessation advised 3.Anasarca with severe alcoholic hepatitis. -Status post albumin/diuretics -Continue supportive care. 4. Severe Alcoholic hepatitis with coagulopathy/hyperbilirubinemia/transaminitis -Decompensated -DF=87=> on pentoxifylline renally dose. -Cessation advised. -Continue lactulose prophylaxis and add rifaximin. 5. Acute kidney injury likely secondary to ATN/possible hepatorenal syndrome -Management per nephrology. -Renally dose medications and monitor renal function. 6. Anemia of liver disease -Stable H&H. Monitor. DVT prophylaxis: SCDs/ambulation PUD prophylaxis: Protonix Diet: Renal/2 g sodium diet CODE STATUS: Full code Disposition: Continue current medical management. Follow-up GI and renal recommendations. Patient was seen in collaboration with Result Diagram: 08/06/1845 08/06/18544 Results 24hrs Laboratory Tests Test 08/05/18 12:25 08/06/18 05:45 Ammonia 49 #H White Blood Count 24.8 H Red Blood Count 2.93 L Hemoglobin 10.1 L Hematocrit 29.7 L Mean Corpuscular Volume 101.4 H Mean Corpuscular Hemoglobin 34.5 H Mean Corpuscular Hemoglobin Concent 34.0 Red Cell Distribution Width 16.2 H Platelet Count 130 L Mean Platelet Volume 8.9 Immature Granulocytes % 3.200 H Neutrophils % 83.6 H Lymphocytes % 5.5 L Monocytes % 6.1 Eosinophils % 1.2 Basophils % 0.4 Nucleated Red Blood Cells % 0.0 Immature Granulocytes # 0.800 H Neutrophils # 20.7 H Lymphocytes # 1.4 Monocytes # 1.5 H Eosinophils # 0.3 Basophils # 0.1 Nucleated Red Blood Cells # 0.0 Sodium Level 139 Potassium Level 3.9 Chloride Level 115 H Carbon Dioxide Level 19 L Anion Gap 5 Blood Urea Nitrogen 40 H Creatinine 3.98 H Est Glomerular Filtrat Rate mL/min 17 L Glucose Level 103 Calcium Level 8.8 Phosphorus Level 4.7 Magnesium Level 2.4 Exam/Review of Systems Exam Vitals Vital Signs Date Temp Pulse Resp B/P (MAP) Pulse Ox O2 O2 Flow FiO2 Time Delivery Rate 08/06/18 94 08:01 08/06/18 97.7 20 124/84 95 Room Air 07:37 (97) Intake and Output 08/05/18 08/05/18 08/06/18 1515:00 23:00 07:00 IntakeIntake Total 570 ml 450 ml 150 ml OutputOutput Total 200 ml BalanceBalance 570 ml 250 ml 150 ml Results Results 24hrs Laboratory Tests Test 08/05/18 12:25 08/06/18 05:45 Ammonia 49 #H White Blood Count 24.8 H Red Blood Count 2.93 L Hemoglobin 10.1 L Hematocrit 29.7 L Mean Corpuscular Volume 101.4 H Mean Corpuscular Hemoglobin 34.5 H Mean Corpuscular Hemoglobin Concent 34.0 Red Cell Distribution Width 16.2 H Platelet Count 130 L Mean Platelet Volume 8.9 Immature Granulocytes % 3.200 H Neutrophils % 83.6 H Lymphocytes % 5.5 L Monocytes % 6.1 Eosinophils % 1.2 Basophils % 0.4 Nucleated Red Blood Cells % 0.0 Immature Granulocytes # 0.800 H Neutrophils # 20.7 H Lymphocytes # 1.4 Monocytes # 1.5 H Eosinophils # 0.3 Basophils # 0.1 Nucleated Red Blood Cells # 0.0 Sodium Level 139 Potassium Level 3.9 Chloride Level 115 H Carbon Dioxide Level 19 L Anion Gap 5 Blood Urea Nitrogen 40 H Creatinine 3.98 H Est Glomerular Filtrat Rate mL/min 17 L Glucose Level 103 Calcium Level 8.8 Phosphorus Level 4.7 Magnesium Level 2.4 Medications Medication Current Medications Octreotide Acetate 1 mg/ Dextrose 100 ml @ 5 mls/hr Q20H IV Last administered on 08/06/18at 04:51; Admin Dose 5 MLS/HR; Start 08/02/18 at 19:30 Midodrine (Proamatine) 5 mg BID@09,17 PO Last administered on 08/06/18 07:58; Admin Dose 5 MG; Start 08/05/18 at 09:00 Pantoprazole (Protonix Iv) 40 mg BID@06,18 IV Last administered on 08/06/18 05:15; Admin Dose 40 MG; Start 08/05/18 at 18:00 Pentoxifylline (Trental) 400 mg DAILY PO Last administered on 08/06/18 07:58; Admin Dose 400 MG; Start 08/05/18 at 10:30 Ertapenem 0.5 gm/ Sodium Chloride 100 ml @ 200 mls/hr Q24H IVPB Last administered on 08/05/18 12:26; Admin Dose 200 MLS/HR; Start 08/05/18 at 12:00 Indomethacin (Indocin Supp) 100 mg ONCE ONCE UT ; Start 08/06/18 at 16:30; Stop 08/06/18 at 16:31 Phytonadione (Vitamin K) 10 mg DAILY PO Last administered on 2/12/19at 07:57; Admin Dose 10 MG; Start 08/05/18 at 16:30; Stop 08/06/18 at 11:00 Lactulose (Enulose) 20 gm BID PO Last administered on 08/06/18at 09:12; Admin Dose 20 GM; Start 08/06/18 at 09:00 Rifaximin (Xifaxan) 550 mg BID PO ; Start 08/06/18 at 09:00 ZAMZAM FREEMAN NP Aug 06, 2018 10:23
[2018-08-06] MEDS: RIFAXIMIN 550 MG TAB PO SCH ×2 (10:31→21:15)
[2018-08-06] MEDS: ERTAPENEM SODIUM 0.5 GM in SOD CHLORIDE 0.9% 100 ML IVPB SCH (12:13)
--- NOTE | 2018-08-06 12:54 | CONS ---
DATE OF ADMISSION: 07/31/2018 DATE OF CONSULTATION: 08/06/2018 TYPE OF CONSULTATION: Infectious Disease. REASON FOR CONSULTATION: Antibiotic management. HISTORY OF PRESENT ILLNESS: Evy Calvo is a 42-year-old male who presents to the emergency room with complaints of abdominal pain and swelling. He is a poor historian. He wa s seen on 07/30/2018 with similar complaints and for recheck of questionable pneumonia. He also had evidence of significant worsening of renal failure and liver failure. He had an elevated white count and questionable pneumonia. He was started on antibiotics, but left against medical advice. He com es now wanting to be admitted. He reports abdominal swelling with no specific abdominal pain. On ad mission, his white count is 27.5, H and H of 12.1 and 35.6, platelet count 260,000. BUN and creatini ne 31/2.90. His past problems include alcohol abuse. He was a heavy drinker until 2018 and then he stopped drinking, according to the patient. He has had abdominal pain and sore throat for the last 2 days. On admission, he appeared chronically ill. HOSPITAL COURSE: His urinalysis was negative for nitrite and leukocyte esterase. The patient was st arted on Zosyn. Renal ultrasound: No evidence of urolithiasis or obstructive uropathy or renal mass . Echogenic kidneys compatible with renal medical disease, and ascites and hepatosplenomegaly. His liver was 22 cm and his spleen was 17 cm. Diffuse echogenicity of the kidneys consistent with medica l renal disease. A gallbladder ultrasound showed hepatosplenomegaly with steatosis, diffusely thicke genesis gallbladder wall, mild free fluid. An MRI, chest x-ray on 07/31/2018 showed mild bibasilar atele ctatic changes, possible small left pleural effusion. An abdominal MRI showed hepatosplenomegaly aga in, small amount of ascites, nonspecific diffuse gallbladder wall edema, diffuse subcutaneous edema a ppearing since previous MRI. The patient was seen by Dr. Ruiz for renal. He felt the patient had nonoliguric acute kidney injury with a BUN and creatinine of 31/2.9. Etiology of acute kidney injur y is concerning for hepatorenal syndrome, and possibly due to spontaneous bacterial peritonitis versu s sepsis. The patient was seen for GI, noted to have alcoholic liver disease, hepatorenal syndrome, hyperbilirubinemia, sepsis, rule out SBP. Continue antibiotics, start octreotide drip to improve hussain al flow. He was advised to quit alcohol. The patient, I believe, was placed on ceftazidime 1 gm q.1 2. The patient was again seen by GI on the . He states his leg swelling is improved with diures is. MRCP was inconclusive. White count was 21.8. Currently, the patient is lying in bed comfortabl y. PAST MEDICAL HISTORY: Operations as outlined. FAMILY HISTORY: Noncontributory. SOCIAL HISTORY: He drank heavily until the end of 2018. He does not smoke, drink or abuse drugs at the present time: PHYSICAL EXAMINATION: GENERAL: He is a well-developed, well-nourished male lying in bed. VITAL SIGNS: Stable. He is afebrile. SKIN: Without generalized rash. His skin is icteric. His eyes are icteric. HEENT: Otherwise, within normal limits. NECK: Supple. LYMPH NODES: None palpable. CHEST: Decreased breath sounds at the bases. HEART: Without murmur or gallop. ABDOMEN: Soft, nontender, without organosplenomegaly or masses. EXTREMITIES: He has anasarca, bilateral lower extremity edema. RECTAL AND GENITAL: Deferred. NEUROLOGICAL: No focal neurological abnormality. IMPRESSION: The patient has advanced alcoholic hepatitis. He has sepsis, possibly acute cholangitis . White count persists, and there is not significant ascites for paracentesis. The patient currentl y has a white count of 24.8, BUN and creatinine 40/3.98, consistent with hepatorenal syndrome. Blood and urine cultures are negative. The patient is currently on ertapenem and rifaximin 550 mg b.i.d. I will dictate my findings to the hospitalist and the aforementioned consultants. We will continue h im on ertapenem for the time being. He could have spontaneous bacterial peritonitis or alcoholic hep atitis or both. He could have cholangitis, difficult to evaluate. I will dictate my findings, as no guy, to the hospitalist and to the assorted consultants. Dictated By: SARITA DAVEY MD, JD/BLANCA Conf#: [id number] DID#: [id number] CC: JOSH LOREDO MD;*EndCC*
--- NOTE | 2018-08-06 14:22 | NUR ---
PT/INR results called in to [facility] Fitzpatrick, for Dr. Mohamud. No new orders received.
[2018-08-06] MEDS ORDERED: INDOMETHACIN 50 MG SUPP PR ONE (16:30)
--- NOTE | 2018-08-06 18:00 | PREAC ---
Date/Time of Note Date/Time of Note DATE: 08/06/18 TIME: 17:58 Anesthesia Eval and Record Evaluation Time Pre-Procedure Interview DATE: 08/06/18 TIME: 17:58 Age 42 Sex male NPO: 8 hrs Preoperative diagnosis BILIARY COLIC Planned procedure ERCP Past Medical History Past Medical History: Includes Cardio: HTN Hepatic: Alcohol abuse, Cirrhosis, Other (HEAPTO RENAL SYNDROME) GI: Obesity Heme: Anemia, Coagulation disorder Surgery & Anesthesia Issues No known issue Meds Anticoagulation: No Beta Liliana within 24 hr: No Reason Beta Liliana not given: Pt. not on B-Liliana Active Scripts Pentoxifylline* (Pentoxifylline*) 400 Mg Tablet.sa, 400 MG PO TID for 25 Days, # 75 TAB Prov:DONOVAN LUNA 07/12/18 Discontinued Scripts Levofloxacin* (Levofloxacin*) 750 Mg Tablet, 750 MG PO DAILY for 5 Days, #5 TAB Prov:DONOVAN LUNA 07/23/18 Current Medications Octreotide Acetate 1 mg/ Dextrose 100 ml @ 5 mls/hr Q20H IV Last administered on 08/06/18at 04:51; Admin Dose 5 MLS/HR; Start 08/02/18 at 19:30 Midodrine (Proamatine) 5 mg BID@09,17 PO Last administered on 08/06/18at 07:58; Admin Dose 5 MG; Start 08/05/18 at 09:00 Pantoprazole (Protonix Iv) 40 mg BID@06,18 IV Last administered on 08/06/18at 17:49; Admin Dose 40 MG; Start 08/05/18 at 18:00 Pentoxifylline (Trental) 400 mg DAILY PO Last administered on 08/06/18at 07:58; Admin Dose 400 MG; Start 08/05/18 at 10:30 Ertapenem 0.5 gm/ Sodium Chloride 100 ml @ 200 mls/hr Q24H IVPB Last administered on 08/06/18at 12:13; Admin Dose 200 MLS/HR; Start 08/05/18 at 12:00 Lactulose (Enulose) 20 gm BID PO Last administered on 08/06/18 09:12; Admin Dose 20 GM; Start 08/06/18 at 09:00 Rifaximin (Xifaxan) 550 mg BID PO Last administered on 08/06/18at 10:31; Admin Dose 550 MG; Start 08/06/18 at 09:00 Meds reviewed: Yes Allergies Coded Allergies: No Known Allergy (Unverified , 07/08/18) Allergies Reviewed: Yes Labs/Studies Labs Reviewed: Reviewed by anesthesiologist Result Diagram: 08/06/18 0545 08/06/18 0545 Laboratory Tests 08/06/18 05:45 test: N/A Studies: ECG, CXR Pre-procedure Exam Last vitals Vital Signs Date Temp Pulse Resp B/P (MAP) Pulse Ox O2 O2 Flow FiO2 Time Delivery Rate 08/06/18 102 16:01 08/06/18 98.0 18 133/93 92 Room Air 15:34 (106) Airway: Adequate mouth opening, Adequate thyromental dist Mallampati: Mallampati II Teeth: Normal Lung: Normal Heart: Normal ASA Physical Status ASA physical status: 3 Emergency: None Planned Anesthetic General/MAC: ETT Planned Pain Management Parenteral pain med Pre-operative Attestations Prior to commencing anesthesia and surgery, the patient was re-evaluated, there was verification of: *The patient's identity *The results of appropriate recent lab work and preoperative vital signs *The above evaluation not changing prior to induction *Anesthetic plan, risk benefits, alternative and complications discussed with patient/family; questions answered; patient/family understands, accepts and wishes to proceed. MARILEE JOHNSON Aug 06, 2018 18:00
--- NOTE | 2018-08-06 18:05 | NUR ---
EOSS: Pt stable. IV's intact. Octreotide gtt continues at 5ml/hr. All needs met during shift. Pt turned and ambulated by self entire shift. Steady gait.
--- NOTE | 2018-08-06 18:05 | NUR ---
Sent to PACU for ERCP prep. Went with shelter monitor and surgery transport. Pt stable. Consent signed and in chart.
[2018-08-06] MEDS ORDERED: IOHEXOL 300MG/ML 30 ML BTL ONE (18:29)
[2018-08-06] MEDS ORDERED: PROPOFOL 20 ML ONE (18:52)
--- NOTE | 2018-08-06 18:56 | HPN ---
Date/Time of Note Date/Time of Note DATE: 08/06/18 TIME: 18:55 Interval H&P Admission Note Pt. seen H&P reviewed: Systems changes noted below Concern regarding possibility of biliary obstruction/cholangitis DOREEN YORK MD Aug 06, 2018 18:55
[2018-08-06] MEDS ORDERED: SUGAMMADEX SODIUM 200 MG/2 ML VIAL IV ONE (19:17)
[2018-08-06] MEDS ORDERED: ROCURONIUM 50 MG INJ ONE (19:17)
--- NOTE | 2018-08-06 19:21 | OPPN ---
Date/Time of Note Date/Time of Note DATE: 08/06/18 TIME: 19:19 Proc Note GI Procedure Date 08/06/18 Indication: diagnostic Pre-procedure Diagnosis Jaundice, rule out extrahepatic biliary obstruction Post-procedure Diagnosis Impression: Normal ERCP. Plan: Continue present regimen. The jaundice and elevated white blood cell count very likely represent alcoholic hepatitis Procedure Performed: ERCP Surgeon DOREEN YORK MD See signature line Rent Collector none Anesthesia Type: general Anesthesiologist: MARILEE JOHNSON Tourniquet Time none EBL none Transfusion required none Biopsy 1: None Grafts/Implants none Tubes/Drains none Complication(s) none Disposition: PACU Procedure Description After informed consent, with the patient/relatives understanding the procedure, its indications, potential risks and complications, including but not limited to: allergic reaction, bleeding, perforation or infection, and after all pertinent questions were answered to the patients satisfaction, the patient/relatives signed witnessed informed consent. Following this, premedication was administered slowly IV push under careful cardiovascular and respiratory monitoring with pulse oximetry, automatic blood pressure, and surveillance monitor. Once the sedative effect was achieved the patient was place in the prone position in the radiology special procedures suite; the side viewing panendoscope was introduced and advanced under visual control. Careful examination of the upper gastrointestinal tract, both on insertion as well as withdrawal of the instrument disclosed the following findings: Esophagus: The mucosa of the entire appears within normal limits. There is no evidence of esophagitis, varices, neoplasm or stricture. No Hiatal Hernia identified. Stomach: Upon entrance to the stomach air was insufflated, the gastric kirby distended normally, the mucosa of the fundus, body and antrum of the stomach was carefully examined both head-on and on retroflexion, and shows no abnormalities. There is no evidence of gastritis, ulcers, or neoplasm. Pylorus: The pylorus appears patent and within normal limits, with no evidence of gastric outlet obstruction. Duodenum: The duodenal mucosa was carefully examined in the duodenal bulb as well as the second portion of the duodenum and appears unremarkable with no evidence of duodenitis, ulcer or neoplasm. Ampulla of vater: The ampulla of Vater was identified and carefully examined appearing within normal limits. Cannulation: At this point cannulation was accomplished with the following fluoroscopic findings: Pancreatogram: Avoided Cholangiogram: Normal cholangiogram The instrument was then withdrawn the patient tolerated the procedure well and was transfer out of the endoscopy suite awake, and in good condition to continue to recover under observation. Copies To: CC: DOREEN YORK MD ; DOREEN YORK MD Aug 06, 2018 19:21
[2018-08-06] MEDS ORDERED: DIPHENHYDRAMINE 50 MG INJ IV PRN (19:30)
[2018-08-06] MEDS ORDERED: EPHEDrine SULFATE 50 MG/5 ML SYG IV PRN (19:30)
[2018-08-06] MEDS ORDERED: METOCLOPRAMIDE 10 MG INJ IV PRN (19:30)
[2018-08-06] MEDS ORDERED: ONDANSETRON 4 MG INJ IV PRN (19:30)
[2018-08-06] MEDS ORDERED: FENTAnyl 50 MCG/ML VIAL IV PRN ×2 (19:30)
[2018-08-06] MEDS ORDERED: HYDROmorphONE 1 MG/5 ML IV SYRINGE IV PRN ×2 (19:30)
[2018-08-06] MEDS ORDERED: LABETALOL HCL 20MG INJ IV PRN (19:30)
[2018-08-06] MEDS ORDERED: MEPERIDINE 25 MG INJ IV PRN (19:30)
[2018-08-06] MEDS ORDERED: hydrALAzine 20 MG INJ IV PRN (19:30)
[2018-08-06] MEDS ORDERED: ALBUTEROL 0.083% (NEB) 2.5 MG/3 ML AMP HHN PRN (19:30)
--- NOTE | 2018-08-06 19:30 | PAC ---
Date/Time of Note Date/Time of Note DATE: 08/06/18 TIME: 19:30 Post-Anesthesia Notes Post-Anesthesia Note Last documented vital signs Vital Signs Date Temp Pulse Resp B/P (MAP) Pulse Ox O2 O2 Flow FiO2 Time Delivery Rate 08/06/18 102 1930 08/06/18 98.0 18 133/93 92 Room Air 1930 (106) Activity: WNL Respiratory function: WNL Cardiovascular function: WNL Mental status: Baseline Pain reasonably controlled: Yes Hydration appropriate: Yes Nausea/Vomiting absent: Yes MARILEE JOHNSON Aug 06, 2018 19:30
--- NOTE | 2018-08-06 20:43 | NUR ---
PACU TRANSFERRED TO RM 609 IN STABLE COND. SP ERCP, DENIES PAIN OR DISCOMFORT 0. REPORT GIVEN TO KINGS BOOKER. Addendum: 08/06/18 at 2133 by COLTEN SORTO RN Amended: Links added.
[2018-08-07] VITALS (10 sets, daily range): BP systolic 124–139; BP diastolic 78–90; PULSE 72–93; RESP 18–85
[2018-08-07] MEDS: OCTREOTIDE 1 MG in DEXTROSE 5% 95 ML IV SCH ×2 (00:37→22:14)
[2018-08-07] MEDS: PANTOPRAZOLE 40 MG INJ IV SCH ×2 (05:52→17:13)
--- NOTE | 2018-08-07 06:09 | NUR ---
Pt. stable this shift , normal V/S, NSR, no pain verbalized , no SOB, O2 sat at RA= 96%, had 150cc urine output, intake 100 cc plus Octreotide drip at 5 ml /hr.
[2018-08-07] MEDS ORDERED: ALBUMIN HUMAN 25% 100 ML IV ONE (08:00)
--- NOTE | 2018-08-07 08:34 | PN ---
DATE: 08/07/2018 SUBJECTIVE: The patient yesterday underwent ERCP, which ruled out any extrahepatic biliary obstructi on. No other events noted. Please note, I spoke with the patient today, informing him of worsening renal function and the possibility of dialysis. The patient was aware and stated he will discuss crystal varela his family. No other events noted. OBJECTIVE: VITAL SIGNS: Blood pressure is 126/80, respirations 18, pulse 84, temperature 97.5. HEENT: Head is normocephalic. NECK: Supple. HEART: Regular rate. LUNGS: Show diminished breath sounds at the base. ABDOMEN: Soft, nontender to palpation without rebound or guarding. EXTREMITIES: Negative for clubbing, cyanosis. Positive edema. DERMATOLOGIC: No rashes. MUSCULOSKELETAL: No joint effusion. NEUROLOGIC: No change in exam. MEDICATIONS: Reviewed. LABORATORY DATA: Shows sodium 142, potassium 4.1, chloride 112, BUN 45, creatinine 4.17. White coun t 22.5, hemoglobin 10.0, platelet count is 138. ASSESSMENT AND PLAN: 1. Nonoliguric acute kidney injury with previously normal baseline creatinine. Etiology of acute ki dney injury is multifactorial secondary to tubular injury with underlying hepatorenal pathophysiology . The patient is currently on treatment for hepatorenal syndrome with octreotide, midodrine and albu min. The patient despite treatment continues to have decline in renal function. I informed the jackelyn ent of the possibility of dialysis. Questions were answered. The patient stated he will discuss crystal varela his family. At this point, the patient remains in injury phase of acute kidney injury. No immedia te need for renal replacement therapy at this time. We will continue to monitor renal function close ly. Continue current medical management. 2. Anemia. Monitor hemoglobin and hematocrit levels. 3. Mineral bone disorder. Monitor calcium and phosphorus levels. 4. Metabolic acidosis secondary to acute kidney injury. Continue to monitor. 5. Acute liver failure secondary to acute hepatitis. The patient is status post ERCP, which showed no evidence of extrahepatic biliary obstruction. Continue to monitor. Follow up with GI. 6. Systemic inflammatory response syndrome. Continue antibiotic therapy. 7. Volume overload secondary to acute kidney injury, acute liver failure. Continue to monitor. Dictated By: DIONY ROMEO/BLANCA Conf#: [id number] DID#: [id number] CC: JOSH LOREDO MD; DEIDRE BANKS MD;*[facility]*
[2018-08-07] MEDS: RIFAXIMIN 550 MG TAB PO SCH ×2 (09:00→20:45)
[2018-08-07] MEDS: MIDODRINE 2.5 MG TAB PO SCH ×2 (09:00→17:00)
[2018-08-07] MEDS: PENTOXIFYLLINE (SR) 400 MG TAB PO SCH (09:00)
[2018-08-07] MEDS: LACTULOSE 30ML CUP PO SCH ×2 (09:01→20:45)
--- NOTE | 2018-08-07 09:53 | PN ---
Date/Time of Note Date/Time of Note DATE: 08/07/18 TIME: 09:46 Assessment/Plan VTE Prophylaxis Risk score (from Ns)>0 risk: 1 [place] [facility] [place] Pharmacological prophylaxis: NA/contraindicated Pharm contraindication: liver dx Lines/Catheters [facility] Peripheral IV Urinary Cath still in place: No Assessment/Plan Hospital Course SUBJECTIVE: No acute distress.. OBJECTIVE: Vital signs-see below PHYSICAL EXAM: Constitutional: Well-developed, adequately built, lying in bed comfortably. Psych: nl mood/affect, no complaints Head: atraumatic, normocephalic Eyes: Icteric+ sclera. ENMT: mucosa pink and moist, nl external ears & nose Neck: non-tender, supple Respiratory: clear to auscultation, normal air movement Cardiovascular: nl pulses, regular rate and rhythm Gastrointestinal: non-tender, soft, bowel sounds active in all 4 quadrants. Musculoskeletal/extremities: Anasarca + annemarie LEs. nlmotor strength equal bilaterally, no focal deficit. Normal pulses Neurological: Alert oriented 3,nl speech, nl strength Skin: +Jaundiced. ASSESSMENT/PLAN: Very unfortunate 42-year old male with a history of recently diagnosed advanced alcoholic hepatitis, here with worsening lower extremity swelling, abdominal distention/pain and worsening jaundice, found to have transaminitis/hyperbilirubinemia with sepsis 1. Sepsis with transaminitis/hyperbilirubinemia, most likely 2/2 alcoholic hepatitis. -ERCP unremarkable for cholangitis... -White count slightly better today.. -cont. ertapenem, and Rifaximin -Cultures negative to date so far. Patient with not significant ascites for paracentesis. -abx mgmt per ID 2.Anasarca with severe alcoholic hepatitis. -Status post albumin/diuretics -Continue supportive care. 3. Severe Alcoholic hepatitis with coagulopathy/hyperbilirubinemia/transaminitis -DF=87=> on pentoxifylline renally dose. -Cessation advised. -Continue lactulose prophylaxis and rifaximin. -GI follow-up 4. Acute kidney injury likely secondary to ATN/possible hepatorenal syndrome -Management per nephrology. -Renally dose medications and monitor renal function. 5. Anemia of liver disease -Stable H&H. Monitor. DVT prophylaxis: SCDs/ambulation PUD prophylaxis: Protonix Diet: Renal/2 g sodium diet CODE STATUS: Full code Disposition: Continue current medical management. Follow-up GI and renal recommendations. Patient was seen in collaboration with Result Diagram: 08/07/18 0456 08/07/18 0456 Results 24hrs Laboratory Tests Test 08/06/18 09:59 08/07/18 04:56 Prothrombin Time 21.3 #H Prothrombin Time Ratio 1.7 INR International Normalized Ratio 1.84 White Blood Count 22.5 H Red Blood Count 2.89 L Hemoglobin 10.0 L Hematocrit 29.3 L Mean Corpuscular Volume 101.4 H Mean Corpuscular Hemoglobin 34.6 H Mean Corpuscular Hemoglobin Concent 34.1 Red Cell Distribution Width 16.4 H Platelet Count 138 L Mean Platelet Volume 9.6 Immature Granulocytes % 2.700 H Neutrophils % 84.2 H Lymphocytes % 6.4 L Monocytes % 5.7 Eosinophils % 0.8 Basophils % 0.2 Nucleated Red Blood Cells % 0.0 Immature Granulocytes # 0.610 H Neutrophils # 18.9 H Lymphocytes # 1.5 Monocytes # 1.3 H Eosinophils # 0.2 Basophils # 0.1 Nucleated Red Blood Cells # 0.0 Sodium Level 142 Potassium Level 4.1 Chloride Level 112 H Carbon Dioxide Level 19 L Anion Gap 11 Blood Urea Nitrogen 45 H Creatinine 4.17 H Est Glomerular Filtrat Rate mL/min 16 L Glucose Level 100 Calcium Level 9.1 Phosphorus Level 5.7 H Magnesium Level 2.4 Total Bilirubin 18.6 H Direct Bilirubin 16.30 *H Indirect Bilirubin 2.3 H Aspartate Amino Transf (AST/SGOT) 77 H Alanine Aminotransferase (ALT/SGPT) 14 Alkaline Phosphatase 120 Ammonia 34 H Total Protein 5.4 L Albumin 2.5 L Exam/Review of Systems Exam Vitals Vital Signs Date Temp Pulse Resp B/P (MAP) Pulse Ox O2 O2 Flow FiO2 Time Delivery Rate 08/07/18 89 08:43 08/07/18 97.9 19 125/78 96 07:39 (94) 08/07/18 Room Air 06:16 08/07/18 2.0 03:58 Intake and Output 08/06/18 08/06/18 08/07/18 1515:00 23:00 07:00 IntakeIntake Total 150 ml 110 ml 160 ml OutputOutput Total 350 ml 150 ml BalanceBalance 150 ml -240 ml 10 ml Results Results 24hrs Laboratory Tests Test 08/06/18 09:59 08/07/18 04:56 Prothrombin Time 21.3 #H Prothrombin Time Ratio 1.7 INR International Normalized Ratio 1.84 White Blood Count 22.5 H Red Blood Count 2.89 L Hemoglobin 10.0 L Hematocrit 29.3 L Mean Corpuscular Volume 101.4 H Mean Corpuscular Hemoglobin 34.6 H Mean Corpuscular Hemoglobin Concent 34.1 Red Cell Distribution Width 16.4 H Platelet Count 138 L Mean Platelet Volume 9.6 Immature Granulocytes % 2.700 H Neutrophils % 84.2 H Lymphocytes % 6.4 L Monocytes % 5.7 Eosinophils % 0.8 Basophils % 0.2 Nucleated Red Blood Cells % 0.0 Immature Granulocytes # 0.610 H Neutrophils # 18.9 H Lymphocytes # 1.5 Monocytes # 1.3 H Eosinophils # 0.2 Basophils # 0.1 Nucleated Red Blood Cells # 0.0 Sodium Level 142 Potassium Level 4.1 Chloride Level 112 H Carbon Dioxide Level 19 L Anion Gap 11 Blood Urea Nitrogen 45 H Creatinine 4.17 H Est Glomerular Filtrat Rate mL/min 16 L Glucose Level 100 Calcium Level 9.1 Phosphorus Level 5.7 H Magnesium Level 2.4 Total Bilirubin 18.6 H Direct Bilirubin 16.30 *H Indirect Bilirubin 2.3 H Aspartate Amino Transf (AST/SGOT) 77 H Alanine Aminotransferase (ALT/SGPT) 14 Alkaline Phosphatase 120 Ammonia 34 H Total Protein 5.4 L Albumin 2.5 L Medications Medication Current Medications Octreotide Acetate 1 mg/ Dextrose 100 ml @ 5 mls/hr Q20H IV Last administered on 08/07/18at 00:37; Admin Dose 5 MLS/HR; Start 08/02/18 at 19:30 Midodrine (Proamatine) 5 mg BID@09,17 PO Last administered on 08/06/18at 07:58; Admin Dose 5 MG; Start 08/05/18 at 09:00 Pantoprazole (Protonix Iv) 40 mg BID@06,18 IV Last administered on 08/07/18at 05:52; Admin Dose 40 MG; Start 08/05/18 at 18:00 Pentoxifylline (Trental) 400 mg DAILY PO Last administered on 08/07/18at 09:00; Admin Dose 400 MG; Start 08/05/18 at 10:30 Ertapenem 0.5 gm/ Sodium Chloride 100 ml @ 200 mls/hr Q24H IVPB Last administered on 08/06/18at 12:13; Admin Dose 200 MLS/HR; Start 08/05/18 at 12:00 Lactulose (Enulose) 20 gm BID PO Last administered on 08/07/18at 09:01; Admin Dose 20 GM; Start 08/06/18 at 09:00 Rifaximin (Xifaxan) 550 mg BID PO Last administered on 08/07/18at 09:00; Admin Dose 550 MG; Start 08/06/18 at 09:00 ZAMZAM FREEMAN NP Aug 07, 2018 09:53
--- NOTE | 2018-08-07 12:48 | CONS ---
Assessment/Plan Assessment/Plan Hospital Course (Demo Recall) Patient is alert denies pain, looks comfortable, no fevers overnight. WBC 22.5 H&H 10 and 29.3 platelets 138 neutrophils 84.2 BUN 45 creatinine 4.17 total bilirubin 18.6, ammonia 34 albumin 2.5 Antimicrobials: Invanz Physical examination: Well-developed ill-appearing middle-aged man who is awake in no distress. Head atraumatic normocephalic neck is supple chest rise symmetrical breath sounds diminished bases. Heart: S1-S2. Abdomen obese distended soft bowel sounds present extremities without cyanosis Assessment: 1. Systemic inflammatory response syndrome with ongoing leukocytosis 2. Jaundice, status post ERCP that was normal 3. Alcoholic hepatitis 4. Acute renal failure likely hepatorenal syndrome 5. Acute liver failure Plan: Patient is clinically stable, all cultures since admission were negative, will reculture him and order chest x-ray. GI/renal recommendations noted Consultation Date/Type/Reason Admit Date/Time Jul 31, 2018 at 10:31 Initial Consult Date 08/02/18 Type of Consult id Date/Time of Note DATE: 08/07/18 TIME: 12:48 Exam/Review of Systems Exam Vitals Vital Signs Date Temp Pulse Resp B/P (MAP) Pulse Ox O2 O2 Flow FiO2 Time Delivery Rate 08/07/18 97.7 86 85 132/85 96 Room Air 12:16 (101) 08/07/18 2.0 03:58 Intake and Output 08/06/18 08/06/18 08/07/18 1515:00 23:00 07:00 IntakeIntake Total 150 ml 110 ml 160 ml OutputOutput Total 350 ml 150 ml BalanceBalance 150 ml -240 ml 10 ml Results Result Diagram: 08/07/18 0456 08/07/18 0456 Results 24hrs Laboratory Tests Test 08/07/18 04:56 White Blood Count 22.5 H Red Blood Count 2.89 L Hemoglobin 10.0 L Hematocrit 29.3 L Mean Corpuscular Volume 101.4 H Mean Corpuscular Hemoglobin 34.6 H Mean Corpuscular Hemoglobin Concent 34.1 Red Cell Distribution Width 16.4 H Platelet Count 138 L Mean Platelet Volume 9.6 Immature Granulocytes % 2.700 H Neutrophils % 84.2 H Lymphocytes % 6.4 L Monocytes % 5.7 Eosinophils % 0.8 Basophils % 0.2 Nucleated Red Blood Cells % 0.0 Immature Granulocytes # 0.610 H Neutrophils # 18.9 H Lymphocytes # 1.5 Monocytes # 1.3 H Eosinophils # 0.2 Basophils # 0.1 Nucleated Red Blood Cells # 0.0 Sodium Level 142 Potassium Level 4.1 Chloride Level 112 H Carbon Dioxide Level 19 L Anion Gap 11 Blood Urea Nitrogen 45 H Creatinine 4.17 H Est Glomerular Filtrat Rate mL/min 16 L Glucose Level 100 Calcium Level 9.1 Phosphorus Level 5.7 H Magnesium Level 2.4 Total Bilirubin 18.6 H Direct Bilirubin 16.30 *H Indirect Bilirubin 2.3 H Aspartate Amino Transf (AST/SGOT) 77 H Alanine Aminotransferase (ALT/SGPT) 14 Alkaline Phosphatase 120 Ammonia 34 H Total Protein 5.4 L Albumin 2.5 L Medications Medication Current Medications Octreotide Acetate 1 mg/ Dextrose 100 ml @ 5 mls/hr Q20H IV Last administered on 08/07/18 00:37; Admin Dose 5 MLS/HR; Start 08/02/18 at 19:30 Midodrine (Proamatine) 5 mg BID@09,17 PO Last administered on 08/06/18 07:58; Admin Dose 5 MG; Start 08/05/18 at 09:00 Pantoprazole (Protonix Iv) 40 mg BID@06,18 IV Last administered on 08/07/18 05:52; Admin Dose 40 MG; Start 08/05/18 at 18:00 Pentoxifylline (Trental) 400 mg DAILY PO Last administered on 08/07/18 09:00; Admin Dose 400 MG; Start 08/05/18 at 10:30 Ertapenem 0.5 gm/ Sodium Chloride 100 ml @ 200 mls/hr Q24H IVPB Last administered on 08/06/18 12:13; Admin Dose 200 MLS/HR; Start 08/05/18 at 12:00 Lactulose (Enulose) 20 gm BID PO Last administered on 08/07/18 09:01; Admin Dose 20 GM; Start 08/06/18 at 09:00 Rifaximin (Xifaxan) 550 mg BID PO Last administered on 08/07/18 09:00; Admin Dose 550 MG; Start 08/06/18 at 09:00 TADEO ZAMUDIO NP Aug 07, 2018 12:48
--- NOTE | 2018-08-07 13:16 | NUR ---
SW: ETOH ABUSE SW met with this 42-year-old Sammarinese speaking male at bedside with claims processor. Patient reports living with his , children and grandchildren at [address] [place] [address]. States he has two minor children ages 1 1/2 and 11 y/o. Patient states the 11 y/o is in school, and patient's 24-year-old step daughter taking care of his 1 1/2 year old child. Patient states he was independent at home prior to hospitalization. States he drives a car and denies any issues with transportation. 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 Patient denies having an AHCD and he verbally designated his Chantal Rivera ([phone]) as surrogate medical spokesperson. Patient denies any history of anxiety, depression or mental illness. Substance use: Patient reports drinking alcohol heavily, and states he stopped drinking on June 25. States that he was drinking every Sunday, Sunday and Sunday. States he was drinking more heavily in April and May, such as drinking about 2 bottles of tequila between Sunday- Sunday. States that he was previously drinking only beer on the weekends. Patient states that he plans to quit drinking on his own, and states he has been sober since June 25, 2018. States that if he thinks he needs help, he will ask for help, but states that he is not interested in resources at this time. Patient denies any drug use/abuse. Denies any history of DUI's. Denies drinking and driving with the children in the car. States he hides his alcohol so his children do not have access. Denies caring for them while under influence. Patient denies any questions/ concerns at this time. Plan is for patient to return back home. Denies any issues/ concerns/ questions at this time. Patient declined any/ all resources at this time. Patient aware that SW remains available as needed throughout patient's treatment process.
[2018-08-07] MEDS: ERTAPENEM SODIUM 0.5 GM in SOD CHLORIDE 0.9% 100 ML IVPB SCH (13:35)
--- NOTE | 2018-08-07 16:11 | PN ---
Date/Time of Note Date/Time of Note DATE: 08/07/18 TIME: 16:08 Assessment/Plan VTE Prophylaxis Risk score (from Ns)>0 risk: 1 SCD applied (from Ns): Yes Pharmacological prophylaxis: other (scds) Lines/Catheters IV [facility]ter Type (from [facility] Peripheral IV Urinary Cath still in place: No Assessment/Plan Hospital Course Assessment/Plan Assessment: Alcoholic liver cirrhosis Direct hyperbilirubinemia Impression: Normal ERCP. Hepatorenal syndrome Sepsis -rule out SBP Coagulopathy Chronic alcohol abuse Obesity History of recent pneumonia Plan: Continue present regimen. The jaundice and elevated white blood cell count very likely represent alcoholic hepatitis-patient started on Trental (DF 42) Discussed with patient recommendations to proceed with paracentesis to r/o SBP- although elevated WBC can been seen in alcoholic hepatitis - patient refused paracentesis at this time. Defer octreotide management to nephrology- Patient seen in collaboration with Dr. Mohamud Subjective/Free text: Pt appears comfortable, discussed results of ERCP. and poss plan for paracentesis. Patient refused paracentesis at this time Will maintain close observation. PHYSICAL EXAMINATION: GENERAL: Well developed, well nourished, alert & oriented x 3, in no acute distress SKIN: No lesions, jaundice, no evidence of bleeding diathesis EYES: Pupils equal reactive to light and accommodation, full extraocular movements, sclera-icteric, no discharge. EARS/NOSE AND THROAT: Ears normal, nose normal, oropharynx normal, oral membranes well hydrated without lesions. NECK: Supple, no masses, thyroid buster CHEST: Inspection within normal limits. CARDIOVASCULAR: Heart: Regular rate and rhythm, no murmurs RESPIRATORY: Lungs clear to auscultation and percussion, no wheezing, no rubs GASTROINTESTINAL AND LIVER: Abdomen: Soft, non tenderness, non-distended, umbilical hernias, ascites, no guarding, no rebound tenderness, normoactive bowel sounds. Rectal: Deferred. GENITOURINARY: Male genitalia within normal limits. EXTREMITIES: No cyanosis. Lower extremities edema. Result Diagram: 08/07/18 0456 08/07/18 0456 Results 24hrs Laboratory Tests Test 08/07/18 04:56 White Blood Count 22.5 H Red Blood Count 2.89 L Hemoglobin 10.0 L Hematocrit 29.3 L Mean Corpuscular Volume 101.4 H Mean Corpuscular Hemoglobin 34.6 H Mean Corpuscular Hemoglobin Concent 34.1 Red Cell Distribution Width 16.4 H Platelet Count 138 L Mean Platelet Volume 9.6 Immature Granulocytes % 2.700 H Neutrophils % 84.2 H Lymphocytes % 6.4 L Monocytes % 5.7 Eosinophils % 0.8 Basophils % 0.2 Nucleated Red Blood Cells % 0.0 Immature Granulocytes # 0.610 H Neutrophils # 18.9 H Lymphocytes # 1.5 Monocytes # 1.3 H Eosinophils # 0.2 Basophils # 0.1 Nucleated Red Blood Cells # 0.0 Sodium Level 142 Potassium Level 4.1 Chloride Level 112 H Carbon Dioxide Level 19 L Anion Gap 11 Blood Urea Nitrogen 45 H Creatinine 4.17 H Est Glomerular Filtrat Rate mL/min 16 L Glucose Level 100 Calcium Level 9.1 Phosphorus Level 5.7 H Magnesium Level 2.4 Total Bilirubin 18.6 H Direct Bilirubin 16.30 *H Indirect Bilirubin 2.3 H Aspartate Amino Transf (AST/SGOT) 77 H Alanine Aminotransferase (ALT/SGPT) 14 Alkaline Phosphatase 120 Ammonia 34 H Total Protein 5.4 L Albumin 2.5 L Exam/Review of Systems Exam Vitals Vital Signs Date Temp Pulse Resp B/P (MAP) Pulse Ox O2 O2 Flow FiO2 Time Delivery Rate 08/07/18 97.9 88 20 131/85 96 Room Air 15:28 (100) 08/07/18 2.0 03:58 Intake and Output 08/06/18 08/06/18 08/07/18 1515:00 23:00 07:00 IntakeIntake Total 150 ml 110 ml 160 ml OutputOutput Total 350 ml 150 ml BalanceBalance 150 ml -240 ml 10 ml Results Results 24hrs Laboratory Tests Test 08/07/18 04:56 White Blood Count 22.5 H Red Blood Count 2.89 L Hemoglobin 10.0 L Hematocrit 29.3 L Mean Corpuscular Volume 101.4 H Mean Corpuscular Hemoglobin 34.6 H Mean Corpuscular Hemoglobin Concent 34.1 Red Cell Distribution Width 16.4 H Platelet Count 138 L Mean Platelet Volume 9.6 Immature Granulocytes % 2.700 H Neutrophils % 84.2 H Lymphocytes % 6.4 L Monocytes % 5.7 Eosinophils % 0.8 Basophils % 0.2 Nucleated Red Blood Cells % 0.0 Immature Granulocytes # 0.610 H Neutrophils # 18.9 H Lymphocytes # 1.5 Monocytes # 1.3 H Eosinophils # 0.2 Basophils # 0.1 Nucleated Red Blood Cells # 0.0 Sodium Level 142 Potassium Level 4.1 Chloride Level 112 H Carbon Dioxide Level 19 L Anion Gap 11 Blood Urea Nitrogen 45 H Creatinine 4.17 H Est Glomerular Filtrat Rate mL/min 16 L Glucose Level 100 Calcium Level 9.1 Phosphorus Level 5.7 H Magnesium Level 2.4 Total Bilirubin 18.6 H Direct Bilirubin 16.30 *H Indirect Bilirubin 2.3 H Aspartate Amino Transf (AST/SGOT) 77 H Alanine Aminotransferase (ALT/SGPT) 14 Alkaline Phosphatase 120 Ammonia 34 H Total Protein 5.4 L Albumin 2.5 L Medications Medication Current Medications Octreotide Acetate 1 mg/ Dextrose 100 ml @ 5 mls/hr Q20H IV Last administered on 08/07/18 00:37; Admin Dose 5 MLS/HR; Start 08/02/18 at 19:30 Midodrine (Proamatine) 5 mg BID@09,17 PO Last administered on 08/06/18 07:58; Admin Dose 5 MG; Start 08/05/18 at 09:00 Pantoprazole (Protonix Iv) 40 mg BID@06,18 IV Last administered on 08/07/18 05:52; Admin Dose 40 MG; Start 08/05/18 at 18:00 Pentoxifylline (Trental) 400 mg DAILY PO Last administered on 08/07/18 09:00; Admin Dose 400 MG; Start 08/05/18 at 10:30 Ertapenem 0.5 gm/ Sodium Chloride 100 ml @ 200 mls/hr Q24H IVPB Last administered on 08/07/18 13:35; Admin Dose 200 MLS/HR; Start 08/05/18 at 12:00 Lactulose (Enulose) 20 gm BID PO Last administered on 08/07/18 09:01; Admin Dose 20 GM; Start 08/06/18 at 09:00 Rifaximin (Xifaxan) 550 mg BID PO Last administered on 08/07/18 09:00; Admin Dose 550 MG; Start 08/06/18 at 09:00 BUFFY FAN Aug 07, 2018 16:11
[2018-08-08] VITALS: BP 127/80; PULSE 84; PULSE 85; RESP 18
[2018-08-08 04:00] VITALS: BP 119/77; PULSE 85; RESP 18
[2018-08-08] MEDS: PANTOPRAZOLE 40 MG INJ IV SCH (06:06)
--- NOTE | 2018-08-08 06:13 | NUR ---
EOSS Pt. a/o x4. Able to ambulate. Pt. stable, vital signs WNL. No complaints of pain. Octreotide drip running at 5 ml/hr. Hourly rounding completed. Call light within reach. All needs met and attended too. No significant changes noted. Will endorse continuity of care to day shift.
[2018-08-08 08:00] VITALS: BP 123/83; PULSE 73; RESP 19
[2018-08-08] MEDS ORDERED: ALBUMIN HUMAN 25% 100 ML IV ONE (08:00)
[2018-08-08 08:09] VITALS: PULSE 91
[2018-08-08] MEDS: PENTOXIFYLLINE (SR) 400 MG TAB PO SCH (08:24)
[2018-08-08] MEDS: RIFAXIMIN 550 MG TAB PO SCH (08:24)
[2018-08-08] MEDS: LACTULOSE 30ML CUP PO SCH (08:24)
--- NOTE | 2018-08-08 08:35 | PN ---
DATE: 08/08/2018 SUBJECTIVE: Subjectively, I spent over 30 minutes yesterday discussing with the patient and the jackelyn ent's family about his ongoing acute kidney injury. All questions were answered. The patient did st ate that he wishes a second opinion. Overnight, no other events noted. This morning, the patient re mained stable. No fevers, chills, nausea, or vomiting. Urinary output has been marginal. OBJECTIVE: VITAL SIGNS: Blood pressure is 119/77, respirations 18, pulse 85, temperature 97.9. HEENT: Head is normocephalic. NECK: Supple. HEART: Regular rate. LUNGS: Show diminished breath sounds at the base. ABDOMEN: Soft, nontender to palpation. No rebound or guarding. EXTREMITIES: Negative for clubbing, cyanosis. Positive edema. DERMATOLOGIC: No rashes. MUSCULOSKELETAL: No joint effusion. NEUROLOGIC: No change in exam. MEDICATIONS: Reviewed. LABORATORY DATA: Shows sodium 140, potassium 4.1, chloride 110, BUN 51, creatinine 4.43, direct bili santizo 17.7. White count 21.8, hemoglobin 9.6, and platelet count is 125. ASSESSMENT AND PLAN: 1. Nonoliguric acute kidney injury with previously normal baseline creatinine. Etiology of acute ki dney injury is multifactorial secondary to tubular injury with underlying hepatorenal pathophysiology . The patient is currently on treatment for hepatorenal syndrome with octreotide, midodrine and albu min. The patient's renal function continues to decline. Urinary output has been minimal. Please no te, I discussed in detail with the patient and the patient's family on multiple occasions about dialy sis. The patient does not want to start dialysis at this time. We will therefore continue current t reatment. Continue medical management. 2. Anemia. Continue to monitor hemoglobin and hematocrit levels. 3. Mineral bone disorder, monitor calcium and phosphorus levels. 4. Metabolic acidosis likely secondary to acute kidney injury. Continue to monitor. 5. Acute hepatitis on top of cirrhosis. The patient is status post ERCP. No evidence of extrahepat ic biliary obstruction. Continue to monitor. The patient is on Trental due to elevated discriminant factor. 6. Systemic inflammatory response syndrome. The patient is on antibiotics, continue to monitor. 7. Volume overload secondary to acute kidney injury. 8. Acute liver failure. Continue to monitor. Defer any diuretic therapy at this time. Dictated By: DIONY ROMEO/BLANCA Conf#: [id number] DID#: [id number] CC: DEIDRE BANKS MD; JOSH LOREDO MD;*End*
[2018-08-08] MEDS ORDERED: MIDODRINE 2.5 MG TAB PO SCH (10:30)
--- NOTE | 2018-08-08 11:20 | NUR ---
RN NOTES: AROUND 10:05 AM, ZAMZAM OSORIO, MILL ROLL REWINDER AND RN WENT TO SPEAK WITH PT WITH CLOTH WINDER REGARDING HIS HEALTH STATUS. PER ZAMZAM, PT IS NOT MEDICALLY STABLE TO BE DISCHARGED HOME, BUT PT WANTS TO GO HOME AND WORK FOR 2 WEEKS TO PAY HIS RENT THEN GO BACK TO THE HOSPITAL TO TAKE CARE OF HIS HEALTH. PT HAS BEEN EXPLAINED THE RISKS AND CONSEQUENCES OF LEAVING THE HOSPITAL WITHOUT DOCTORS DISCHARGE CLEARANCE, AND THE BENEFITS OF CONTINUED TREATMENT AND HOSPITALIZATION. AROUND 10:20 AM, NURSING COMPUTER GAME DESIGNER ALSO SPOKE WITH PT WITH FLAVORING OIL FILTERER BUT PT STILL WANTS TO LEAVE AMA. 11:00 AM, NURSE USED VIDEO FLAVORING OIL FILTERER WITH ID # [id number] TO ABLE TO EXPLAIN TO PT THE AMA FORM AND THE RISKS OF LEAVING THE HOSPITAL AT THIS TIME. PT AGREED AND SIGNED PAPER. PT'S TRACTOR TRAILER MOVING VAN DRIVER IS OFF. BOTH IV'S HAVE BEEN DC'D WITH TIP INTACT, APPLIED DRESSING AND HELD PRESSURE. PT'S ID BAND HAS BEEN REMOVED.
--- NOTE | 2018-08-08 13:25 | DS ---
Date/Time of Note Date/Time of Note DATE: 08/08/18 TIME: 13:21 Discharge Summary Admission/Discharge Info Admit Date/Time Jul 31, 2018 at 10:31 Discharge Date/Time Aug 08, 2018 at 11:54(Against medical advice) Discharge Diagnosis 1. Sepsis with transaminitis/hyperbilirubinemia, most likely 2/2 alcoholic hepatitis. 2.Anasarca with severe alcoholic hepatitis. 3. Severe Alcoholic hepatitis with coagulopathy/hyperbilirubinemia/transaminitis 4. Acute kidney injury likely secondary to ATN/possible hepatorenal syndrome 5. Anemia of liver disease Consults , gastroenterology , infectious disease Dr. Ruiz, nephrology Procedures 08/03/2018. MRI abdomen without contrast IMPRESSION: 1. Very limited examination due to extensive artifacts, possibly related to ascites. In particular, biliary tree is completely obscured. 2. Mild diffuse wall thickening of visualized fundus of gallbladder, nonspecific finding. Correlation with abdominal sonogram would be helpful. 3. Small volume ascites. 4. Small bilateral pleural effusions, right greater than left. 08/02/2018. MRCP. IMPRESSION: Hepatosplenomegaly again seen. Small amount of ascites increased compared to previous MRI. Nonspecific diffuse gallbladder wall edema is again seen. Diffuse subcutaneous edema appearing since previous MRI. Small right pleural effusion appearing since previous MRI. The region of the pancreas and extrahepatic bile duct are not well seen apparently due to artifact. Please see above. 08/06/2018. ERCP Procedure Performed: ERCP 07/31/2018. Renal ultrasound. IMPRESSION: 1. No evidence of urolithiasis, obstructive uropathy or renal mass. echogenic kidneys compatible with renal medical disease. 2. Ascites. 3. Hepato splenomegaly. Hospital Course Very unfortunate 42-year old male with a history of recently diagnosed advanced alcoholic hepatitis, here with worsening lower extremity swelling, abdominal distention/pain and worsening jaundice, found to have transaminit is/hyperbilirubinemia with sepsis. Patient underwent multiple imaging studies, unremarkable for any biliary obstruction or inflammatory disease. Patient did not have significant ascites. His cultures were also negative. However, patient was noted with persistent leukocytosis for which he was being followed by our ID colleagues as well. Patient also underwent a diagnostic ERCP, normal study. He was noted with worsening renal function with anasarca secondary to alcoholic hepatitis. Patient was continued on maximal medical management and was being followed by GI and renal colic. Patient was continued on pentoxifylline, lactulose, rifaximin and broad-spectrum antimicrobial. His renal function deteriorated further to a point that patient was recommended to start on hemodialysis. Patient was not receptive to the treatment and hemodialysis and he does not want to stay in the hospital for any further workup and wanted to be discharged. Patient had decided to leave AGAINST MEDICAL ADVICE. Patient has normal mental status and full decisional capacity. Patient states that he is going to seek medical attention at [facility] or [facility] after he takes care of his social situation. Patient understood her condition and the risk of leaving AMA, including but not limited to permanent disability, etc., and had an opportunity to ask questions about own medical condition. The patient has been informed that the patent may return for care anytime and has been referred to primary care provider for follow-up as soon as possible. Day of discharge, patient had a white count 21,800, platelet 125, creatinine 4.43, total bilirubin 17.7 with direct bilirubin 15.30. Since patient went AMA, no prescriptions were given. [place] translation was used during the entire conversation with the patient. Case d/w . Home Meds Active Scripts Pentoxifylline* (Pentoxifylline*) 400 Mg Tablet.sa, 400 MG PO TID for 25 Days, #75 TAB Prov:CHERYLDONOVAN 07/12/18 Primary Care Provider Care Physician No Primary Pending Labs Laboratory Tests Test 08/08/18 05:16 White Blood Count 21.8 10^3/ul (4.8-10.8) Red Blood Count 2.86 10^6/ul (4.70-6.10) Hemoglobin 9.6 g/dl (14.0-18.0) Hematocrit 29.0 % (42.0-52.0) Mean Corpuscular Volume 101.4 fl (82.0-101.0) Mean Corpuscular Hemoglobin 33.6 pg (29.0-33.0) Mean Corpuscular Hemoglobin Concent 33.1 g/dl (32.0-37.0) Red Cell Distribution Width 16.7 % (11.5-14.5) Platelet Count 125 10^3/UL (140-415) Mean Platelet Volume 9.6 fl (7.4-10.4) Immature Granulocytes % 1.800 % (0.001-0.429) Neutrophils % 85.4 % (39.0-77.0) Lymphocytes % 5.2 % (15.0-51.0) Monocytes % 5.7 % (0.0-11.0) Eosinophils % 1.7 % (0.0-7.0) Basophils % 0.2 % (0.0-2.0) Nucleated Red Blood Cells % 0.0 /100WBC (0.0-0.0) Immature Granulocytes # 0.400 10^3/ul (0.0-0.031) Neutrophils # 18.6 10^3/ul (1.6-7.5) Lymphocytes # 1.1 10^3/ul (0.8-2.9) Monocytes # 1.2 10^3/ul (0.3-0.9) Eosinophils # 0.4 10^3/ul (0.0-0.5) Basophils # 0.0 10^3/ul (0.0-0.1) Nucleated Red Blood Cells # 0.0 10^3/ul (0.0-0.0) Sodium Level 140 mmol/L (135-144) Potassium Level 4.1 mmol/L (3.5-5.1) Chloride Level 110 mmol/L (97-110) Carbon Dioxide Level 18 mmol/L (21-31) Anion Gap 12 (5-13) Blood Urea Nitrogen 51 mg/dl (7-20) Creatinine 4.43 mg/dl (0.61-1.24) Est Glomerular Filtrat Rate mL/min 15 mL/min (>60) Glucose Level 90 mg/dl (70-220) Calcium Level 9.0 mg/dl (8.4-10.2) Phosphorus Level 4.7 mg/dl (2.5-4.9) Magnesium Level 2.5 mg/dl (1.7-2.5) Total Bilirubin 17.7 mg/dl (0.2-1.3) Direct Bilirubin 15.30 mg/dl (0.00-0.20) Indirect Bilirubin 2.4 mg/dl (0-1.1) Aspartate Amino Transf (AST/SGOT) 88 IU/L (15-46) Alanine Aminotransferase (ALT/SGPT) 13 IU/L (13-69) Alkaline Phosphatase 123 IU/L (42-121) Total Protein 5.4 g/dl (6.1-8.1) Albumin 2.5 g/dl (3.3-4.9) Microbiology Date/Time Source Procedure Growth Status 08/07/18 18:08 Clean Catch Urine Urine Culture - Preliminary NO Resulted GROWTH AFTER 24 HOURS 08/07/18 15:40 Nares MRSA Screen - Preliminary Screening Resulted in process ZAMZAM FREEMAN NP Aug 08, 2018 13:25
== END 2018-08-08 11:54 | disposition left against medical advice (07) | DRG 871 ==
LOC: E/R 08:38 → 6WM 10:31
PROVIDERS: ADMIT Family Medicine; ATTEND Family Medicine
PROC: BF10YZZ Fluoroscopy of Bile Ducts using Other Contrast (ICD-10-PCS; 2018-08-06)
PROC: 0FJB8ZZ Inspection of Hepatobiliary Duct, Via Natural or Artificial Opening Endoscopic (ICD-10-PCS; principal; 2018-08-06 16:30)
DX: A41.9 Sepsis, unspecified organism (principal); K76.7 Hepatorenal syndrome; K72.00 Acute and subacute hepatic failure without coma; K65.2 Spontaneous bacterial peritonitis; N17.0 Acute kidney failure with tubular necrosis; E87.1 Hypo-osmolality and hyponatremia; K83.09 Other cholangitis; D68.4 Acquired coagulation factor deficiency; R65.20 Severe sepsis without septic shock; D63.8 Anemia in other chronic diseases classified elsewhere; E87.79 Other fluid overload; F10.20 Alcohol dependence, uncomplicated; K70.11 Alcoholic hepatitis with ascites; K70.31 Alcoholic cirrhosis of liver with ascites; E66.9 Obesity, unspecified; Z68.33 Body mass index [BMI] 33.0-33.9, adult
CPT/HCPCS: 36415; 36430; 36600; 71045; 74181; 74330; 76705; 76775; 80048; 80053; 80076; 81001; 81003; 82043; 82140; 82803; 83690; 83735; 84100; 84155; 84300; 84484; 85025; 85610; 85651; 85730; 86038; 86255; 86704; 86709; 86803; 86850; 86900; 86901; 87040; 87081; 87086; 87340; 93005; 96374; C9113; J0713; J1335; J2354; J2543; J7030; J7040; P9047; P9059; Q9967